=== PATIENT | female | born 1940 | race Caucasian/White ===

== ENCOUNTER 2018-12-25 10:05 | Observation (INO) | payer MEDICARE, BC ==
[2018-12-25] MEDS ORDERED: Sodium Chloride 0.9% 1,000 ML IV ONE ×2 (10:45→17:31)
--- NOTE | 2018-12-25 11:07 | EDM.PDOC ---
ED HPI GENERAL MEDICAL PROBLEM - General Chief Complaint: General Stated Complaint: CONFUSED Time Seen by Provider: 12/25/18 10:09 Source of Information: Reports: Patient History Limitations: Reports: No Limitations - History of Present Illness INITIAL COMMENTS - FREE TEXT/NARRATIVE: HISTORY AND PHYSICAL: History of present illness: Patient is a 78-year-old female who presents to the ED today for concern that her boss at work thought she was confused. Patient states she does not feel confused. Patient states she did have surgery approximately one week ago in order to have a port put in to receive chemotherapy through. Patient states she also had a colon resection little over a week ago and will start chemotherapy next week. Patient states she does not have any complaints today but states maybe feels a "little bit dehydrated and maybe this is what her boss was noticing." She denies any pain over the area of the port or any change in skin texture or color over the port. She denies any abdominal pain or drainage from any of her incision sites. Patient denies any other symptoms or concerns at this time. Patient denies fever, chills, chest pain, shortness of breath, or cough. Denies headache, neck stiff ness, change in vision, syncope, or near syncope. Denies nausea, vomiting, abdominal pain, diarrhea, constipation, or dysuria. Has not noted any blood in urine or stool. Patient has been eating and drinking appropriately. Review of systems: As per history of present illness and below otherwise all systems reviewed and negative. Past medical history: As per history of present illness and as reviewed below otherwise noncontributory. Surgical history: As per history of present illness and as reviewed below otherwise noncontributory. Social history: See social history for further information Family history: As per history of present illness and as reviewed below otherwise noncontributory. Physical exam: General: Patient is alert, oriented, and in no acute distress. Patient sitting comfortably on exam table. HEENT: Atraumatic, normocephalic, pupils equal and reactive bilaterally, negative for conjunctival pallor or scleral icterus, mucous membranes moist, TMs normal bilaterally, throat clear, neck supple, nontender, trachea midline. No drooling or trismus noted. No meningeal signs. No hot potato voice noted. Lungs: Clear to auscultation, breath sounds equal bilaterally, chest nontender. Heart: S1S2, regular rate and rhythm without overt murmur Abdomen: Soft, nondistended, nontender. Negative for masses or hepatosplenomegaly. Negative for costovertebral tenderness. Pelvis: Stable nontender. Genitourinary: Deferred. Rectal: Deferred. Skin: Intact, warm, dry. No lesions or rashes noted. Extremities: Atraumatic, negative for cords or calf pain. Neurovascular unremarkable. Neuro: Awake, alert, oriented. Cranial nerves II through XII unremarkable. Cerebellum unremarkable. Motor and sensory unremarkable throughout. Exam nonfocal. Notes: Dr. Tinsley directly involved in patient care. Patient breathing comfortably on room air with 96-97% on room air. Dr. Saenz, general surgery, curb side on patient and states would not place chest tube at this time and rather admit for observation to see if the does resolve / improve on its own. Dr. Gaston consult on patient and will admit to observation. Voices understanding and is agreeable to plan of care. Denies any further questions or concerns at this time. Diagnostics: CBC, CMP, bedside glucose, UA, CXR, EKG, Head CT, lipase, blood cultures x 2 Therapeutics: NS Impression: Right pneumothorax Right pleural effusion, small Left pleural effusion, small Left lung consolidation, unspecified Anemia Elevated renal function tests Plan: 1. Admit to observation to Dr. Gaston Definitive disposition and diagnosis as appropriate pending reevaluation and review of above. - Related Data Allergies Allergy/AdvReac Type Severity Reaction Status Date / Time No Known Allergies Allergy Verified 12/25/18 10:19 Home Meds: Home Meds Pantoprazole [ProTONIX] 1 tab PO DAILY 12/25/18 [History] Past Medical History HEENT History: Reports: Impaired Vision, Other (See Below) Other HEENT History: weaRS GLASSES Cardiovascular History: Reports: Hypertension - Past Surgical History GI Surgical History: Reports: Colonoscopy, Other (See Below) Other GI Surgeries/Procedures: aBDOMINAL SX Social & Family History - Family History Family Medical History: Noncontributory - Tobacco Use Smoking Status *Q: Never Smoker - Recreational Drug Use Recreational Drug Use: No ED ROS GENERAL - Review of Systems Review Of Systems: ROS reveals no pertinent complaints other than HPI. ED EXAM, GENERAL - Physical Exam Exam: See Below (see dictation) Course - Vital Signs Last Recorded V/S: Last Vital Signs Temp 35.7 C 12/25/18 12:52 Pulse 66 12/25/18 12:52 Resp 18 12/25/18 12:52 BP 133/61 12/25/18 12:52 Pulse Ox 96 12/25/18 12:52 - Orders/Labs/Meds Orders: Active Orders 24 hr Category Date Time Status Admission Status [Patient Status] [ADT] Stat ADT 12/25/18 13:12 Ordered EKG Documentation Completion [RC] STAT Care 12/25/18 10:24 Active CULTURE BLOOD [BC] Stat Lab 12/25/18 11:19 Received CULTURE BLOOD [BC] Stat Lab 12/25/18 11:40 Results Sodium Chloride 0.9% [Normal Saline] 1,000 ml Med 12/25/18 10:45 Active IV BOLUS Blood Culture x2 Reflex Set [OM.PC] Stat Oth 12/25/18 10:46 Ordered Medication Orders Sodium Chloride (Normal Saline) 1,000 mls @ 100 mls/hr IV BOLUS ONE Stop: 12/25/18 20:44 Last Admin: 12/25/18 11:25 Dose: 100 mls/hr Labs: Laboratory Tests 12/25/18 12/25/18 12/25/18 Range/Units 10:18 11:10 11:10 WBC 5.89 (4.0-11.0) K/uL RBC 3.50 L (4.30-5.90) M/uL Hgb 10.5 L (12.0-16.0) g/dL Hct 32.5 L (36.0-46.0) % MCV 92.9 (80.0-98.0) fL MCH 30.0 (27.0-32.0) pg MCHC 32.3 (31.0-37.0) g/dL RDW Std Deviation 48.3 (28.0-62.0) fl RDW Coeff of Mirian 14 (11.0-15.0) % Plt Count 306 (150-400) K/uL MPV 9.60 (7.40-12.00) fL Neut % (Auto) 78.3 (48.0-80.0) % Lymph % (Auto) 11.7 L (16.0-40.0) % [place] % (Auto) 7.1 (0.0-15.0) % Eos % (Auto) 2.2 (0.0-7.0) % Baso % (Auto) 0.7 (0.0-1.5) % Neut # (Auto) 4.6 (1.4-5.7) K/uL Lymph # (Auto) 0.7 (0.6-2.4) K/uL [place] # (Auto) 0.4 (0.0-0.8) K/uL Eos # (Auto) 0.1 (0.0-0.7) K/uL Baso # (Auto) 0.0 (0.0-0.1) K/uL Nucleated RBC % 0.0 /100WBC Nucleated RBCs # 0 K/uL Lactate (0.20-2.00) mmol/L Sodium 139 (136-145) mmol/L Potassium 4.8 (3.5-5.1) mmol/L Chloride 103 (98-107) mmol/L Carbon Dioxide 25.3 (21.0-32.0) mmol/L BUN 28 H (7.0-18.0) mg/dL Creatinine 1.9 H (0.6-1.0) mg/dL Est Cr Clr Drug Dosing TNP Estimated GFR (MDRD) 25.6 ml/min Glucose 118 H (74-106) mg/dL POC Glucose 120 H (60-110) mg/dL Calcium 10.2 H (8.5-10.1) mg/dL Total Bilirubin 0.5 (0.2-1.0) mg/dL AST 17 (15-37) IU/L ALT 12 L (14-63) IU/L Alkaline Phosphatase 114 (46-116) U/L Total Protein 7.8 (6.4-8.2) g/dL Albumin 3.2 L (3.4-5.0) g/dL Globulin 4.6 H (2.6-4.0) g/dL Albumin/Globulin Ratio 0.7 L (0.9-1.6) Lipase 57 L (73-393) U/L Urine Color Urine Appearance Urine pH (5.0-8.0) Ur Specific [place] (1.001-1.035) Urine Protein (NEGATIVE) mg/dL Urine Glucose (UA) (NEGATIVE) mg/dL Urine Ketones (NEGATIVE) mg/dL Urine Occult Blood (NEGATIVE) Urine Nitrite (NEGATIVE) Urine Bilirubin (NEGATIVE) Urine Urobilinogen (<2.0) EU/dL Ur Leukocyte Esterase (NEGATIVE) 12/25/18 12/25/18 Range/Units 11:10 11:20 WBC (4.0-11.0) K/uL RBC (4.30-5.90) M/uL Hgb (12.0-16.0) g/dL Hct (36.0-46.0) % MCV (80.0-98.0) fL MCH (27.0-32.0) pg MCHC (31.0-37.0) g/dL RDW Std Deviation (28.0-62.0) fl RDW Coeff of Mirian (11.0-15.0) % Plt Count (150-400) K/uL MPV (7.40-12.00) fL Neut % (Auto) (48.0-80.0) % Lymph % (Auto) (16.0-40.0) % [place] % (Auto) (0.0-15.0) % Eos % (Auto) (0.0-7.0) % Baso % (Auto) (0.0-1.5) % Neut # (Auto) (1.4-5.7) K/uL Lymph # (Auto) (0.6-2.4) K/uL [place] # (Auto) (0.0-0.8) K/uL Eos # (Auto) (0.0-0.7) K/uL Baso # (Auto) (0.0-0.1) K/uL Nucleated RBC % /100WBC Nucleated RBCs # K/uL Lactate 1.2 (0.20-2.00) mmol/L Sodium (136-145) mmol/L Potassium (3.5-5.1) mmol/L Chloride (98-107) mmol/L Carbon Dioxide (21.0-32.0) mmol/L BUN (7.0-18.0) mg/dL Creatinine (0.6-1.0) mg/dL Est Cr Clr Drug Dosing Estimated GFR (MDRD) ml/min Glucose (74-106) mg/dL POC Glucose (60-110) mg/dL Calcium (8.5-10.1) mg/dL Total Bilirubin (0.2-1.0) mg/dL AST (15-37) IU/L ALT (14-63) IU/L Alkaline Phosphatase (46-116) U/L Total Protein (6.4-8.2) g/dL Albumin (3.4-5.0) g/dL Globulin (2.6-4.0) g/dL Albumin/Globulin Ratio (0.9-1.6) Lipase (73-393) U/L Urine Color YELLOW Urine Appearance CLEAR Urine pH 7.0 (5.0-8.0) Ur Specific [place] 1.010 (1.001-1.035) Urine Protein NEGATIVE (NEGATIVE) mg/dL Urine Glucose (UA) NEGATIVE (NEGATIVE) mg/dL Urine Ketones NEGATIVE (NEGATIVE) mg/dL Urine Occult Blood NEGATIVE (NEGATIVE) Urine Nitrite NEGATIVE (NEGATIVE) Urine Bilirubin NEGATIVE (NEGATIVE) Urine Urobilinogen 0.2 (<2.0) EU/dL Ur Leukocyte Esterase NEGATIVE (NEGATIVE) Meds: Medications Generic Name Dose Route Start Last Admin Trade Name Freq PRN Reason Stop Dose Admin Sodium Chloride 1,000 mls @ 100 mls/hr 12/25/18 10:45 12/25/18 11:25 Normal Saline IV 12/25/18 20:44 100 mls/hr BOLUS ONE Administration Departure - Departure Time of Disposition: 13:27 Disposition: Refer to Observation Clinical Impression: Pleural effusion, Lung consolidation, Abnormal renal function test Pneumothorax Qualifiers: Pneumothorax type: postprocedural Qualified Code(s): J95.811 - Postprocedural pneumothorax Anemia Qualifiers: Anemia type: unspecified type Qualified Code(s): D64.9 - Anemia, unspecified - Discharge Information - My Orders Last 24 Hours: My Active Orders 12/25/18 10:24 EKG Documentation Completion [RC] STAT 12/25/18 10:45 Sodium Chloride 0.9% [Normal Saline] 1,000 ml IV BOLUS 12/25/18 10:46 Blood Culture x2 Reflex Set [OM.PC] Stat 12/25/18 11:19 CULTURE BLOOD [BC] Stat 12/25/18 11:40 CULTURE BLOOD [BC] Stat 12/25/18 13:12 Admission Status [Patient Status] [ADT] Stat - Assessment/Plan Last 24 Hours: My Active Orders 12/25/18 10:24 EKG Documentation Completion [RC] STAT 12/25/18 10:45 Sodium Chloride 0.9% [Normal Saline] 1,000 ml IV BOLUS 12/25/18 10:46 Blood Culture x2 Reflex Set [OM.PC] Stat 12/25/18 11:19 CULTURE BLOOD [BC] Stat 12/25/18 11:40 CULTURE BLOOD [BC] Stat 12/25/18 13:12 Admission Status [Patient Status] [ADT] Stat
[2018-12-25 11:52] LABS: CHLORIDE,CL 103 mmol/L (98-107); SODIUM,NA 139 mmol/L (136-145)
--- NOTE | 2018-12-25 12:35 | CT ---
INDICATION: Confusion. Comparison: None. TECHNIQUE: CT head without intravenous contrast; coronal and sagittal reformats. FINDINGS: No evidence of intracranial hemorrhage. No mass lesions. No evidence of shift of the midline structures. Small periventricular low densities most likely secondary to small vessel disease. The calvarium is unremarkable. IMPRESSION: Negative unenhanced head CT. Please note that all CT scans at this facility use dose modulation, iterative reconstruction, and/or weight-based dosing when appropriate to reduce radiation dose to as low as reasonably achievable. Dictated by Tai Lozano MD @ Dec 25 2018 12:29PM Signed by Dr. Tai Lozano @ Dec 25 2018 12:33PM
--- NOTE | 2018-12-25 12:48 | CR ---
INDICATION: Confusion COMPARISON: None available. FINDINGS: PA and lateral views of the chest were obtained. There is a mild left pleural effusion which may also have a sub pneumonic component. There is also mild consolidation of the left lateral lung base which could be atelectasis or pneumonia. There is a tiny right pleural effusion. The rest of the chest is clear. There is a right internal jugular infusion port with its tip in satisfactory position in the superior vena cava at the cavoatrial junction. There is no sign of pneumothorax on the right. The heart is normal in size. The mediastinum is normal in appearance. The osseous structures are normal in appearance for the patient`s age. IMPRESSION: Mild left pleural effusion with possible sub pneumonic component. Mild consolidation of the left lung base, consistent with atelectasis or pneumonia. Tiny right pleural effusion. Satisfactory positioning of a right subclavian infusion port. Dictated by Yung Bond MD @ Dec 25 2018 12:43PM Signed by Dr. Yung Bond @ Dec 25 2018 12:45PM
[2018-12-25] MEDS ORDERED: Ondansetron 4 MG Tab.DIS PO PRN (15:59)
[2018-12-25] MEDS ORDERED: Ondansetron 4 MG/2 ML SDV IVPUSH PRN (15:59)
[2018-12-25] MEDS ORDERED: Acetaminophen 325 MG Tab PO PRN (15:59)
--- NOTE | 2018-12-25 16:39 | PCM.HP.2 ---
<Oleksandr Romero M - Last Filed: 12/25/18 17:33> H&P History of Present Illness - General Date of Service: 12/25/18 Admit Problem/Dx: Admission Diagnosis/Problem Admission Diagnosis/Problem Pneumothorax - History of Present Illness Initial Comments - Free Text/Narative: 78-year-old female presented to [facility] ER after her employers told her that she appeared more confused and fatigued lately. Patient reports that she has felt fine but came to the ER to get evaluated. She has a PMH of colon cancer recently had part of her colon resected in November 2018. Furthermore, patient has a right chest port for chemotherapy that was placed on 12/22/18. She is to being chemotherapy next week. At bedside, patient denies any fevers, chills, nausea, vomiting, shortness of breath, chest pain, diarrhea, numbness or tingling. In [facility] ER, urinalysis was negative, CT head was negative. A CXR revealed a 20% right hydropneumothorax. Patient admitted for further evaluation and treatment. - Related Data Allergies/Adverse Reactions: Allergies Allergy/AdvReac Type Severity Reaction Status Date / Time Sulfa (Sulfonamide Allergy Mild Hives Verified 12/25/18 14:55 Antibiotics) sulfamethoxazole Allergy Mild Hives Verified 12/25/18 14:55 [From Bactrim] trimethoprim [From Bactrim] Allergy Mild Hives Verified 12/25/18 14:55 Home Medications: Home Meds Citalopram [Citalopram HBr] 40 mg PO DAILY 12/25/18 [History] Docusate Sodium [Dok] 100 mg PO BID PRN 12/25/18 [History] Metoprolol Tartrate 25 mg PO BID 12/25/18 [History] Ondansetron [Zofran ODT] 4 mg PO ASDIRECTED PRN 12/25/18 [History] Pantoprazole [ProTONIX] 40 mg PO DAILY 12/25/18 [History] Sodium Bicarbonate 650 mg PO BID 12/25/18 [History] Vit B Cmplx 3/Fa/Vit C/Biotin [Sulfuric Acid Plant Operator-David Rx Tablet] 1 tab PO DAILY 12/25/18 [ History] Past Medical History - Past Health History Medical/Surgical History: Denies Medical/Surgical History HEENT History: Reports: Cataract, Impaired Vision, Other (See Below) Other HEENT History: Wears glasses. Cardiovascular History: Reports: Hypertension Other OB/BYN History: Hysterectomy. Oncologic (Cancer) History: Reports: Colon - Past Surgical History GI Surgical History: Reports: Colonoscopy, Other (See Below) Other GI Surgeries/Procedures: Colon Resection. Social & Family History - Family History Family Medical History: Noncontributory - Tobacco Use Smoking Status *Q: Never Smoker Second Hand Smoke Exposure: No - Caffeine Use Caffeine Use: Reports: None - Recreational Drug Use Recreational Drug Use: No H&P Review of Systems - Review of Systems: Review Of Systems: ROS reveals no pertinent complaints other than HPI. Exam - Exam Exam: See Below - Vital Signs Vital Signs: Last Vital Signs Temp 97.8 F 12/25/18 14:52 Pulse 74 12/25/18 14:52 Resp 17 12/25/18 14:52 BP 136/64 12/25/18 14:52 Pulse Ox 100 12/25/18 15:59 Weight: 59.421 kg - Exam General: Alert, Oriented, Cooperative (no acute distress) HEENT: Conjunctiva Clear, EOMI, Hearing Intact, Pupils Equal, Pupils Reactive Neck: Supple, Trachea Midline Lungs: Normal Respiratory Effort, Other (decreased breath sounds over right upper lobe) Cardiovascular: Regular Rate, Regular Rhythm GI/Abdominal Exam: Normal Bowel Sounds, Soft, Non-Tender, No Distention Extremities: Normal Inspection, Other (trace pitting edema bilaterally.) Peripheral Pulses: 2+: Posterior Tibial (L), Posterior Tibial (R) Skin: Warm, Dry, Intact, Other (port site on right chest) Neurological: Cranial Nerves Intact, Strength Equal Bilateral, Normal Speech, Normal Tone, Sensation Intact Neuro Extensive - Mental Status: Alert, Oriented x3, Normal Mood/Affect Psychiatric: Alert, Normal Affect, Normal Mood - Patient Data Lab Results Last 24 hrs: Laboratory Results - last 24 hr 12/25/18 12/25/18 12/25/18 Range/Units 10:18 11:10 11:10 WBC 5.89 (4.0-11.0) K/uL RBC 3.50 L (4.30-5.90) M/uL Hgb 10.5 L (12.0-16.0) g/dL Hct 32.5 L (36.0-46.0) % MCV 92.9 (80.0-98.0) fL MCH 30.0 (27.0-32.0) pg MCHC 32.3 (31.0-37.0) g/dL RDW Std Deviation 48.3 (28.0-62.0) fl RDW Coeff of Mirian 14 (11.0-15.0) % Plt Count 306 (150-400) K/uL MPV 9.60 (7.40-12.00) fL Neut % (Auto) 78.3 (48.0-80.0) % Lymph % (Auto) 11.7 L (16.0-40.0) % [place] % (Auto) 7.1 (0.0-15.0) % Eos % (Auto) 2.2 (0.0-7.0) % Baso % (Auto) 0.7 (0.0-1.5) % Neut # (Auto) 4.6 (1.4-5.7) K/uL Lymph # (Auto) 0.7 (0.6-2.4) K/uL [place] # (Auto) 0.4 (0.0-0.8) K/uL Eos # (Auto) 0.1 (0.0-0.7) K/uL Baso # (Auto) 0.0 (0.0-0.1) K/uL Nucleated RBC % 0.0 /100WBC Nucleated RBCs # 0 K/uL Lactate (0.20-2.00) mmol/L Sodium 139 (136-145) mmol/L Potassium 4.8 (3.5-5.1) mmol/L Chloride 103 (98-107) mmol/L Carbon Dioxide 25.3 (21.0-32.0) mmol/L BUN 28 H (7.0-18.0) mg/dL Creatinine 1.9 H (0.6-1.0) mg/dL Est Cr Clr Drug Dosing TNP Estimated GFR (MDRD) 25.6 ml/min Glucose 118 H (74-106) mg/dL POC Glucose 120 H (60-110) mg/dL Calcium 10.2 H (8.5-10.1) mg/dL Total Bilirubin 0.5 (0.2-1.0) mg/dL AST 17 (15-37) IU/L ALT 12 L (14-63) IU/L Alkaline Phosphatase 114 (46-116) U/L Total Protein 7.8 (6.4-8.2) g/dL Albumin 3.2 L (3.4-5.0) g/dL Globulin 4.6 H (2.6-4.0) g/dL Albumin/Globulin Ratio 0.7 L (0.9-1.6) Lipase 57 L (73-393) U/L Urine Color Urine Appearance Urine pH (5.0-8.0) Ur Specific [place] (1.001-1.035) Urine Protein (NEGATIVE) mg/dL Urine Glucose (UA) (NEGATIVE) mg/dL Urine Ketones (NEGATIVE) mg/dL Urine Occult Blood (NEGATIVE) Urine Nitrite (NEGATIVE) Urine Bilirubin (NEGATIVE) Urine Urobilinogen (<2.0) EU/dL Ur Leukocyte Esterase (NEGATIVE) 12/25/18 12/25/18 Range/Units 11:10 11:20 WBC (4.0-11.0) K/uL RBC (4.30-5.90) M/uL Hgb (12.0-16.0) g/dL Hct (36.0-46.0) % MCV (80.0-98.0) fL MCH (27.0-32.0) pg MCHC (31.0-37.0) g/dL RDW Std Deviation (28.0-62.0) fl RDW Coeff of Mirian (11.0-15.0) % Plt Count (150-400) K/uL MPV (7.40-12.00) fL Neut % (Auto) (48.0-80.0) % Lymph % (Auto) (16.0-40.0) % [place] % (Auto) (0.0-15.0) % Eos % (Auto) (0.0-7.0) % Baso % (Auto) (0.0-1.5) % Neut # (Auto) (1.4-5.7) K/uL Lymph # (Auto) (0.6-2.4) K/uL [place] # (Auto) (0.0-0.8) K/uL Eos # (Auto) (0.0-0.7) K/uL Baso # (Auto) (0.0-0.1) K/uL Nucleated RBC % /100WBC Nucleated RBCs # K/uL Lactate 1.2 (0.20-2.00) mmol/L Sodium (136-145) mmol/L Potassium (3.5-5.1) mmol/L Chloride (98-107) mmol/L Carbon Dioxide (21.0-32.0) mmol/L BUN (7.0-18.0) mg/dL Creatinine (0.6-1.0) mg/dL Est Cr Clr Drug Dosing Estimated GFR (MDRD) ml/min Glucose (74-106) mg/dL POC Glucose (60-110) mg/dL Calcium (8.5-10.1) mg/dL Total Bilirubin (0.2-1.0) mg/dL AST (15-37) IU/L ALT (14-63) IU/L Alkaline Phosphatase (46-116) U/L Total Protein (6.4-8.2) g/dL Albumin (3.4-5.0) g/dL Globulin (2.6-4.0) g/dL Albumin/Globulin Ratio (0.9-1.6) Lipase (73-393) U/L Urine Color YELLOW Urine Appearance CLEAR Urine pH 7.0 (5.0-8.0) Ur Specific [place] 1.010 (1.001-1.035) Urine Protein NEGATIVE (NEGATIVE) mg/dL Urine Glucose (UA) NEGATIVE (NEGATIVE) mg/dL Urine Ketones NEGATIVE (NEGATIVE) mg/dL Urine Occult Blood NEGATIVE (NEGATIVE) Urine Nitrite NEGATIVE (NEGATIVE) Urine Bilirubin NEGATIVE (NEGATIVE) Urine Urobilinogen 0.2 (<2.0) EU/dL Ur Leukocyte Esterase NEGATIVE (NEGATIVE) Result Diagrams: 12/25/18 11:10 12/25/18 11:10 [place] Results Last 24 hrs: Microbiology 12/25/18 11:40 Anaerobic Blood Culture - Final Blood - Venous - Lab Draw Problem List Initiated/Reviewed/Updated: Yes Orders Last 24hrs: Active Orders 24 hr Category Date Time Status Admission Status [Patient Status] [ADT] Stat ADT 12/25/18 13:12 Active EKG Documentation Completion [RC] STAT Care 12/25/18 10:24 Active Oxygen Therapy [RC] PRN Care 12/25/18 15:59 Active Up With Assistance [RC] ASDIRECTED Care 12/25/18 15:59 Active VTE/DVT Education [RC] PER UNIT ROUTINE Care 12/25/18 15:59 Active Vital Signs [RC] Q4H Care 12/25/18 15:59 Active Regular Diet [DIET] Diet 12/25/18 Lunch Active BASIC METABOLIC PANEL,BMP [CHEM] AM Lab 12/26/18 05:11 Ordered CBC WITH AUTO DIFF [HEME] AM Lab 12/26/18 05:11 Ordered CULTURE BLOOD [BC] Stat Lab 12/25/18 11:19 Received CULTURE BLOOD [BC] Stat Lab 12/25/18 11:40 Results Acetaminophen [Tylenol] Med 12/25/18 15:59 Active 650 mg PO Q4H PRN Citalopram [Celexa] Med 12/26/18 09:00 Ordered 40 mg PO DAILY Heparin Sodium Med 12/25/18 16:00 Active 5,000 units SUBCUT Q8H Metoprolol Tartrate [Lopressor] Med 12/25/18 21:00 Ordered 25 mg PO BID Ondansetron [Zofran ODT] Med 12/25/18 15:59 Active 4 mg PO Q4H PRN Ondansetron [Zofran] Med 12/25/18 15:59 Active 4 mg IVPUSH Q4H PRN Pantoprazole [ProTONIX] Med 12/26/18 09:00 Ordered 40 mg PO DAILY Sodium Bicarbonate Med 12/25/18 21:00 Ordered 650 mg PO BID Blood Culture x2 Reflex Set [OM.PC] Stat Oth 12/25/18 10:46 Ordered Resuscitation Status Routine Resus Stat 12/25/18 15:59 Ordered Medication Orders Acetaminophen (Tylenol) 650 mg PO Q4H PRN PRN Reason: Pain (Mild 1-3)/fever Citalopram Hydrobromide (Celexa) 40 mg PO DAILY MARCOS Heparin Sodium (Porcine) (Heparin Sodium) 5,000 units SUBCUT Q8H MARCOS Metoprolol Tartrate (Lopressor) 25 mg PO BID MARCOS Ondansetron HCl (Zofran Odt) 4 mg PO Q4H PRN PRN Reason: nausea, able to take PO Ondansetron HCl (Zofran) 4 mg IVPUSH Q4H PRN PRN Reason: Nausea Pantoprazole Sodium (Protonix) 40 mg PO DAILY MARCOS Sodium Bicarbonate (Sodium Bicarbonate) 650 mg PO BID MARCOS Assessment/Plan Comment:: Assessment: 1. Right hydropneumothorax. 2. Acute kidney injury. 3. Colorectal cancer awaiting chemotherapy. 3. Past medical history of hypertension. Plan: 1. For right pneumothorax, consulted Dr. Pittman and will repeat CXR this evening and will repeat another CXR tomorrow morning. Appreciate any further recommendations. As per Dr. Saenz, who was curb sided by ER, recommended keeping patient on high flow oxygen via non-rebreather. 2. For acute kidney injury, will start patient on IV fluids. 3. For past medical history, will continue with home medications. <Anibal Gaston - Last Filed: 12/25/18 17:52> H&P History of Present Illness - General Admit Problem/Dx: Admission Diagnosis/Problem Admission Diagnosis/Problem Pneumothorax I have examined the patient independently of medical laboratory technicians, Dr. Nick MD. I have discussed the case with him. I have reviewed and agree with the examination and plan as outlined by him. Please see orders. Exam - Vital Signs Vital Signs: Last Vital Signs Temp 36.6 C 12/25/18 14:52 Pulse 74 12/25/18 14:52 Resp 17 12/25/18 14:52 BP 136/64 12/25/18 14:52 Pulse Ox 100 12/25/18 15:59 - Patient Data Lab Results Last 24 hrs: Laboratory Results - last 24 hr 12/25/18 12/25/18 12/25/18 Range/Units 10:18 11:10 11:10 WBC 5.89 (4.0-11.0) K/uL RBC 3.50 L (4.30-5.90) M/uL Hgb 10.5 L (12.0-16.0) g/dL Hct 32.5 L (36.0-46.0) % MCV 92.9 (80.0-98.0) fL MCH 30.0 (27.0-32.0) pg MCHC 32.3 (31.0-37.0) g/dL RDW Std Deviation 48.3 (28.0-62.0) fl RDW Coeff of Mirian 14 (11.0-15.0) % Plt Count 306 (150-400) K/uL MPV 9.60 (7.40-12.00) fL Neut % (Auto) 78.3 (48.0-80.0) % Lymph % (Auto) 11.7 L (16.0-40.0) % [place] % (Auto) 7.1 (0.0-15.0) % Eos % (Auto) 2.2 (0.0-7.0) % Baso % (Auto) 0.7 (0.0-1.5) % Neut # (Auto) 4.6 (1.4-5.7) K/uL Lymph # (Auto) 0.7 (0.6-2.4) K/uL [place] # (Auto) 0.4 (0.0-0.8) K/uL Eos # (Auto) 0.1 (0.0-0.7) K/uL Baso # (Auto) 0.0 (0.0-0.1) K/uL Nucleated RBC % 0.0 /100WBC Nucleated RBCs # 0 K/uL Lactate (0.20-2.00) mmol/L Sodium 139 (136-145) mmol/L Potassium 4.8 (3.5-5.1) mmol/L Chloride 103 (98-107) mmol/L Carbon Dioxide 25.3 (21.0-32.0) mmol/L BUN 28 H (7.0-18.0) mg/dL Creatinine 1.9 H (0.6-1.0) mg/dL Est Cr Clr Drug Dosing TNP Estimated GFR (MDRD) 25.6 ml/min Glucose 118 H (74-106) mg/dL POC Glucose 120 H (60-110) mg/dL Calcium 10.2 H (8.5-10.1) mg/dL Total Bilirubin 0.5 (0.2-1.0) mg/dL AST 17 (15-37) IU/L ALT 12 L (14-63) IU/L Alkaline Phosphatase 114 (46-116) U/L Total Protein 7.8 (6.4-8.2) g/dL Albumin 3.2 L (3.4-5.0) g/dL Globulin 4.6 H (2.6-4.0) g/dL Albumin/Globulin Ratio 0.7 L (0.9-1.6) Lipase 57 L (73-393) U/L Urine Color Urine Appearance Urine pH (5.0-8.0) Ur Specific [place] (1.001-1.035) Urine Protein (NEGATIVE) mg/dL Urine Glucose (UA) (NEGATIVE) mg/dL Urine Ketones (NEGATIVE) mg/dL Urine Occult Blood (NEGATIVE) Urine Nitrite (NEGATIVE) Urine Bilirubin (NEGATIVE) Urine Urobilinogen (<2.0) EU/dL Ur Leukocyte Esterase (NEGATIVE) 12/25/18 12/25/18 Range/Units 11:10 11:20 WBC (4.0-11.0) K/uL RBC (4.30-5.90) M/uL Hgb (12.0-16.0) g/dL Hct (36.0-46.0) % MCV (80.0-98.0) fL MCH (27.0-32.0) pg MCHC (31.0-37.0) g/dL RDW Std Deviation (28.0-62.0) fl RDW Coeff of Mirian (11.0-15.0) % Plt Count (150-400) K/uL MPV (7.40-12.00) fL Neut % (Auto) (48.0-80.0) % Lymph % (Auto) (16.0-40.0) % [place] % (Auto) (0.0-15.0) % Eos % (Auto) (0.0-7.0) % Baso % (Auto) (0.0-1.5) % Neut # (Auto) (1.4-5.7) K/uL Lymph # (Auto) (0.6-2.4) K/uL [place] # (Auto) (0.0-0.8) K/uL Eos # (Auto) (0.0-0.7) K/uL Baso # (Auto) (0.0-0.1) K/uL Nucleated RBC % /100WBC Nucleated RBCs # K/uL Lactate 1.2 (0.20-2.00) mmol/L Sodium (136-145) mmol/L Potassium (3.5-5.1) mmol/L Chloride (98-107) mmol/L Carbon Dioxide (21.0-32.0) mmol/L BUN (7.0-18.0) mg/dL Creatinine (0.6-1.0) mg/dL Est Cr Clr Drug Dosing Estimated GFR (MDRD) ml/min Glucose (74-106) mg/dL POC Glucose (60-110) mg/dL Calcium (8.5-10.1) mg/dL Total Bilirubin (0.2-1.0) mg/dL AST (15-37) IU/L ALT (14-63) IU/L Alkaline Phosphatase (46-116) U/L Total Protein (6.4-8.2) g/dL Albumin (3.4-5.0) g/dL Globulin (2.6-4.0) g/dL Albumin/Globulin Ratio (0.9-1.6) Lipase (73-393) U/L Urine Color YELLOW Urine Appearance CLEAR Urine pH 7.0 (5.0-8.0) Ur Specific [place] 1.010 (1.001-1.035) Urine Protein NEGATIVE (NEGATIVE) mg/dL Urine Glucose (UA) NEGATIVE (NEGATIVE) mg/dL Urine Ketones NEGATIVE (NEGATIVE) mg/dL Urine Occult Blood NEGATIVE (NEGATIVE) Urine Nitrite NEGATIVE (NEGATIVE) Urine Bilirubin NEGATIVE (NEGATIVE) Urine Urobilinogen 0.2 (<2.0) EU/dL Ur Leukocyte Esterase NEGATIVE (NEGATIVE) Result Diagrams: 12/25/18 11:10 12/25/18 11:10 [place] Results Last 24 hrs: Microbiology 12/25/18 11:40 Anaerobic Blood Culture - Final Blood - Venous - Lab Draw Orders Last 24hrs: Active Orders 24 hr Category Date Time Status Admission Status [Patient Status] [ADT] Stat ADT 12/25/18 13:12 Active EKG Documentation Completion [RC] STAT Care 12/25/18 10:24 Active Notify Provider Consults [RC] ASDIRECTED Care 12/25/18 16:58 Active Oxygen Therapy [RC] PRN Care 12/25/18 15:59 Active Up With Assistance [RC] ASDIRECTED Care 12/25/18 15:59 Active VTE/DVT Education [RC] PER UNIT ROUTINE Care 12/25/18 15:59 Active Vital Signs [RC] Q4H Care 12/25/18 15:59 Active Consult to Physician [CONS] Routine Cons 12/25/18 16:58 Active Regular Diet [DIET] Diet 12/25/18 Lunch Active Chest 1V Frontal [CR] Timed Exams 12/26/18 06:00 Ordered Chest 2V [CR] Timed Exams 12/25/18 23:00 Ordered BASIC METABOLIC PANEL,BMP [CHEM] AM Lab 12/26/18 05:11 Ordered CBC WITH AUTO DIFF [HEME] AM Lab 12/26/18 05:11 Ordered CULTURE BLOOD [BC] Stat Lab 12/25/18 11:19 Received CULTURE BLOOD [BC] Stat Lab 12/25/18 11:40 Results Acetaminophen [Tylenol] Med 12/25/18 15:59 Active 650 mg PO Q4H PRN Citalopram [Celexa] Med 12/26/18 09:00 Active 40 mg PO DAILY Docusate Sodium [Colace] Med 12/25/18 16:44 Active 100 mg PO BID PRN Heparin Sodium Med 12/25/18 16:00 Active 5,000 units SUBCUT Q8H Metoprolol Tartrate [Lopressor] Med 12/25/18 21:00 Active 25 mg PO BID Ondansetron [Zofran ODT] Med 12/25/18 15:59 Active 4 mg PO Q4H PRN Ondansetron [Zofran] Med 12/25/18 15:59 Active 4 mg IVPUSH Q4H PRN Pantoprazole [ProTONIX] Med 12/26/18 09:00 Active 40 mg PO DAILY Sodium Bicarbonate Med 12/25/18 21:00 Active 650 mg PO BID Sodium Chloride 0.9% [Normal Saline] 1,000 ml Med 12/25/18 17:31 Active IV STAT Blood Culture x2 Reflex Set [OM.PC] Stat Oth 12/25/18 10:46 Ordered Resuscitation Status Routine Resus Stat 12/25/18 15:59 Ordered Medication Orders Acetaminophen (Tylenol) 650 mg PO Q4H PRN PRN Reason: Pain (Mild 1-3)/fever Citalopram Hydrobromide (Celexa) 40 mg PO DAILY MARCOS Docusate Sodium (Colace) 100 mg PO BID PRN PRN Reason: Constipation Heparin Sodium (Porcine) (Heparin Sodium) 5,000 units SUBCUT Q8H MARCOS Last Admin: 12/25/18 17:22 Dose: 5,000 units Sodium Chloride (Normal Saline) 1,000 mls @ 75 mls/hr IV STAT ONE Stop: 12/26/18 06:50 Metoprolol Tartrate (Lopressor) 25 mg PO BID [facility] Ondansetron HCl (Zofran Odt) 4 mg PO Q4H PRN PRN Reason: nausea, able to take PO Ondansetron HCl (Zofran) 4 mg IVPUSH Q4H PRN PRN Reason: Nausea Pantoprazole Sodium (Protonix) 40 mg PO DAILY [facility] Sodium Bicarbonate (Sodium Bicarbonate) 650 mg PO BID MARCOS
[2018-12-25] MEDS ORDERED: Docusate Sodium 100 MG Cap PO PRN (16:44)
[2018-12-25] MEDS: Heparin Sodium 5,000 Units/ML Vial SUBCUT SCH ×2 (17:22→23:07)
--- NOTE | 2018-12-25 17:57 | PCM.SN ---
- Free Text/Narrative Note: see dict [id number]; 1) obtain op note and discharge summary 2) cxr q6 X 2 3) may need ct surgery consu; lt if hydropneumothorex not resolving
[2018-12-25] MEDS: Metoprolol Tartrate 25 MG Tab PO SCH (20:02)
[2018-12-25] MEDS: Sodium Bicarbonate 650 MG Tab PO SCH (20:02)
--- NOTE | 2018-12-25 23:52 | CR ---
Clinical INDICATION: Right-sided pneumonia. COMPARISON: 12/25/2018. FINDINGS: There are small bilateral pleural effusions larger on the left side. The left effusion appears decreased since the e prior exam. There is a Port-A-Cath on the right side chest directed into the upper superior vena cava. The pulmonary vasculature is normal. The bony thorax appears intact. IMPRESSION: Small bilateral pleural effusions larger on the left side. The left effusion has decreased since radiograph performed earlier the same date. Dictated by Chevy Babcock MD @ Dec 25 2018 11:45PM Signed by Dr. Chevy Babcock @ Dec 25 2018 11:50PM
--- NOTE | 2018-12-26 06:32 | CR ---
INDICATION: Followup right-sided pneumothorax. COMPARISON: Two-view chest December 25, 2018 at 10:53 p.m. and at 11:50 a.m. TECHNIQUE: Portable AP chest. FINDINGS: Normal size cardiac silhouette. Port-A-Cath extending from the right subclavian vein with the tip in the superior vena cava. Still appreciated is about 20 percent pneumothorax without any interval change. Left-sided pleural effusion. Impression : 1. No interval change in the extent of pneumothorax when compared to the previous studies. 2. About 20 percent pneumothorax right chest with a Port-A-Cath in place. 3. Stable left-sided pleural effusion. 4. Port-A-Cath extending from the right subclavian vein with the tip in the superior vena cava. Dictated by Tai Lozano MD @ Dec 26 2018 6:27AM Signed by Dr. Tai Lozano @ Dec 26 2018 6:32AM
[2018-12-26] MEDS ORDERED: Sodium Chloride 0.9% 1,000 ML IV ONE (07:19)
[2018-12-26] MEDS: Sodium Bicarbonate 650 MG Tab PO SCH (08:43)
[2018-12-26] MEDS: Heparin Sodium 5,000 Units/ML Vial SUBCUT SCH (08:44)
[2018-12-26] MEDS: Metoprolol Tartrate 25 MG Tab PO SCH (08:44)
[2018-12-26] MEDS ORDERED: Citalopram 20 MG Tab PO SCH (09:00)
[2018-12-26] MEDS ORDERED: Pantoprazole 40 MG Tab.CR PO SCH (09:00)
--- NOTE | 2018-12-26 09:29 | CONS ---
DATE OF CONSULTATION: 12/25/2018 DATE OF : 1940 PRIMARY CARE PHYSICIAN: Neftali Wilson MD Consult from Dr. Oleksandr Romero, hospitalist. CONSULTING QUESTION: Right side pneumothorax, status post central line placement. HISTORY OF PRESENT ILLNESS: The patient is 78-year-old lady and seems to be alert, awake, but sometimes a little bit confused about the day, who for some reason was seen in emergency room, got a chest x-ray, and noted to have right-sided pneumothorax. The patient has a central line placed in [place]. The best I can make out is December 13, today is December 25. This was about 12 days ago. She has a central line placed to the right side and now has a right-sided pneumothorax. The patient has been home after the central line placement about 10 days ago, and according to patient, she is happy and denied any hemodynamic instability, denied any shortness of breath, denied any dyspnea upon exertion. PAST MEDICAL HISTORY: Significant for hypertension, and denied diabetes, MS, CVA, and also colorectal cancer. PAST SURGICAL HISTORY: Open colon resection and normal vaginal delivery x2 and central line placement to the right. ALLERGIES AND MEDICATIONS: Please refer to nursing for details. PHYSICAL EXAMINATION: GENERAL: She is a very pleasant lady, and in fact very talkative and complains she is hungry, wants to eat, in no acute distress. HEENT: Normocephalic and atraumatic. Sclerae are anicteric. The patient's trachea is midline, and there is no cutaneous crepitus. LUNGS: Clear to auscultation. HEART: Regular rate and rhythm. ABDOMEN: Soft and nondistended. No pulsating tender midline abdominal structure. Nontender. Well-healed midline surgical scar. No hernia. LABORATORY DATA: Upon consultation, white count is 6,000, H and H are 11 and 33, and platelets are 306,000. Lactate is 1.2. BUN is 28, creatinine is 1.9, watching urine output. Total bilirubin is 0.5. AST and ALT of 17 and 12, and alkaline phosphatase is 114. Urine has no signs or symptoms of UTI. Chest x-ray with 20% right-sided pneumothorax. IMPRESSION: Pneumothorax after 10 days. 1. We will call up the original place and get the discharge summary to see whether they noticed the pneumothorax. If not, this could be a delayed pneumothorax, which is not very uncommon, sometimes it happens. 2. The pneumothorax has been there for at least 10 days and probably is a stable pneumothorax, and on examination, there is no hemodynamic instability. We will obtain the operative note and the discharge summary, and also we will try to get 2 more x-rays in next every 6 hours, one tonight and one tomorrow morning, and if they both show not much change, we will decide not to put a chest tube to the patient. If it is otherwise, then we will reassess the situation. Plan has been discussed with medical team. We will follow the patient with you. As always, thank you for the kind referral today. SANDI / MANUEL /[id number]
--- NOTE | 2018-12-26 10:18 | PCM.SURGPN ---
- General Info Date of Service: 12/26/18 Functional Status: Reports: Pain Controlled (no respiratory complaint) - Patient Data Vitals - Most Recent: Last Vital Signs Temp 97.1 F 12/26/18 08:00 Pulse 52 L 12/26/18 08:00 Resp 18 12/26/18 08:00 BP 138/65 12/26/18 08:00 Pulse Ox 97 12/26/18 08:00 Weight - Most Recent: 131 lb I&O - Last 24 Hours: Intake & Output 12/25/18 12/26/18 12/26/18 22:59 06:59 14:59 Intake Total 1422 Output Total 1025 Balance 397 Lab Results Last 24 Hrs: Laboratory Results - last 24 hr 12/25/18 12/25/18 12/25/18 Range/Units 10:18 11:10 11:10 WBC 5.89 (4.0-11.0) K/uL RBC 3.50 L (4.30-5.90) M/uL Hgb 10.5 L (12.0-16.0) g/dL Hct 32.5 L (36.0-46.0) % MCV 92.9 (80.0-98.0) fL MCH 30.0 (27.0-32.0) pg MCHC 32.3 (31.0-37.0) g/dL RDW Std Deviation 48.3 (28.0-62.0) fl RDW Coeff of Mirian 14 (11.0-15.0) % Plt Count 306 (150-400) K/uL MPV 9.60 (7.40-12.00) fL Neut % (Auto) 78.3 (48.0-80.0) % Lymph % (Auto) 11.7 L (16.0-40.0) % [place] % (Auto) 7.1 (0.0-15.0) % Eos % (Auto) 2.2 (0.0-7.0) % Baso % (Auto) 0.7 (0.0-1.5) % Neut # (Auto) 4.6 (1.4-5.7) K/uL Lymph # (Auto) 0.7 (0.6-2.4) K/uL [place] # (Auto) 0.4 (0.0-0.8) K/uL Eos # (Auto) 0.1 (0.0-0.7) K/uL Baso # (Auto) 0.0 (0.0-0.1) K/uL Nucleated RBC % 0.0 /100WBC Nucleated RBCs # 0 K/uL Lactate (0.20-2.00) mmol/L Sodium 139 (136-145) mmol/L Potassium 4.8 (3.5-5.1) mmol/L Chloride 103 (98-107) mmol/L Carbon Dioxide 25.3 (21.0-32.0) mmol/L BUN 28 H (7.0-18.0) mg/dL Creatinine 1.9 H (0.6-1.0) mg/dL Est Cr Clr Drug Dosing TNP Estimated GFR (MDRD) 25.6 ml/min Glucose 118 H (74-106) mg/dL POC Glucose 120 H (60-110) mg/dL Calcium 10.2 H (8.5-10.1) mg/dL Total Bilirubin 0.5 (0.2-1.0) mg/dL AST 17 (15-37) IU/L ALT 12 L (14-63) IU/L Alkaline Phosphatase 114 (46-116) U/L Total Protein 7.8 (6.4-8.2) g/dL Albumin 3.2 L (3.4-5.0) g/dL Globulin 4.6 H (2.6-4.0) g/dL Albumin/Globulin Ratio 0.7 L (0.9-1.6) Lipase 57 L (73-393) U/L Urine Color Urine Appearance Urine pH (5.0-8.0) Ur Specific [place] (1.001-1.035) Urine Protein (NEGATIVE) mg/dL Urine Glucose (UA) (NEGATIVE) mg/dL Urine Ketones (NEGATIVE) mg/dL Urine Occult Blood (NEGATIVE) Urine Nitrite (NEGATIVE) Urine Bilirubin (NEGATIVE) Urine Urobilinogen (<2.0) EU/dL Ur Leukocyte Esterase (NEGATIVE) 12/25/18 12/25/18 12/26/18 Range/Units 11:10 11:20 05:25 WBC 5.52 (4.0-11.0) K/uL RBC 3.17 L (4.30-5.90) M/uL Hgb 9.3 L (12.0-16.0) g/dL Hct 30.0 L (36.0-46.0) % MCV 94.6 (80.0-98.0) fL MCH 29.3 (27.0-32.0) pg MCHC 31.0 (31.0-37.0) g/dL RDW Std Deviation 49.1 (28.0-62.0) fl RDW Coeff of Mirian 14 (11.0-15.0) % Plt Count 413 H (150-400) K/uL MPV 9.50 (7.40-12.00) fL Neut % (Auto) 61.4 (48.0-80.0) % Lymph % (Auto) 20.8 (16.0-40.0) % [place] % (Auto) 8.7 (0.0-15.0) % Eos % (Auto) 8.0 H (0.0-7.0) % Baso % (Auto) 1.1 (0.0-1.5) % Neut # (Auto) 3.4 (1.4-5.7) K/uL Lymph # (Auto) 1.2 (0.6-2.4) K/uL [place] # (Auto) 0.5 (0.0-0.8) K/uL Eos # (Auto) 0.4 (0.0-0.7) K/uL Baso # (Auto) 0.1 (0.0-0.1) K/uL Nucleated RBC % 0.0 /100WBC Nucleated RBCs # 0 K/uL Lactate 1.2 (0.20-2.00) mmol/L Sodium (136-145) mmol/L Potassium (3.5-5.1) mmol/L Chloride (98-107) mmol/L Carbon Dioxide (21.0-32.0) mmol/L BUN (7.0-18.0) mg/dL Creatinine (0.6-1.0) mg/dL Est Cr Clr Drug Dosing Estimated GFR (MDRD) ml/min Glucose (74-106) mg/dL POC Glucose (60-110) mg/dL Calcium (8.5-10.1) mg/dL Total Bilirubin (0.2-1.0) mg/dL AST (15-37) IU/L ALT (14-63) IU/L Alkaline Phosphatase (46-116) U/L Total Protein (6.4-8.2) g/dL Albumin (3.4-5.0) g/dL Globulin (2.6-4.0) g/dL Albumin/Globulin Ratio (0.9-1.6) Lipase (73-393) U/L Urine Color YELLOW Urine Appearance CLEAR Urine pH 7.0 (5.0-8.0) Ur Specific [place] 1.010 (1.001-1.035) Urine Protein NEGATIVE (NEGATIVE) mg/dL Urine Glucose (UA) NEGATIVE (NEGATIVE) mg/dL Urine Ketones NEGATIVE (NEGATIVE) mg/dL Urine Occult Blood NEGATIVE (NEGATIVE) Urine Nitrite NEGATIVE (NEGATIVE) Urine Bilirubin NEGATIVE (NEGATIVE) Urine Urobilinogen 0.2 (<2.0) EU/dL Ur Leukocyte Esterase NEGATIVE (NEGATIVE) 12/26/18 Range/Units 05:25 WBC (4.0-11.0) K/uL RBC (4.30-5.90) M/uL Hgb (12.0-16.0) g/dL Hct (36.0-46.0) % MCV (80.0-98.0) fL MCH (27.0-32.0) pg MCHC (31.0-37.0) g/dL RDW Std Deviation (28.0-62.0) fl RDW Coeff of Mirian (11.0-15.0) % Plt Count (150-400) K/uL MPV (7.40-12.00) fL Neut % (Auto) (48.0-80.0) % Lymph % (Auto) (16.0-40.0) % [place] % (Auto) (0.0-15.0) % Eos % (Auto) (0.0-7.0) % Baso % (Auto) (0.0-1.5) % Neut # (Auto) (1.4-5.7) K/uL Lymph # (Auto) (0.6-2.4) K/uL [place] # (Auto) (0.0-0.8) K/uL Eos # (Auto) (0.0-0.7) K/uL Baso # (Auto) (0.0-0.1) K/uL Nucleated RBC % /100WBC Nucleated RBCs # K/uL Lactate (0.20-2.00) mmol/L Sodium 140 (136-145) mmol/L Potassium 4.5 (3.5-5.1) mmol/L Chloride 106 (98-107) mmol/L Carbon Dioxide 26.9 (21.0-32.0) mmol/L BUN 24 H (7.0-18.0) mg/dL Creatinine 1.7 H (0.6-1.0) mg/dL Est Cr Clr Drug Dosing 23.93 Estimated GFR (MDRD) 29.1 ml/min Glucose 93 (74-106) mg/dL POC Glucose (60-110) mg/dL Calcium 9.3 (8.5-10.1) mg/dL Total Bilirubin (0.2-1.0) mg/dL AST (15-37) IU/L ALT (14-63) IU/L Alkaline Phosphatase (46-116) U/L Total Protein (6.4-8.2) g/dL Albumin (3.4-5.0) g/dL Globulin (2.6-4.0) g/dL Albumin/Globulin Ratio (0.9-1.6) Lipase (73-393) U/L Urine Color Urine Appearance Urine pH (5.0-8.0) Ur Specific [place] (1.001-1.035) Urine Protein (NEGATIVE) mg/dL Urine Glucose (UA) (NEGATIVE) mg/dL Urine Ketones (NEGATIVE) mg/dL Urine Occult Blood (NEGATIVE) Urine Nitrite (NEGATIVE) Urine Bilirubin (NEGATIVE) Urine Urobilinogen (<2.0) EU/dL Ur Leukocyte Esterase (NEGATIVE) [place] Results Last 24 Hrs: Microbiology 12/25/18 11:40 Anaerobic Blood Culture - Final Blood - Venous - Lab Draw Med Orders - Current: Current Medications Acetaminophen (Tylenol) 650 mg PO Q4H PRN PRN Reason: Pain (Mild 1-3)/fever Citalopram Hydrobromide (Celexa) 40 mg PO DAILY [facility] Last Admin: 12/26/18 08:43 Dose: 40 mg Docusate Sodium (Colace) 100 mg PO BID PRN PRN Reason: Constipation Heparin Sodium (Porcine) (Heparin Sodium) 5,000 units SUBCUT Q8H [facility] Last Admin: 12/26/18 08:44 Dose: 5,000 units Sodium Chloride (Normal Saline) 1,000 mls @ 75 mls/hr IV STAT ONE Stop: 12/26/18 20:38 Last Admin: 12/26/18 07:41 Dose: 75 mls/hr Metoprolol Tartrate (Lopressor) 25 mg PO BID [facility] Last Admin: 12/26/18 08:44 Dose: Not Given Ondansetron HCl (Zofran Odt) 4 mg PO Q4H PRN PRN Reason: nausea, able to take PO Ondansetron HCl (Zofran) 4 mg IVPUSH Q4H PRN PRN Reason: Nausea Pantoprazole Sodium (Protonix) 40 mg PO DAILY [facility] Last Admin: 12/26/18 08:43 Dose: 40 mg Sodium Bicarbonate (Sodium Bicarbonate) 650 mg PO BID [facility] Last Admin: 12/26/18 08:43 Dose: 650 mg Discontinued Medications Sodium Chloride (Normal Saline) 1,000 mls @ 100 mls/hr IV BOLUS ONE Stop: 12/25/18 20:44 Last Admin: 12/25/18 11:25 Dose: 100 mls/hr Sodium Chloride (Normal Saline) 1,000 mls @ 75 mls/hr IV STAT ONE Stop: 12/26/18 06:50 Last Admin: 12/25/18 17:57 Dose: 75 mls/hr - Exam Lungs: Clear to Auscultation (no subcut crepitus) - Problem List Review Problem List Initiated/Reviewed/Updated: Yes - My Orders Last 24 Hours: Active Orders 24 hr Category Date Time Status Admission Status [Patient Status] [ADT] Stat ADT 12/25/18 13:12 Active Notify Provider Consults [RC] ASDIRECTED Care 12/25/18 16:58 Active Oxygen Therapy [RC] PRN Care 12/25/18 15:59 Active Up With Assistance [RC] ASDIRECTED Care 12/25/18 15:59 Active VTE/DVT Education [RC] PER UNIT ROUTINE Care 12/25/18 15:59 Active Vital Signs [RC] Q4H Care 12/25/18 15:59 Active Consult to Physician [CONS] Routine Cons 12/25/18 16:58 Active Regular Diet [DIET] Diet 12/25/18 Lunch Active Chest 1V Frontal [CR] Timed Exams 12/26/18 12:00 Ordered CULTURE BLOOD [BC] Stat Lab 12/25/18 11:19 Received CULTURE BLOOD [BC] Stat Lab 12/25/18 11:40 Results Acetaminophen [Tylenol] Med 12/25/18 15:59 Active 650 mg PO Q4H PRN Citalopram [Celexa] Med 12/26/18 09:00 Active 40 mg PO DAILY Docusate Sodium [Colace] Med 12/25/18 16:44 Active 100 mg PO BID PRN Heparin Sodium Med 12/25/18 16:00 Active 5,000 units SUBCUT Q8H Metoprolol Tartrate [Lopressor] Med 12/25/18 21:00 Active 25 mg PO BID Ondansetron [Zofran ODT] Med 12/25/18 15:59 Active 4 mg PO Q4H PRN Ondansetron [Zofran] Med 12/25/18 15:59 Active 4 mg IVPUSH Q4H PRN Pantoprazole [ProTONIX] Med 12/26/18 09:00 Active 40 mg PO DAILY Sodium Bicarbonate Med 12/25/18 21:00 Active 650 mg PO BID Sodium Chloride 0.9% [Normal Saline] 1,000 ml Med 12/26/18 07:19 Active IV STAT Blood Culture x2 Reflex Set [OM.PC] Stat Oth 12/25/18 10:46 Ordered Resuscitation Status Routine Resus Stat 12/25/18 15:59 Ordered Medication Orders Acetaminophen (Tylenol) 650 mg PO Q4H PRN PRN Reason: Pain (Mild 1-3)/fever Citalopram Hydrobromide (Celexa) 40 mg PO DAILY [facility] Last Admin: 12/26/18 08:43 Dose: 40 mg Docusate Sodium (Colace) 100 mg PO BID PRN PRN Reason: Constipation Heparin Sodium (Porcine) (Heparin Sodium) 5,000 units SUBCUT Q8H [facility] Last Admin: 12/26/18 08:44 Dose: 5,000 units Admin: 12/25/18 23:07 Dose: 5,000 units Admin: 12/25/18 17:22 Dose: 5,000 units Sodium Chloride (Normal Saline) 1,000 mls @ 75 mls/hr IV STAT ONE Stop: 12/26/18 20:38 Last Admin: 12/26/18 07:41 Dose: 75 mls/hr Metoprolol Tartrate (Lopressor) 25 mg PO BID [facility] Last Admin: 12/26/18 08:44 Dose: Admin: 12/25/18 20:02 Dose: 25 mg Ondansetron HCl (Zofran Odt) 4 mg PO Q4H PRN PRN Reason: nausea, able to take PO Ondansetron HCl (Zofran) 4 mg IVPUSH Q4H PRN PRN Reason: Nausea Pantoprazole Sodium (Protonix) 40 mg PO DAILY [facility] Last Admin: 12/26/18 08:43 Dose: 40 mg Sodium Bicarbonate (Sodium Bicarbonate) 650 mg PO BID [facility] Last Admin: 12/26/18 08:43 Dose: 650 mg Admin: 12/25/18 20:02 Dose: 650 mg - Assessment Assessment (Free Text/Narrative):: doing well, small apical ptx stable X 24 hrs, would double check w discharge summary from outside facility; no chesttube planned at this stage; ok to dc home ; and fu appointment w original surgeon in [place] in 1 - 2 wks; thanks for the consult and care of this [facility] patient - Plan Plan (Free Text/Narrative):: doing well, small apical ptx stable X 24 hrs, would double check w discharge summary from outside facility; no chesttube planned at this stage; ok to dc home ; and fu appointment w original surgeon in [place] in 1 - 2 wks; thanks for the consult and care of this nice patient
--- NOTE | 2018-12-26 10:41 | PCM.DCSUM1 ---
<Oleksandr Romero - Last Filed: 12/26/18 14:50> Discharge Summary - Hospital Course Free Text/Narrative:: 78-year-old female presented to [facility] for evaluation after being told by her employers that she has been confused and fatigued lately. Patient herself denied any complaints and states that she is in her normal state of health. Patient has a PMH of colon cancer s/p hemicolectomy. She also recently had a port placed in her right chest on 12/22/18 for chemotherapy which she reports will start treatment on 12/29/18. On admission, CT head and UA were negative. Blood cultures obtained were negative at 24 hours. A CXR did reveal a 20% right hydropneumothorax. Patient was asymptomatic and denied having any shortness of breath. On physical exam, there were decreased breath sounds appreciated in the right upper lung, no tracheal deviation and no crepitus. General surgeon Dr. Pittman was consulted and recommended no chest tube at this time, keeping patient on high-flow oxygen and to get serial chest x-rays to see if the hydropneumothorax is stable. CXR's were ordered q6h x3 and hydropneumothorax was reported to be stable. Port placement operative note from [facility] in [place] was obtained and indicates that there was no pneumothorax present after port placement on 12/22/18. Patient's vital signs remained stable and afebrile throughout hospitalization. Patient is AOx4. She was discharged in stable condition with instructions to follow-up with general surgeon Dr. Bangura in 1-2 weeks and her PCP. - Discharge Data Discharge Date: 12/26/18 Discharge Disposition: Home, Self-Care 01 Condition: Stable - Patient Summary/Data Consults: Consultations 12/25/18 16:58 Consult to Physician [CONS] Routine - Patient Instructions Diet: Regular Diet as Tolerated Activity: As Tolerated Notify Provider of: Fever, Increased Pain, Swelling and Redness, Drainage, Nausea and/or Vomiting - Discharge Plan *PRESCRIPTION DRUG MONITORING PROGRAM REVIEWED*: Not Applicable *COPY OF PRESCRIPTION DRUG MONITORING REPORT IN PATIENT CHRIS: Not Applicable Home Medications: Home Meds Citalopram [Citalopram HBr] 40 mg PO DAILY 12/25/18 [History] Docusate Sodium [Dok] 100 mg PO BID PRN 12/25/18 [History] Metoprolol Tartrate 25 mg PO BID 12/25/18 [History] Ondansetron [Zofran ODT] 4 mg PO ASDIRECTED PRN 12/25/18 [History] Pantoprazole [ProTONIX] 40 mg PO DAILY 12/25/18 [History] Sodium Bicarbonate 650 mg PO BID 12/25/18 [History] Vit B Cmplx 3/Fa/Vit C/Biotin [[employer] Agent-David Rx Tablet] 1 tab PO DAILY 12/25/18 [ History] Patient Handouts: Pneumothorax Referrals: Neftali Wilson MD [Primary Care Provider] - 01/15/19 11:30 am - Discharge Summary/Plan Comment DC Time >30 min.: No - Patient Data Vitals - Most Recent: Last Vital Signs Temp 97.1 F 12/26/18 08:00 Pulse 52 L 12/26/18 08:00 Resp 18 12/26/18 08:00 BP 138/65 12/26/18 08:00 Pulse Ox 97 12/26/18 08:00 Weight - Most Recent: 59.421 kg I&O - Last 24 hours: Intake & Output 12/25/18 12/26/18 12/26/18 22:59 06:59 14:59 Intake Total 1422 Output Total 1025 Balance 397 Lab Results - Last 24 hrs: Laboratory Results - last 24 hr 12/25/18 12/25/18 12/25/18 Range/Units 10:18 11:10 11:10 WBC 5.89 (4.0-11.0) K/uL RBC 3.50 L (4.30-5.90) M/uL Hgb 10.5 L (12.0-16.0) g/dL Hct 32.5 L (36.0-46.0) % MCV 92.9 (80.0-98.0) fL MCH 30.0 (27.0-32.0) pg MCHC 32.3 (31.0-37.0) g/dL RDW Std Deviation 48.3 (28.0-62.0) fl RDW Coeff of Mirian 14 (11.0-15.0) % Plt Count 306 (150-400) K/uL MPV 9.60 (7.40-12.00) fL Neut % (Auto) 78.3 (48.0-80.0) % Lymph % (Auto) 11.7 L (16.0-40.0) % [place] % (Auto) 7.1 (0.0-15.0) % Eos % (Auto) 2.2 (0.0-7.0) % Baso % (Auto) 0.7 (0.0-1.5) % Neut # (Auto) 4.6 (1.4-5.7) K/uL Lymph # (Auto) 0.7 (0.6-2.4) K/uL [place] # (Auto) 0.4 (0.0-0.8) K/uL Eos # (Auto) 0.1 (0.0-0.7) K/uL Baso # (Auto) 0.0 (0.0-0.1) K/uL Nucleated RBC % 0.0 /100WBC Nucleated RBCs # 0 K/uL Lactate (0.20-2.00) mmol/L Sodium 139 (136-145) mmol/L Potassium 4.8 (3.5-5.1) mmol/L Chloride 103 (98-107) mmol/L Carbon Dioxide 25.3 (21.0-32.0) mmol/L BUN 28 H (7.0-18.0) mg/dL Creatinine 1.9 H (0.6-1.0) mg/dL Est Cr Clr Drug Dosing TNP Estimated GFR (MDRD) 25.6 ml/min Glucose 118 H (74-106) mg/dL POC Glucose 120 H (60-110) mg/dL Calcium 10.2 H (8.5-10.1) mg/dL Total Bilirubin 0.5 (0.2-1.0) mg/dL AST 17 (15-37) IU/L ALT 12 L (14-63) IU/L Alkaline Phosphatase 114 (46-116) U/L Total Protein 7.8 (6.4-8.2) g/dL Albumin 3.2 L (3.4-5.0) g/dL Globulin 4.6 H (2.6-4.0) g/dL Albumin/Globulin Ratio 0.7 L (0.9-1.6) Lipase 57 L (73-393) U/L Urine Color Urine Appearance Urine pH (5.0-8.0) Ur Specific [place] (1.001-1.035) Urine Protein (NEGATIVE) mg/dL Urine Glucose (UA) (NEGATIVE) mg/dL Urine Ketones (NEGATIVE) mg/dL Urine Occult Blood (NEGATIVE) Urine Nitrite (NEGATIVE) Urine Bilirubin (NEGATIVE) Urine Urobilinogen (<2.0) EU/dL Ur Leukocyte Esterase (NEGATIVE) 12/25/18 12/25/18 12/26/18 Range/Units 11:10 11:20 05:25 WBC 5.52 (4.0-11.0) K/uL RBC 3.17 L (4.30-5.90) M/uL Hgb 9.3 L (12.0-16.0) g/dL Hct 30.0 L (36.0-46.0) % MCV 94.6 (80.0-98.0) fL MCH 29.3 (27.0-32.0) pg MCHC 31.0 (31.0-37.0) g/dL RDW Std Deviation 49.1 (28.0-62.0) fl RDW Coeff of Mirian 14 (11.0-15.0) % Plt Count 413 H (150-400) K/uL MPV 9.50 (7.40-12.00) fL Neut % (Auto) 61.4 (48.0-80.0) % Lymph % (Auto) 20.8 (16.0-40.0) % [place] % (Auto) 8.7 (0.0-15.0) % Eos % (Auto) 8.0 H (0.0-7.0) % Baso % (Auto) 1.1 (0.0-1.5) % Neut # (Auto) 3.4 (1.4-5.7) K/uL Lymph # (Auto) 1.2 (0.6-2.4) K/uL Dare # (Auto) 0.5 (0.0-0.8) K/uL Eos # (Auto) 0.4 (0.0-0.7) K/uL Baso # (Auto) 0.1 (0.0-0.1) K/uL Nucleated RBC % 0.0 /100WBC Nucleated RBCs # 0 K/uL Lactate 1.2 (0.20-2.00) mmol/L Sodium (136-145) mmol/L Potassium (3.5-5.1) mmol/L Chloride (98-107) mmol/L Carbon Dioxide (21.0-32.0) mmol/L BUN (7.0-18.0) mg/dL Creatinine (0.6-1.0) mg/dL Est Cr Clr Drug Dosing Estimated GFR (MDRD) ml/min Glucose (74-106) mg/dL POC Glucose (60-110) mg/dL Calcium (8.5-10.1) mg/dL Total Bilirubin (0.2-1.0) mg/dL AST (15-37) IU/L ALT (14-63) IU/L Alkaline Phosphatase (46-116) U/L Total Protein (6.4-8.2) g/dL Albumin (3.4-5.0) g/dL Globulin (2.6-4.0) g/dL Albumin/Globulin Ratio (0.9-1.6) Lipase (73-393) U/L Urine Color YELLOW Urine Appearance CLEAR Urine pH 7.0 (5.0-8.0) Ur Specific [place] 1.010 (1.001-1.035) Urine Protein NEGATIVE (NEGATIVE) mg/dL Urine Glucose (UA) NEGATIVE (NEGATIVE) mg/dL Urine Ketones NEGATIVE (NEGATIVE) mg/dL Urine Occult Blood NEGATIVE (NEGATIVE) Urine Nitrite NEGATIVE (NEGATIVE) Urine Bilirubin NEGATIVE (NEGATIVE) Urine Urobilinogen 0.2 (<2.0) EU/dL Ur Leukocyte Esterase NEGATIVE (NEGATIVE) 12/26/18 Range/Units 05:25 WBC (4.0-11.0) K/uL RBC (4.30-5.90) M/uL Hgb (12.0-16.0) g/dL Hct (36.0-46.0) % MCV (80.0-98.0) fL MCH (27.0-32.0) pg MCHC (31.0-37.0) g/dL RDW Std Deviation (28.0-62.0) fl RDW Coeff of Mirian (11.0-15.0) % Plt Count (150-400) K/uL MPV (7.40-12.00) fL Neut % (Auto) (48.0-80.0) % Lymph % (Auto) (16.0-40.0) % Dare % (Auto) (0.0-15.0) % Eos % (Auto) (0.0-7.0) % Baso % (Auto) (0.0-1.5) % Neut # (Auto) (1.4-5.7) K/uL Lymph # (Auto) (0.6-2.4) K/uL Dare # (Auto) (0.0-0.8) K/uL Eos # (Auto) (0.0-0.7) K/uL Baso # (Auto) (0.0-0.1) K/uL Nucleated RBC % /100WBC Nucleated RBCs # K/uL Lactate (0.20-2.00) mmol/L Sodium 140 (136-145) mmol/L Potassium 4.5 (3.5-5.1) mmol/L Chloride 106 (98-107) mmol/L Carbon Dioxide 26.9 (21.0-32.0) mmol/L BUN 24 H (7.0-18.0) mg/dL Creatinine 1.7 H (0.6-1.0) mg/dL Est Cr Clr Drug Dosing 23.93 Estimated GFR (MDRD) 29.1 ml/min Glucose 93 (74-106) mg/dL POC Glucose (60-110) mg/dL Calcium 9.3 (8.5-10.1) mg/dL Total Bilirubin (0.2-1.0) mg/dL AST (15-37) IU/L ALT (14-63) IU/L Alkaline Phosphatase (46-116) U/L Total Protein (6.4-8.2) g/dL Albumin (3.4-5.0) g/dL Globulin (2.6-4.0) g/dL Albumin/Globulin Ratio (0.9-1.6) Lipase (73-393) U/L Urine Color Urine Appearance Urine pH (5.0-8.0) Ur Specific [place] (1.001-1.035) Urine Protein (NEGATIVE) mg/dL Urine Glucose (UA) (NEGATIVE) mg/dL Urine Ketones (NEGATIVE) mg/dL Urine Occult Blood (NEGATIVE) Urine Nitrite (NEGATIVE) Urine Bilirubin (NEGATIVE) Urine Urobilinogen (<2.0) EU/dL Ur Leukocyte Esterase (NEGATIVE) REJI Results - Last 24 hrs: Microbiology 12/25/18 11:40 Anaerobic Blood Culture - Final Blood - Venous - Lab Draw Med Orders - Current: Current Medications Acetaminophen (Tylenol) 650 mg PO Q4H PRN PRN Reason: Pain (Mild 1-3)/fever Citalopram Hydrobromide (Celexa) 40 mg PO DAILY [facility] Last Admin: 12/26/18 08:43 Dose: 40 mg Docusate Sodium (Colace) 100 mg PO BID PRN PRN Reason: Constipation Heparin Sodium (Porcine) (Heparin Sodium) 5,000 units SUBCUT Q8H [facility] Last Admin: 12/26/18 08:44 Dose: 5,000 units Sodium Chloride (Normal Saline) 1,000 mls @ 75 mls/hr IV STAT ONE Stop: 12/26/18 20:38 Last Admin: 12/26/18 07:41 Dose: 75 mls/hr Metoprolol Tartrate (Lopressor) 25 mg PO BID [facility] Last Admin: 12/26/18 08:44 Dose: Not Given Ondansetron HCl (Zofran Odt) 4 mg PO Q4H PRN PRN Reason: nausea, able to take PO Ondansetron HCl (Zofran) 4 mg IVPUSH Q4H PRN PRN Reason: Nausea Pantoprazole Sodium (Protonix) 40 mg PO DAILY [facility] Last Admin: 12/26/18 08:43 Dose: 40 mg Sodium Bicarbonate (Sodium Bicarbonate) 650 mg PO BID [facility] Last Admin: 12/26/18 08:43 Dose: 650 mg Discontinued Medications Sodium Chloride (Normal Saline) 1,000 mls @ 100 mls/hr IV BOLUS ONE Stop: 12/25/18 20:44 Last Admin: 12/25/18 11:25 Dose: 100 mls/hr Sodium Chloride (Normal Saline) 1,000 mls @ 75 mls/hr IV STAT ONE Stop: 12/26/18 06:50 Last Admin: 12/25/18 17:57 Dose: 75 mls/hr <Anibal Gaston - Last Filed: 12/26/18 17:40> Discharge Summary - Hospital Course Free Text/Narrative:: I have examined the patient independently of medical support assistant, Dr. Nick MD. I have discussed the case with him. I have reviewed and agree with the examination and plan as outlined by him. Please see orders. - Patient Summary/Data Consults: Consultations 12/25/18 16:58 Consult to Physician [CONS] Routine - Patient Data Vitals - Most Recent: Last Vital Signs Temp 36.2 C 12/26/18 11:54 Pulse 54 L 12/26/18 11:54 Resp 20 12/26/18 11:54 BP 143/54 H 12/26/18 11:54 Pulse Ox 94 L 12/26/18 14:20 I&O - Last 24 hours: Intake & Output 12/26/18 12/26/18 12/26/18 06:59 14:59 22:59 Intake Total 1422 1107 Output Total 1025 500 Balance 397 607 Lab Results - Last 24 hrs: Laboratory Results - last 24 hr 12/26/18 12/26/18 Range/Units 05:25 05:25 WBC 5.52 (4.0-11.0) K/uL RBC 3.17 L (4.30-5.90) M/uL Hgb 9.3 L (12.0-16.0) g/dL Hct 30.0 L (36.0-46.0) % MCV 94.6 (80.0-98.0) fL MCH 29.3 (27.0-32.0) pg MCHC 31.0 (31.0-37.0) g/dL RDW Std Deviation 49.1 (28.0-62.0) fl RDW Coeff of Mirian 14 (11.0-15.0) % Plt Count 413 H (150-400) K/uL MPV 9.50 (7.40-12.00) fL Neut % (Auto) 61.4 (48.0-80.0) % Lymph % (Auto) 20.8 (16.0-40.0) % Dare % (Auto) 8.7 (0.0-15.0) % Eos % (Auto) 8.0 H (0.0-7.0) % Baso % (Auto) 1.1 (0.0-1.5) % Neut # (Auto) 3.4 (1.4-5.7) K/uL Lymph # (Auto) 1.2 (0.6-2.4) K/uL Dare # (Auto) 0.5 (0.0-0.8) K/uL Eos # (Auto) 0.4 (0.0-0.7) K/uL Baso # (Auto) 0.1 (0.0-0.1) K/uL Nucleated RBC % 0.0 /100WBC Nucleated RBCs # 0 K/uL Sodium 140 (136-145) mmol/L Potassium 4.5 (3.5-5.1) mmol/L Chloride 106 (98-107) mmol/L Carbon Dioxide 26.9 (21.0-32.0) mmol/L BUN 24 H (7.0-18.0) mg/dL Creatinine 1.7 H (0.6-1.0) mg/dL Est Cr Clr Drug Dosing 23.93 mL/min Estimated GFR (MDRD) 29.1 ml/min Glucose 93 (74-106) mg/dL Calcium 9.3 (8.5-10.1) mg/dL REJI Results - Last 24 hrs: Microbiology 12/25/18 11:40 Aerobic Blood Culture - Preliminary Blood - Venous - Lab Draw NO GROWTH AFTER 1 DAY Anaerobic Blood Culture - Final 12/25/18 11:19 Aerobic Blood Culture - Preliminary Blood - Venous NO GROWTH AFTER 1 DAY Anaerobic Blood Culture - Preliminary NO GROWTH AFTER 1 DAY Med Orders - Current: Current Medications Discontinued Medications Acetaminophen (Tylenol) 650 mg PO Q4H PRN PRN Reason: Pain (Mild 1-3)/fever Citalopram Hydrobromide (Celexa) 40 mg PO DAILY [facility] Last Admin: 12/26/18 08:43 Dose: 40 mg Docusate Sodium (Colace) 100 mg PO BID PRN PRN Reason: Constipation Heparin Sodium (Porcine) (Heparin Sodium) 5,000 units SUBCUT Q8H [facility] Last Admin: 12/26/18 08:44 Dose: 5,000 units Sodium Chloride (Normal Saline) 1,000 mls @ 100 mls/hr IV BOLUS ONE Stop: 12/25/18 20:44 Last Admin: 12/25/18 11:25 Dose: 100 mls/hr Sodium Chloride (Normal Saline) 1,000 mls @ 75 mls/hr IV STAT ONE Stop: 12/26/18 06:50 Last Admin: 12/25/18 17:57 Dose: 75 mls/hr Sodium Chloride (Normal Saline) 1,000 mls @ 75 mls/hr IV STAT ONE Stop: 12/26/18 20:38 Last Admin: 12/26/18 07:41 Dose: 75 mls/hr Metoprolol Tartrate (Lopressor) 25 mg PO BID [facility] Last Admin: 12/26/18 08:44 Dose: Not Given Ondansetron HCl (Zofran Odt) 4 mg PO Q4H PRN PRN Reason: nausea, able to take PO Ondansetron HCl (Zofran) 4 mg IVPUSH Q4H PRN PRN Reason: Nausea Pantoprazole Sodium (Protonix) 40 mg PO DAILY [facility] Last Admin: 12/26/18 08:43 Dose: 40 mg Sodium Bicarbonate (Sodium Bicarbonate) 650 mg PO BID [facility] Last Admin: 12/26/18 08:43 Dose: 650 mg
--- NOTE | 2018-12-26 13:21 | CR ---
HISTORY: Follow up right pneumothorax. COMPARISON: From earlier today at 0603 hours and yesterday at 1035 hours FINDINGS: A portable erect AP view of the chest was obtained at 12 13 hours. There has been no change in the 20 percent right pneumothorax, with the air now collected primarily in the apex. The previously seen lateral component on the study from yesterday is no longer present. Incidental note is made of a soft tissue line along the right lateral mid and lower chest. This does not appear to be a pneumothorax. There is no change in moderate consolidation of the medial left lower lobe along with a mild left pleural effusion with patchy consolidation of the rest of the left lung base. There may be an underlying left lower lobe pneumonia. The rest of the chest remains clear. Again seen is a right subclavian central line with its tip in satisfactory position in the superior vena cava at the cavoatrial junction. The heart remains top normal in size. The mediastinum is normal in appearance. The osseous structures are normal in appearance for the patient`s age. IMPRESSION: Stable 20 percent right apical pneumothorax. Stable mild left pleural effusion with moderate consolidation of the medial left lower lobe suggestive of a left lower lobe pneumonia. Dictated by Yung Bond MD @ Dec 26 2018 1:12PM Signed by Dr. Yung Bond @ Dec 26 2018 1:21PM
== END 2018-12-26 14:25 | disposition home or self-care (01) ==
LOC: MW.ED 10:05 → MW.OB 13:20 → MW.ICU 14:15 → MW.MS 12-26 07:35
PROVIDERS: ADMIT Internal Medicine; ATTEND Internal Medicine
DX: J94.8 Other specified pleural conditions (principal); N17.9 Acute kidney failure, unspecified; C18.9 Malignant neoplasm of colon, unspecified; I10 Essential (primary) hypertension; Z90.49 Acquired absence of other specified parts of digestive tract; Z79.899 Other long term (current) drug therapy; Z88.2 Allergy status to sulfonamides
CPT/HCPCS: 36415; 70450; 71045; 71046; 80048; 80053; 81003; 82962; 83605; 83690; 85025; 87040; 93005; 96360; 96361; 96372; 99285; A9270; G0378; J1644; J7040

== ENCOUNTER 2019-05-07 18:37 | Observation (INO) | payer MEDICARE, BC ==
[2019-05-07] MEDS ORDERED: Sodium Chloride 0.9% 10 ML Syringe FLUSH PRN ×2 (18:39→21:39)
[2019-05-07] MEDS ORDERED: Sodium Chloride 0.9% 2.5 ML Syringe FLUSH PRN ×2 (18:39→21:39)
[2019-05-07 19:32] LABS: CARBON DIOXIDE,CO2 19.1 mmol/L (21.0-32.0); POTASSIUM,K 3.7 mmol/L (3.5-5.1)
--- NOTE | 2019-05-07 19:42 | EDM.PDOC ---
ED HPI GENERAL MEDICAL PROBLEM - General Chief Complaint: General Stated Complaint: pt states she needs blood transfusion Time Seen by Provider: 05/07/19 19:30 Source of Information: Reports: Patient History Limitations: Reports: No Limitations - History of Present Illness INITIAL COMMENTS - FREE TEXT/NARRATIVE: 79-year-old female presents to the emergency room stating that she needs a blood transfusion. Patient was sent from her urologist after feeling tired and weak. Patient is a cancer survivor and is no longer on chemo. Patient denies chills and fever but says she is weak and short of breath. Onset: Gradual Duration: Week(s):, Getting Worse Location: Reports: Generalized Severity: Mild Improves with: Reports: None Worsens with: Reports: None Associated Symptoms: Reports: Shortness of Breath, Weakness - Related Data Allergies Allergy/AdvReac Type Severity Reaction Status Date / Time Sulfa (Sulfonamide Allergy Mild Hives Verified 05/07/19 18:44 Antibiotics) sulfamethoxazole Allergy Mild Hives Verified 05/07/19 18:44 [From Bactrim] trimethoprim [From Bactrim] Allergy Mild Hives Verified 05/07/19 18:44 Home Meds: Home Meds Citalopram [Citalopram HBr] 40 mg PO DAILY 12/25/18 [History] Docusate Sodium [Dok] 100 mg PO BID PRN 12/25/18 [History] Metoprolol Tartrate 25 mg PO BID 12/25/18 [History] Ondansetron [Zofran ODT] 4 mg PO ASDIRECTED PRN 12/25/18 [History] Pantoprazole [ProTONIX] 40 mg PO DAILY 12/25/18 [History] Sodium Bicarbonate 650 mg PO BID 12/25/18 [History] Vit B Cmplx 3/Fa/Vit C/Biotin [[employer] Rx Tablet] 1 tab PO DAILY 12/25/18 [ History] Past Medical History - Past Health History Medical/Surgical History: Denies Medical/Surgical History HEENT History: Reports: Cataract, Impaired Vision, Other (See Below) Other HEENT History: Wears glasses. Cardiovascular History: Reports: Hypertension Other RANGE AID History: Hysterectomy. Oncologic (Cancer) History: Reports: Colon - Infectious Disease History Infectious Disease History: Reports: Chicken Pox - Past Surgical History GI Surgical History: Reports: Colonoscopy, Other (See Below) Other GI Surgeries/Procedures: Colon Resection. Social & Family History - Family History Family Medical History: Noncontributory - Tobacco Use Smoking Status *Q: Never Smoker Second Hand Smoke Exposure: No - Caffeine Use Caffeine Use: Reports: None - Recreational Drug Use Recreational Drug Use: No ED ROS GENERAL - Review of Systems Review Of Systems: Comprehensive ROS is negative, except as noted in HPI. Constitutional: Reports: Weakness HEENT: Reports: No Symptoms Respiratory: Reports: Shortness of Breath Cardiovascular: Reports: No Symptoms Endocrine: Reports: No Symptoms GI/Abdominal: Reports: No Symptoms : Reports: No Symptoms Musculoskeletal: Reports: No Symptoms Skin: Reports: No Symptoms Neurological: Reports: No Symptoms Psychiatric: Reports: No Symptoms Hematologic/Lymphatic: Reports: No Symptoms Immunologic: Reports: No Symptoms ED EXAM, GENERAL - Physical Exam Exam: See Below Free Text/Narrative:: 79-year-old female physical exam Patient's HEENT is normal Chest: Noncontributory S1-S2 Lungs: Lungs are clear bilaterally no rales rhonchi or wheezes Abdomen :soft nontender Extremities are normal Exam Limited By: No Limitations General Appearance: Alert, WD/WN, No Apparent Distress Eye Exam: Bilateral Eye: PERRL Ears: Normal External Exam, Normal Canal, Hearing Grossly Normal, Normal TMs Nose: Normal Inspection, Normal Mucosa Throat/Mouth: Normal Inspection, Normal Lips Head: Atraumatic, Normocephalic Respiratory/Chest: No Respiratory Distress, Lungs Clear, Normal Breath Sounds, No Accessory Muscle Use Cardiovascular: Normal Peripheral Pulses Extremities: Normal Inspection, Normal Range of Motion, No Pedal Edema, Normal Capillary Refill Neurological: Alert, Oriented, CN II-XII Intact Psychiatric: Normal Affect, Normal Mood Skin Exam: Warm, Dry, Intact, Normal Color Course - Vital Signs Text/Narrative:: 79-year-old female who presents to the emergency room with weakness. Was found to have a hemoglobin of 7.5 and a UTI. Patient was symptomatic with her anemia and she has been admitted to the hospital for transfusion and treatment of her urinary tract infection. I discussed the case with Dr. Anderson he agrees with the treatment. Patient is in no distress and is stable for transfer to observation. Last Recorded V/S: Last Vital Signs Temp 100.7 F H 05/07/19 20:04 Pulse 73 05/07/19 20:04 Resp 18 05/07/19 20:04 BP 110/54 L 05/07/19 20:04 Pulse Ox 96 05/07/19 20:04 - Orders/Labs/Meds Orders: Active Orders 24 hr Category Date Time Status Admission Status [Patient Status] [ADT] Stat ADT 05/07/19 20:13 Active EKG Documentation Completion [RC] STAT Care 05/07/19 18:39 Active CBC WITH AUTO DIFF [HEME] Stat Lab 05/07/19 18:56 Received CULTURE BLOOD [BC] Stat Lab 05/07/19 20:09 Ordered CULTURE BLOOD [BC] Stat Lab 05/07/19 20:09 Ordered CULTURE BLOOD [BC] Stat Lab 05/07/19 20:10 Ordered CULTURE BLOOD [BC] Stat Lab 05/07/19 20:10 Ordered CULTURE URINE [RM] Stat Lab 05/07/19 19:00 Received RED BLOOD CELLS LP [BBK] Stat Lab 05/07/19 20:12 Ordered TYPE AND SCREEN [BBK] Stat Lab 05/07/19 18:56 Received Sodium Chloride 0.9% [Saline Flush] Med 05/07/19 18:39 Active 10 ml FLUSH ASDIRECTED PRN Sodium Chloride 0.9% [Saline Flush] Med 05/07/19 18:39 Active 2.5 ml FLUSH ASDIRECTED PRN Blood Culture x2 Reflex Set [OM.PC] Stat Oth 05/07/19 20:09 Ordered Blood Culture x2 Reflex Set [OM.PC] Stat Oth 05/07/19 20:09 Ordered Saline Lock Insert [OM.PC] Stat Oth 05/07/19 18:39 Ordered Transfuse Red Blood Cells [COMM] Stat Oth 05/07/19 20:12 Ordered Medication Orders Sodium Chloride (Saline Flush) 10 ml FLUSH ASDIRECTED PRN PRN Reason: Keep Vein Open Sodium Chloride (Saline Flush) 2.5 ml FLUSH ASDIRECTED PRN PRN Reason: Keep Vein Open Labs: Laboratory Tests 05/07/19 05/07/19 05/07/19 Range/Units 18:56 18:56 19:00 WBC 3.40 L (4.0-11.0) K/uL RBC 2.40 L (4.30-5.90) M/uL Hgb 7.5 L (12.0-16.0) g/dL Hct 24.0 L (36.0-46.0) % MCV 100.0 H (80.0-98.0) fL MCH 31.3 (27.0-32.0) pg MCHC 31.3 (31.0-37.0) g/dL RDW Std Deviation 74.5 H (28.0-62.0) fl RDW Coeff of Mirian 20 H (11.0-15.0) % Plt Count 174 (150-400) K/uL MPV 10.50 (7.40-12.00) fL Add Manual Diff YES Neutrophils % (Manual) 58 (48.0-80.0) % Lymphocytes % (Manual) 19 (16.0-40.0) % Monocytes % (Manual) 22 H (0.0-15.0) % Basophils % (Manual) 1 (0.0-1.5) % Nucleated RBC % 0.0 /100WBC Absolute Seg Neuts 2.0 (1.4-5.7) Lymphocytes # (Manual) 0.6 (0.6-2.4) Monocytes # (Manual) 0.7 (0.0-0.8) Basophils # (Manual) 0.0 (0.0-0.1) Nucleated RBCs # 0 K/uL Poikilocytosis 1+ SLIGHT Sodium 138 (136-145) mmol/L Potassium 3.7 (3.5-5.1) mmol/L Chloride 108 H (98-107) mmol/L Carbon Dioxide 19.1 L (21.0-32.0) mmol/L BUN 29 H (7.0-18.0) mg/dL Creatinine 1.7 H (0.6-1.0) mg/dL Est Cr Clr Drug Dosing 23.55 mL/min Estimated GFR (MDRD) 29.1 ml/min Glucose 100 (74-106) mg/dL Calcium 7.6 L (8.5-10.1) mg/dL Total Bilirubin 0.2 (0.2-1.0) mg/dL AST 32 (15-37) IU/L ALT 21 (14-63) IU/L Alkaline Phosphatase 147 H (46-116) U/L Total Protein 5.3 L (6.4-8.2) g/dL Albumin 2.1 L (3.4-5.0) g/dL Globulin 3.2 (2.6-4.0) g/dL Albumin/Globulin Ratio 0.7 L (0.9-1.6) Urine Color YELLOW Urine Appearance HAZY Urine pH 6.0 (5.0-8.0) Ur Specific [place] 1.020 (1.001-1.035) Urine Protein 30 H (NEGATIVE) mg/dL Urine Glucose (UA) NEGATIVE (NEGATIVE) mg/dL Urine Ketones NEGATIVE (NEGATIVE) mg/dL Urine Occult Blood SMALL H (NEGATIVE) Urine Nitrite POSITIVE H (NEGATIVE) Urine Bilirubin NEGATIVE (NEGATIVE) Urine Urobilinogen 0.2 (<2.0) EU/dL Ur Leukocyte Esterase SMALL H (NEGATIVE) Urine RBC 2-5 (0-2/HPF) Urine WBC 10-20 (0-5/HPF) Ur Epithelial Cells FEW (NONE-FEW) Urine Bacteria 3+ H (NEGATIVE) Meds: Medications Generic Name Dose Route Start Last Admin Trade Name Freq PRN Reason Stop Dose Admin Sodium Chloride 10 ml 05/07/19 18:39 Saline Flush FLUSH ASDIRECTED PRN Keep Vein Open Sodium Chloride 2.5 ml 05/07/19 18:39 Saline Flush FLUSH ASDIRECTED PRN Keep Vein Open Discontinued Medications Generic Name Dose Route Start Last Admin Trade Name Freq PRN Reason Stop Dose Admin Cefazolin Sodium/Dextrose 1 gm 50 mls @ 100 mls/hr 05/07/19 20:05 05/07/19 20 :37 / Premix IV 05/07/19 20:34 100 mls/hr ONETIME ONE Administration Departure - Departure Time of Disposition: 20:51 Disposition: Refer to Observation Condition: Good Clinical Impression: UTI (urinary tract infection) Anemia Qualifiers: Anemia type: unspecified type Qualified Code(s): D64.9 - Anemia, unspecified - Discharge Information Sepsis Event Note - Evaluation Sepsis Screening Result: No Definite Risk - Focused Exam Vital Signs: Vital Signs Temp Pulse Resp BP Pulse Ox 05/07/19 20:04 100.7 F H 73 18 110/54 L 96 05/07/19 18:44 98.1 F 92 16 143/70 H 97 Date Exam was Performed: 05/07/19 Time Exam was Performed: 20:44 - My Orders Last 24 Hours: My Active Orders 05/07/19 20:09 CULTURE BLOOD [BC] Stat CULTURE BLOOD [BC] Stat Blood Culture x2 Reflex Set [OM.PC] Stat Blood Culture x2 Reflex Set [OM.PC] Stat 05/07/19 20:10 CULTURE BLOOD [BC] Stat CULTURE BLOOD [BC] Stat 05/07/19 20:12 RED BLOOD CELLS LP [BBK] Stat Transfuse Red Blood Cells [COMM] Stat - Assessment/Plan Last 24 Hours: My Active Orders 05/07/19 20:09 CULTURE BLOOD [BC] Stat CULTURE BLOOD [BC] Stat Blood Culture x2 Reflex Set [OM.PC] Stat Blood Culture x2 Reflex Set [OM.PC] Stat 05/07/19 20:10 CULTURE BLOOD [BC] Stat CULTURE BLOOD [BC] Stat 05/07/19 20:12 RED BLOOD CELLS LP [BBK] Stat Transfuse Red Blood Cells [COMM] Stat
--- NOTE | 2019-05-07 19:47 | CR ---
HISTORY: Shortness of breath COMPARISON: 12/26/2018 FINDINGS: A portable erect AP view of the chest was obtained at 19 00 hours. During the interval, the right apical pneumothorax has resolved. There is new mild blunting of the right costophrenic angle consistent with a new small right pleural effusion. The previously seen moderate consolidation of the left lower lobe and mild left pleural effusion have resolved. There is moderate density located along the left lateral lung base, blunting the left costophrenic angle. This could be residual effusion or scarring from previous inflammatory disease. Overall, this is improved compared to the previous study. The rest of the chest remains clear. Again seen is a right subclavian infusion port with its tip in satisfactory position in the superior vena cava at the cavoatrial junction. There is no sign of pneumothorax on the right. The heart remains normal in size. The mediastinum is normal in appearance. The osseous structures are normal in appearance for the patient`s age. IMPRESSION: Moderate pleural density located along the lateral lower left chest, blunting the left costophrenic angle, scarring versus loculated effusion. This is improved compared to the mild pleural effusion and moderate consolidation of the left lower lobe seen on the previous study. Resolution of previously seen right apical pneumothorax. New tiny right pleural effusion. Dictated by Yugn Bond MD @ May 07 2019 7:41PM Signed by Dr. Yung Bond @ May 07 2019 7:45PM
[2019-05-07] MEDS ORDERED: ceFAZolin 1 GM in Premix Bag 1 BAG IV ONE (20:05)
[2019-05-07] MEDS ORDERED: Ondansetron 4 MG/2 ML SDV IVPUSH PRN (21:40)
[2019-05-07] MEDS ORDERED: cefTRIAXone 1 GM in Premix Bag 1 BAG IV SCH (22:00)
[2019-05-08] MEDS ORDERED: cefTRIAXone 1 GM in Premix Bag 1 BAG IV SCH (05:00)
[2019-05-08 07:04] LABS: CARBON DIOXIDE,CO2 19.8 mmol/L (21.0-32.0); POTASSIUM,K 3.7 mmol/L (3.5-5.1)
--- NOTE | 2019-05-08 07:51 | PCM.HP.2 ---
H&P History of Present Illness - General Date of Service: 05/08/19 Admit Problem/Dx: Admission Diagnosis/Problem Admission Diagnosis/Problem Anemia Source of Information: Patient, Old Records History Limitations: Reports: No Limitations - History of Present Illness Initial Comments - Free Text/Narative: This 79 year old female with pmh of colon cancer s/p colectomy and chemotherapy presented to the ED last evening with complaints of severe fatigue and felt she needed blood. She reports she had her last round of chemotherapy 3 weeks ago [address] Porter, oncology in [place] 1 week ago and felt she needed blood then, but they told her, her counts were good. She saw her urologist yesterday and they urged her to get blood, so she came to the ED. She denies overt bleeding, but reports hemorrhoids bleed small amounts time to time. No appetite change, no heartburn or chest pain. No dyspnea. She reports severe fatigue and would be extremely tired after any activity. She denies blood in urine. She otherwise is doing well. She is to follow up with Dr Porter in the next week or so and no scheduled chemotherapy at this time. Reports a cough, which came around Manjit time. Denies bloody sputum. In the ED Hgb 7.5 BUN 29, Cr 1.7. CXR revealed moderate pleural density, either scarring or loculated effusion, but this has improved compared to previous exams. UA revealed +3 bacteria, 10-20 WBC +nitrite and small leukocyte esterase. She was Started on PRBCs and five Rocephin in the ED. UC and BC obtained. She will be admitted for symptomatic anemia and UTI. She was just seen by Oncology on 05/04, hgb 7.9 at that time. No transfusion noted. She now has entered surveillance and follow up 3 months with labwork. - Related Data Allergies/Adverse Reactions: Allergies Allergy/AdvReac Type Severity Reaction Status Date / Time Sulfa (Sulfonamide Allergy Mild Hives Verified 05/07/19 21:13 Antibiotics) sulfamethoxazole Allergy Mild Hives Verified 05/07/19 21:13 [From Bactrim] trimethoprim [From Bactrim] Allergy Mild Hives Verified 05/07/19 21:13 Home Medications: Home Meds Citalopram [Citalopram HBr] 20 mg PO DAILY 12/25/18 [History] Metoprolol Tartrate 25 mg PO BID 12/25/18 [History] Ondansetron [Zofran ODT] 4 mg PO ASDIRECTED PRN 12/25/18 [History] Pantoprazole [ProTONIX] 20 mg PO DAILY 12/25/18 [History] cephALEXin [Keflex] 500 mg PO BID #8 cap 05/08/19 [Rx] Past Medical History - Past Health History Medical/Surgical History: Denies Medical/Surgical History HEENT History: Reports: Cataract, Impaired Vision, Other (See Below) Other HEENT History: Wears glasses. Cardiovascular History: Reports: Hypertension Respiratory History: Reports: Pneumothorax (s/p port placement) Other OB/BYN History: Hysterectomy. Musculoskeletal History: Reports: None Psychiatric History: Reports: None Hematologic History: Reports: Anemia Oncologic (Cancer) History: Reports: Colon - Infectious Disease History Infectious Disease History: Reports: Chicken Pox - Past Surgical History Cardiovascular Surgical History: Reports: Other (See Below) (port placement) GI Surgical History: Reports: Colon, Colonoscopy, Other (See Below) Other GI Surgeries/Procedures: Colon Resection. Social & Family History - Family History Family Medical History: Noncontributory HEENT: Reports: Cataract, Impaired Vision Respiratory: Reports: COPD Oncologic: Reports: Leukemia, Lung - Tobacco Use Smoking Status *Q: Never Smoker Second Hand Smoke Exposure: No - Caffeine Use Caffeine Use: Reports: None - Alcohol Use Alcohol Use History: No - Recreational Drug Use Recreational Drug Use: No H&P Review of Systems - Review of Systems: Review Of Systems: See Below General: Reports: Malaise, Weakness (generalized), Fatigue HEENT: Reports: No Symptoms. Denies: Headaches, Sinus Congestion Pulmonary: Reports: No Symptoms. Denies: Shortness of Breath Cardiovascular: Reports: No Symptoms. Denies: Chest Pain Gastrointestinal: Reports: No Symptoms. Denies: Abdominal Pain, Black Stool, Bloody Stool, Nausea, Vomiting Genitourinary: Reports: No Symptoms. Denies: Dysuria, Frequency, Burning Skin: Reports: No Symptoms Psychiatric: Reports: No Symptoms. Denies: Confusion, Depression Hematologic/Lymphatic: Reports: No Symptoms Immunologic: Reports: No Symptoms Exam - Exam Exam: See Below - Vital Signs Vital Signs: Last Vital Signs Temp 100.4 F 05/08/19 06:44 Pulse 68 05/08/19 06:44 Resp 15 05/08/19 06:44 BP 133/65 05/08/19 06:44 Pulse Ox 94 L 05/08/19 04:00 Weight: 58.014 kg - Exam General: Alert, Oriented, Cooperative HEENT: Conjunctiva Clear, Posterior Pharynx Clear Neck: Supple Lungs: Clear to Auscultation, Normal Respiratory Effort Cardiovascular: Regular Rate, Regular Rhythm GI/Abdominal Exam: Normal Bowel Sounds, Soft, Non-Tender Extremities: Normal Inspection, Normal Range of Motion, Non-Tender, No Pedal Edema Neuro Extensive - Mental Status: Alert, Oriented x3 Neuro Extensive - Motor, Sensory, Reflexes: CN II-XII Intact Psychiatric: Alert, Normal Affect, Normal Mood - Patient Data Lab Results Last 24 hrs: Laboratory Results - last 24 hr 05/07/19 05/07/19 05/07/19 Range/Units 18:56 18:56 18:56 WBC 3.40 L (4.0-11.0) K/uL RBC 2.40 L (4.30-5.90) M/uL Hgb 7.5 L (12.0-16.0) g/dL Hct 24.0 L (36.0-46.0) % MCV 100.0 H (80.0-98.0) fL MCH 31.3 (27.0-32.0) pg MCHC 31.3 (31.0-37.0) g/dL RDW Std Deviation 74.5 H (28.0-62.0) fl RDW Coeff of Mirian 20 H (11.0-15.0) % Plt Count 174 (150-400) K/uL MPV 10.50 (7.40-12.00) fL Neut % (Auto) (48.0-80.0) % Lymph % (Auto) (16.0-40.0) % [place] % (Auto) (0.0-15.0) % Eos % (Auto) (0.0-7.0) % Baso % (Auto) (0.0-1.5) % Neut # (Auto) (1.4-5.7) K/uL Lymph # (Auto) (0.6-2.4) K/uL [place] # (Auto) (0.0-0.8) K/uL Eos # (Auto) (0.0-0.7) K/uL Baso # (Auto) (0.0-0.1) K/uL Add Manual Diff YES Neutrophils % (Manual) 58 (48.0-80.0) % Lymphocytes % (Manual) 19 (16.0-40.0) % Monocytes % (Manual) 22 H (0.0-15.0) % Basophils % (Manual) 1 (0.0-1.5) % Nucleated RBC % 0.0 /100WBC Absolute Seg Neuts 2.0 (1.4-5.7) Lymphocytes # (Manual) 0.6 (0.6-2.4) Monocytes # (Manual) 0.7 (0.0-0.8) Basophils # (Manual) 0.0 (0.0-0.1) Nucleated RBCs # 0 K/uL Poikilocytosis 1+ SLIGHT Sodium 138 (136-145) mmol/L Potassium 3.7 (3.5-5.1) mmol/L Chloride 108 H (98-107) mmol/L Carbon Dioxide 19.1 L (21.0-32.0) mmol/L BUN 29 H (7.0-18.0) mg/dL Creatinine 1.7 H (0.6-1.0) mg/dL Est Cr Clr Drug Dosing 23.55 mL/min Estimated GFR (MDRD) 29.1 ml/min Glucose 100 (74-106) mg/dL Calcium 7.6 L (8.5-10.1) mg/dL Total Bilirubin 0.2 (0.2-1.0) mg/dL AST 32 (15-37) IU/L ALT 21 (14-63) IU/L Alkaline Phosphatase 147 H (46-116) U/L Total Protein 5.3 L (6.4-8.2) g/dL Albumin 2.1 L (3.4-5.0) g/dL Globulin 3.2 (2.6-4.0) g/dL Albumin/Globulin Ratio 0.7 L (0.9-1.6) Urine Color Urine Appearance Urine pH (5.0-8.0) Ur Specific [place] (1.001-1.035) Urine Protein (NEGATIVE) mg/dL Urine Glucose (UA) (NEGATIVE) mg/dL Urine Ketones (NEGATIVE) mg/dL Urine Occult Blood (NEGATIVE) Urine Nitrite (NEGATIVE) Urine Bilirubin (NEGATIVE) Urine Urobilinogen (<2.0) EU/dL Ur Leukocyte Esterase (NEGATIVE) Urine RBC (0-2/HPF) Urine WBC (0-5/HPF) Ur Epithelial Cells (NONE-FEW) Urine Bacteria (NEGATIVE) Blood Type A POSITIVE Antibody Screen NEGATIVE Crossmatch See Detail 05/07/19 05/08/19 05/08/19 Range/Units 19:00 06:33 06:33 WBC 2.58 L (4.0-11.0) K/uL RBC 3.07 L (4.30-5.90) M/uL Hgb 9.4 L (12.0-16.0) g/dL Hct 28.7 L (36.0-46.0) % MCV 93.5 (80.0-98.0) fL MCH 30.6 (27.0-32.0) pg MCHC 32.8 (31.0-37.0) g/dL RDW Std Deviation 69.6 H (28.0-62.0) fl RDW Coeff of Mirian 21 H (11.0-15.0) % Plt Count 132 L (150-400) K/uL MPV 10.10 (7.40-12.00) fL Neut % (Auto) 52.7 (48.0-80.0) % Lymph % (Auto) 26.4 (16.0-40.0) % [place] % (Auto) 19.0 H (0.0-15.0) % Eos % (Auto) 0.0 (0.0-7.0) % Baso % (Auto) 1.9 H (0.0-1.5) % Neut # (Auto) 1.4 (1.4-5.7) K/uL Lymph # (Auto) 0.7 (0.6-2.4) K/uL [place] # (Auto) 0.5 (0.0-0.8) K/uL Eos # (Auto) 0.0 (0.0-0.7) K/uL Baso # (Auto) 0.1 (0.0-0.1) K/uL Add Manual Diff Neutrophils % (Manual) (48.0-80.0) % Lymphocytes % (Manual) (16.0-40.0) % Monocytes % (Manual) (0.0-15.0) % Basophils % (Manual) (0.0-1.5) % Nucleated RBC % 0.0 /100WBC Absolute Seg Neuts (1.4-5.7) Lymphocytes # (Manual) (0.6-2.4) Monocytes # (Manual) (0.0-0.8) Basophils # (Manual) (0.0-0.1) Nucleated RBCs # 0 K/uL Poikilocytosis Sodium 137 (136-145) mmol/L Potassium 3.7 (3.5-5.1) mmol/L Chloride 108 H (98-107) mmol/L Carbon Dioxide 19.8 L (21.0-32.0) mmol/L BUN 26 H (7.0-18.0) mg/dL Creatinine 1.5 H (0.6-1.0) mg/dL Est Cr Clr Drug Dosing 26.69 mL/min Estimated GFR (MDRD) 33.6 ml/min Glucose 89 (74-106) mg/dL Calcium 7.3 L (8.5-10.1) mg/dL Total Bilirubin (0.2-1.0) mg/dL AST (15-37) IU/L ALT (14-63) IU/L Alkaline Phosphatase (46-116) U/L Total Protein (6.4-8.2) g/dL Albumin (3.4-5.0) g/dL Globulin (2.6-4.0) g/dL Albumin/Globulin Ratio (0.9-1.6) Urine Color YELLOW Urine Appearance HAZY Urine pH 6.0 (5.0-8.0) Ur Specific [place] 1.020 (1.001-1.035) Urine Protein 30 H (NEGATIVE) mg/dL Urine Glucose (UA) NEGATIVE (NEGATIVE) mg/dL Urine Ketones NEGATIVE (NEGATIVE) mg/dL Urine Occult Blood SMALL H (NEGATIVE) Urine Nitrite POSITIVE H (NEGATIVE) Urine Bilirubin NEGATIVE (NEGATIVE) Urine Urobilinogen 0.2 (<2.0) EU/dL Ur Leukocyte Esterase SMALL H (NEGATIVE) Urine RBC 2-5 (0-2/HPF) Urine WBC 10-20 (0-5/HPF) Ur Epithelial Cells FEW (NONE-FEW) Urine Bacteria 3+ H (NEGATIVE) Blood Type Antibody Screen Crossmatch Result Diagrams: 05/08/19 06:33 05/08/19 06:33 Sepsis Event Note - Evaluation Sepsis Screening Result: No Definite Risk - Focused Exam Vital Signs: Vital Signs Temp Temp Pulse Resp BP Pulse Ox 05/08/19 06:44 100.4 F 68 15 133/65 05/08/19 05:44 98.9 F 66 16 140/77 05/08/19 04:00 95.5 F 66 16 119/58 L 94 L 05/08/19 02:50 98.9 F 65 15 132/65 05/08/19 02:35 99.1 F 79 15 123/62 05/08/19 02:13 98.9 F 67 14 104/58 L 05/07/19 23:13 98.8 F 72 16 112/53 L 05/07/19 22:59 98.9 F 89 15 121/55 L 05/07/19 21:36 98 F 85 16 145/74 H 95 05/07/19 20:45 100 F 72 18 122/59 L 97 05/07/19 20:04 100.7 F H 73 18 110/54 L 96 Date Exam was Performed: 05/08/19 Time Exam was Performed: 11:39 *Q Meaningful Use (ADM) - VTE *Q VTE Pharmacological Contraindications *Q: Risk of Bleeding - Problem List (1) Anemia SNOMED Code(s): 919236341 ICD Code: D64.9 - ANEMIA, UNSPECIFIED Status: Acute Current Visit: Yes Qualifiers: Anemia type: unspecified type Qualified Code(s): D64.9 - Anemia, unspecified (2) UTI (urinary tract infection) SNOMED Code(s): 35718356 ICD Code: N39.0 - URINARY TRACT INFECTION, SITE NOT SPECIFIED Status: Acute Current Visit: Yes (3) Colon cancer SNOMED Code(s): 619544570 ICD Code: C18.9 - MALIGNANT NEOPLASM OF COLON, UNSPECIFIED Status: Chronic Current Visit: Yes (4) History of recent chemotherapy SNOMED Code(s): 334630047 ICD Code: [id number] - Status: Chronic Current Visit: Yes (5) Hx of colectomy SNOMED Code(s): 250225639 ICD Code: Z90.49 - ACQUIRED ABSENCE OF OTHER SPECIFIED PARTS OF DIGESTIVE TRACT Status: Chronic Current Visit: Yes Problem List Initiated/Reviewed/Updated: Yes Orders Last 24hrs: Active Orders 24 hr Category Date Time Status Admission Status [Patient Status] [ADT] Stat ADT 05/07/19 20:13 Active Telemetry Monitoring [Cardiac Monitoring] [RC] Q8H Care 05/07/19 20:36 Active Regular Diet [DIET] Diet 05/08/19 Breakfast Active CULTURE BLOOD [BC] Stat Lab 05/07/19 20:20 Received CULTURE BLOOD [BC] Stat Lab 05/07/19 20:20 Received CULTURE URINE [RM] Stat Lab 05/07/19 19:00 Received Citalopram [Celexa] Med 05/08/19 09:00 Active 20 mg PO DAILY Metoprolol Tartrate [Lopressor] Med 05/08/19 09:00 Active 25 mg PO BID Ondansetron [Zofran] Med 05/07/19 21:40 Active 4 mg IVPUSH Q4H PRN Pantoprazole [ProTONIX] Med 05/08/19 09:00 Active 20 mg PO DAILY Sodium Chloride 0.9% [Saline Flush] Med 05/07/19 21:39 Active 10 ml FLUSH ASDIRECTED PRN Sodium Chloride 0.9% [Saline Flush] Med 05/07/19 21:39 Active 2.5 ml FLUSH ASDIRECTED PRN cefTRIAXone [Rocephin in Dextrose,Iso-Osm 1 GM/50 ML] 1 Med 05/07/19 22:00 Active gm Premix Bag 1 bag IV Q24H Blood Culture x2 Reflex Set [OM.PC] Stat Oth 05/07/19 20:09 Ordered Blood Culture x2 Reflex Set [OM.PC] Stat Oth 05/07/19 20:09 Ordered Saline Lock Insert [OM.PC] Routine Oth 05/07/19 21:39 Ordered Saline Lock Insert [OM.PC] Stat Oth 05/07/19 18:39 Ordered Transfuse Red Blood Cells [COMM] Stat Oth 05/07/19 20:12 Ordered Medication Orders Citalopram Hydrobromide (Celexa) 20 mg PO DAILY MARCOS Ceftriaxone Sodium/Dextrose 1 (gm/ Premix) 50 mls @ 100 mls/hr IV Q24H MARCOS Last Admin: 05/07/19 22:00 Dose: 100 mls/hr Metoprolol Tartrate (Lopressor) 25 mg PO BID MARCOS Ondansetron HCl (Zofran) 4 mg IVPUSH Q4H PRN PRN Reason: Nausea/Vomiting Pantoprazole Sodium (Protonix) 20 mg PO DAILY MARCOS Sodium Chloride (Saline Flush) 10 ml FLUSH ASDIRECTED PRN PRN Reason: Keep Vein Open Sodium Chloride (Saline Flush) 2.5 ml FLUSH ASDIRECTED PRN PRN Reason: Keep Vein Open Assessment/Plan Comment:: This 79 year old female admitted with symptomatic anemia and UTI 1. Symptomatic anemia: recently completed FOLFOX. Transfused PRBCs, 2 units overnight. hgb 9.4 She reports feeling significantly better and is requesting to go home. Arrange for outpatient follow up to monitor hgb. 2. UTI: UC pending. Continue Rocephin. Discharge Plan: Nieves is feeling much better this morning, Hgb is 9.4. She is requesting discharge home today. She denies any concerns. She will be discharged home today with Keflex for UTI. She is to follow up with PCP next week. She is to return to the ED or clinic if concerns should arise. - Mortality Measure Prognosis:: Good
[2019-05-08] MEDS ORDERED: Citalopram 20 MG Tab PO SCH (09:00)
[2019-05-08] MEDS ORDERED: Metoprolol Tartrate 25 MG Tab PO SCH (09:00)
[2019-05-08] MEDS ORDERED: Pantoprazole 40 MG Tab.CR PO SCH (09:00)
== END 2019-05-08 12:50 | disposition home or self-care (01) ==
LOC: MW.ED 18:37 → MW.MS 20:20
PROVIDERS: ADMIT Internal Medicine; ATTEND Internal Medicine
DX: D64.9 Anemia, unspecified (principal); N39.0 Urinary tract infection, site not specified; C18.9 Malignant neoplasm of colon, unspecified; I10 Essential (primary) hypertension; Z88.2 Allergy status to sulfonamides; Z88.1 Allergy status to other antibiotic agents; Z90.49 Acquired absence of other specified parts of digestive tract; Z92.21 Personal history of antineoplastic chemotherapy
CPT/HCPCS: 36415; 36430; 71045; 80048; 80053; 81001; 85025; 86850; 86900; 86901; 86920; 86921; 86922; 87040; 87086; 87088; 87186; 93005; 96365; 96376; 99285; A9270; G0378; J0690; J0696; J1642; P9016; 96374; 96375; 99284

== ENCOUNTER 2019-06-13 20:49 | Observation (INO) | payer MEDICARE, BC ==
[2019-06-13] MEDS ORDERED: Sodium Chloride 0.9% 10 ML Syringe FLUSH PRN (21:17)
[2019-06-13] MEDS ORDERED: Sodium Chloride 0.9% 2.5 ML Syringe FLUSH PRN (21:17)
[2019-06-13] MEDS ORDERED: Pantoprazole 80 MG in Sodium Chloride 0.9% 20 ML IVPUSH ONE (21:18)
--- NOTE | 2019-06-13 21:23 | EDM.PDOC ---
ED HPI GENERAL MEDICAL PROBLEM - General Chief Complaint: Abdominal Pain Stated Complaint: STOMACH PAINS Time Seen by Provider: 06/13/19 21:06 - History of Present Illness INITIAL COMMENTS - FREE TEXT/NARRATIVE: HISTORY AND PHYSICAL: History of present illness: The patient is a 79-year-old female with a history of hypertension colon cancer for which she has had a colectomy and chemotherapy and follows with an oncologist in [facility] and whose last chemotherapy was the first week of April and who presents with vague mid abdominal pain tingling in her hands and feet that have all been ongoing today which she says is signs of anemia and need for blood transfusion. The patient says that she has had all of these symptoms before and when they seem to get worse she is usually anemic. Patient had an admission here May 07 until May 08 for symptomatic anemia and a UTI and she says she finished her antibiotics. She tells me she has not followed up with her oncologist since that time and is scheduled to see Dr. Wilson at [facility]. She tells me that she has had no fevers chills upper respiratory symptoms coughing chest pain or shortness of breath and she is eating and drinking normally. She says her stools are very mushy today and she has had more than her usual amount but it is not black or bloody. She told me that she did not take anything for the pain specifically in the tingling that she is experiencing is in both hands and feet and that is not new or different for her and it does come and go. She has no weakness no lightheadedness no dizziness and she did not pass out or blackout. She has no flank pain and says that the discomfort she is feeling in her abdomen is in the middle and it is just an achy-like sensation and does not localize right or left. She has no flank pain. She is very adamant in my interview of her and evaluation of her that she is anemic and that is what is causing all the symptoms as this is happened multiple times before. She is not sure where her therapy is going with respect to her colon cancer as she has not yet met with her oncologist in the last 2 months. The patient tells me she is on a chronic antacid , protonix, and she did not take anything extra or more for tonight's discomfort. She insists that the symptoms of the tingling in her hands and feet and her abdominal pain are due to the chemotherapy that is still in her system and she has had these experiences before and she is also convinced that this is the cause of her abdominal discomfort. Her primary concern is of anemia The patient denies that she has had any bleeding such as bleeding gums nosebleeds blood in her urine blood black or bloody stools over the last few days. She says it in the past when she has been anemic she has not had a source and according to the computer on the last admission she did not have any active bleeding source at that time either. Review of systems: As per history of present illness and below otherwise all systems reviewed and negative. Past medical history: As per history of present illness and as reviewed below otherwise noncontributory. Surgical history: As per history of present illness and as reviewed below otherwise noncontributory. Social history: No reported history of drug or alcohol abuse. Family history: As per history of present illness and as reviewed below otherwise noncontributory. Physical exam: General: Well-developed well-nourished lady who is quite talkative in the ED moves easily. She is in absolutely no distress and vital signs are noted by me HEENT: Atraumatic, normocephalic, pupils reactive, negative for conjunctival pallor but they are light pink and slightly diminshed no scleral icterus, mucous membranes moist, throat clear, neck supple, nontender, trachea midline. Lungs: Clear to auscultation, breath sounds equal bilaterally, chest nontender. Heart: S1S2, regular, negative for clicks, rubs, or JVD. Abdomen: Soft, nondistended, nontender. Well-healed scars are appreciated on the abdominal wall and there is normal active bowel sounds and no tympany on percussion. On deep palpation I cannot appreciate or reproduce the pain nor is there any rebound or guarding. Negative for masses or hepatosplenomegaly. Negative for costovertebral tenderness. Pelvis: Stable nontender. Genitourinary: Deferred. Rectal: Deferred. Extremities: Atraumatic, negative for cords or calf pain. Neurovascular unremarkable. Neuro: Awake, alert, oriented. Cranial nerves II through XII unremarkable. Cerebellum unremarkable. Motor and sensory unremarkable throughout. Exam nonfocal. Diagnostics: EKG CBC CMP amylase lipase UA with reflex INR CT scan of the abdomen pelvis type and screen Repeat confirmatory BMP Therapeutics: IV O2 monitor IV fluids Protonix half an amp of D50, insulin IV push, calcium gluconate, On patient's last admission on June 07 she had an admission hemoglobin of 7.5 and she was running about 7.9 with her oncologist. She was transfused on that admission for the symptomatic anemia and her discharge hemoglobin was 9.4. Today her hemoglobin is 10.6. This information has been discussed with the patient. The patient is aware of her testing results including her elevated potassium and she says she is not taking any potassium supplementation and does not eat a lot of potassium rich foods. I will connect with Dr. Garcia who will evaluate her for admission here and I will give her the above medications for her hyperkalemia discussed with him the use of Kayexalate acCording to the CT scan the patient has had only had a colon resection and not a complete colectomy and I will give this information to Dr. Garcia. We will refrain giving Kayexalate per Dr Garcia. He Is here in the emergency department at 2340 seeing the patient and agrees with observation admission. Impression: hyperkalemia h/o of colon cancer and anemia stable Definitive disposition and diagnosis as appropriate pending reevaluation and review of above. abdomen Pain Score (Numeric/FACES): 5 - Related Data Allergies Allergy/AdvReac Type Severity Reaction Status Date / Time Sulfa (Sulfonamide Allergy Mild Hives Verified 06/13/19 21:08 Antibiotics) sulfamethoxazole Allergy Mild Hives Verified 06/13/19 21:08 [From Bactrim] trimethoprim [From Bactrim] Allergy Mild Hives Verified 06/13/19 21:08 Home Meds: Home Meds Pantoprazole [ProTONIX] 20 mg PO DAILY 12/25/18 [History] Folic Acid [FA-8] 0.8 mg PO DAILY 06/13/19 [History] Magnesium 500 mg PO DAILY 06/13/19 [History] Past Medical History - Past Health History Medical/Surgical History: Denies Medical/Surgical History HEENT History: Reports: Cataract, Impaired Vision, Other (See Below) Other HEENT History: Wears glasses. 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 Musculoskeletal History: Reports: None Psychiatric History: Reports: None Hematologic History: Reports: Anemia Oncologic (Cancer) History: Reports: Colon - Infectious Disease History Infectious Disease History: Reports: Chicken Pox - Past Surgical History Cardiovascular Surgical History: Reports: Other (See Below) GI Surgical History: Reports: Colon, Colonoscopy, Other (See Below) Other GI Surgeries/Procedures: Colon Resection; Colon CA Social & Family History - Family History Family Medical History: Noncontributory HEENT: Reports: Cataract, Impaired Vision Respiratory: Reports: COPD Oncologic: Reports: Leukemia, Lung - Tobacco Use Smoking Status *Q: Unknown Ever Smoked - Caffeine Use Caffeine Use: Reports: None ED ROS GENERAL - Review of Systems Review Of Systems: Comprehensive ROS is negative, except as noted in HPI. ED EXAM, GENERAL - Physical Exam Exam: See Below (See dictation) Course - Vital Signs Last Recorded V/S: Last Vital Signs Temp 36.6 C 06/13/19 21:06 Pulse 100 06/13/19 21:06 Resp 18 06/13/19 21:06 BP 126/76 06/13/19 21:06 Pulse Ox 97 06/13/19 21:06 - Orders/Labs/Meds Orders: Active Orders 24 hr Category Date Time Status Cardiac Monitoring [RC] . DIRECTED Care 06/13/19 21:15 Active EKG Documentation Completion [RC] STAT Care 06/13/19 21:15 Active Oxygen Therapy, ED [RC] ASDIRECTED Care 06/13/19 21:15 Active Pulse Oximetry [RC] ASDIRECTED Care 06/13/19 21:15 Active Sodium Chloride 0.9% @ 100 MLS/HR(1,000ml) Med 06/13/19 23:45 Ordered Sodium Chloride 0.9% [Normal Saline] 1,000 ml IV ASDIRECTED Sodium Chloride 0.9% [Normal Saline] 1,000 ml Med 06/13/19 21:30 Active IV ASDIRECTED Sodium Chloride 0.9% [Saline Flush] Med 06/13/19 21:17 Active 10 ml FLUSH ASDIRECTED PRN Sodium Chloride 0.9% [Saline Flush] Med 06/13/19 21:17 Active 2.5 ml FLUSH ASDIRECTED PRN Saline Lock Insert [OM.PC] Stat Oth 06/13/19 21:15 Ordered Medication Orders Sodium Chloride (Normal Saline) 1,000 mls @ 100 mls/hr IV ASDIRECTED MARCOS Last Admin: 06/13/19 21:41 Dose: 100 mls/hr Sodium Chloride (Normal Saline) 1,000 mls @ 100 mls/hr IV ASDIRECTED MARCOS Sodium Chloride (Saline Flush) 10 ml FLUSH ASDIRECTED PRN PRN Reason: Keep Vein Open Sodium Chloride (Saline Flush) 2.5 ml FLUSH ASDIRECTED PRN PRN Reason: Keep Vein Open Labs: Laboratory Tests 06/13/19 06/13/19 06/13/19 Range/Units 21:40 21:40 21:40 WBC 3.70 L (4.0-11.0) K/uL RBC 3.41 L (4.30-5.90) M/uL Hgb 10.6 L (12.0-16.0) g/dL Hct 33.7 L (36.0-46.0) % MCV 98.8 H (80.0-98.0) fL MCH 31.1 (27.0-32.0) pg MCHC 31.5 (31.0-37.0) g/dL RDW Std Deviation 61.9 (28.0-62.0) fl RDW Coeff of Mirian 17 H (11.0-15.0) % Plt Count 353 (150-400) K/uL MPV 9.30 (7.40-12.00) fL Neut % (Auto) 58.1 (48.0-80.0) % Lymph % (Auto) 23.8 (16.0-40.0) % [place] % (Auto) 13.5 (0.0-15.0) % Eos % (Auto) 3.2 (0.0-7.0) % Baso % (Auto) 1.4 (0.0-1.5) % Neut # (Auto) 2.2 (1.4-5.7) K/uL Lymph # (Auto) 0.9 (0.6-2.4) K/uL [place] # (Auto) 0.5 (0.0-0.8) K/uL Eos # (Auto) 0.1 (0.0-0.7) K/uL Baso # (Auto) 0.1 (0.0-0.1) K/uL Nucleated RBC % 0.0 /100WBC Nucleated RBCs # 0 K/uL INR 0.93 Sodium 133 L (136-145) mmol/L Potassium 7.1 H* (3.5-5.1) mmol/L Chloride 103 (98-107) mmol/L Carbon Dioxide 20.5 L (21.0-32.0) mmol/L BUN 49 H (7.0-18.0) mg/dL Creatinine 1.7 H (0.6-1.0) mg/dL Est Cr Clr Drug Dosing 24.05 mL/min Estimated GFR (MDRD) 29.1 ml/min Glucose 92 (74-106) mg/dL POC Glucose (60-110) mg/dL Calcium 9.1 (8.5-10.1) mg/dL Total Bilirubin 0.2 (0.2-1.0) mg/dL AST 38 H (15-37) IU/L ALT 30 (14-63) IU/L Alkaline Phosphatase 266 H (46-116) U/L Total Protein 8.3 H (6.4-8.2) g/dL Albumin 3.0 L (3.4-5.0) g/dL Globulin 5.3 H (2.6-4.0) g/dL Albumin/Globulin Ratio 0.6 L (0.9-1.6) Amylase 112 (25-115) U/L Lipase 307 (73-393) U/L Urine Color Urine Appearance Urine pH (5.0-8.0) Ur Specific [place] (1.001-1.035) Urine Protein (NEGATIVE) mg/dL Urine Glucose (UA) (NEGATIVE) mg/dL Urine Ketones (NEGATIVE) mg/dL Urine Occult Blood (NEGATIVE) Urine Nitrite (NEGATIVE) Urine Bilirubin (NEGATIVE) Urine Urobilinogen (<2.0) EU/dL Ur Leukocyte Esterase (NEGATIVE) Blood Type Antibody Screen 06/13/19 06/13/19 06/13/19 Range/Units 21:40 21:52 22:25 WBC (4.0-11.0) K/uL RBC (4.30-5.90) M/uL Hgb (12.0-16.0) g/dL Hct (36.0-46.0) % MCV (80.0-98.0) fL MCH (27.0-32.0) pg MCHC (31.0-37.0) g/dL RDW Std Deviation (28.0-62.0) fl RDW Coeff of Mirian (11.0-15.0) % Plt Count (150-400) K/uL MPV (7.40-12.00) fL Neut % (Auto) (48.0-80.0) % Lymph % (Auto) (16.0-40.0) % [place] % (Auto) (0.0-15.0) % Eos % (Auto) (0.0-7.0) % Baso % (Auto) (0.0-1.5) % Neut # (Auto) (1.4-5.7) K/uL Lymph # (Auto) (0.6-2.4) K/uL [place] # (Auto) (0.0-0.8) K/uL Eos # (Auto) (0.0-0.7) K/uL Baso # (Auto) (0.0-0.1) K/uL Nucleated RBC % /100WBC Nucleated RBCs # K/uL INR Sodium 134 L (136-145) mmol/L Potassium 7.1 H* (3.5-5.1) mmol/L Chloride 105 (98-107) mmol/L Carbon Dioxide 21.0 (21.0-32.0) mmol/L BUN 49 H (7.0-18.0) mg/dL Creatinine 1.6 H (0.6-1.0) mg/dL Est Cr Clr Drug Dosing 25.55 mL/min Estimated GFR (MDRD) 31.2 ml/min Glucose 91 (74-106) mg/dL POC Glucose (60-110) mg/dL Calcium 8.6 (8.5-10.1) mg/dL Total Bilirubin (0.2-1.0) mg/dL AST (15-37) IU/L ALT (14-63) IU/L Alkaline Phosphatase (46-116) U/L Total Protein (6.4-8.2) g/dL Albumin (3.4-5.0) g/dL Globulin (2.6-4.0) g/dL Albumin/Globulin Ratio (0.9-1.6) Amylase (25-115) U/L Lipase (73-393) U/L Urine Color YELLOW Urine Appearance CLEAR Urine pH 5.5 (5.0-8.0) Ur Specific [place] 1.020 (1.001-1.035) Urine Protein NEGATIVE (NEGATIVE) mg/dL Urine Glucose (UA) NEGATIVE (NEGATIVE) mg/dL Urine Ketones NEGATIVE (NEGATIVE) mg/dL Urine Occult Blood NEGATIVE (NEGATIVE) Urine Nitrite NEGATIVE (NEGATIVE) Urine Bilirubin NEGATIVE (NEGATIVE) Urine Urobilinogen 0.2 (<2.0) EU/dL Ur Leukocyte Esterase NEGATIVE (NEGATIVE) Blood Type A POSITIVE Antibody Screen NEGATIVE 06/13/19 Range/Units 23:38 WBC (4.0-11.0) K/uL RBC (4.30-5.90) M/uL Hgb (12.0-16.0) g/dL Hct (36.0-46.0) % MCV (80.0-98.0) fL MCH (27.0-32.0) pg MCHC (31.0-37.0) g/dL RDW Std Deviation (28.0-62.0) fl RDW Coeff of Mirian (11.0-15.0) % Plt Count (150-400) K/uL MPV (7.40-12.00) fL Neut % (Auto) (48.0-80.0) % Lymph % (Auto) (16.0-40.0) % [place] % (Auto) (0.0-15.0) % Eos % (Auto) (0.0-7.0) % Baso % (Auto) (0.0-1.5) % Neut # (Auto) (1.4-5.7) K/uL Lymph # (Auto) (0.6-2.4) K/uL [place] # (Auto) (0.0-0.8) K/uL Eos # (Auto) (0.0-0.7) K/uL Baso # (Auto) (0.0-0.1) K/uL Nucleated RBC % /100WBC Nucleated RBCs # K/uL INR Sodium (136-145) mmol/L Potassium (3.5-5.1) mmol/L Chloride (98-107) mmol/L Carbon Dioxide (21.0-32.0) mmol/L BUN (7.0-18.0) mg/dL Creatinine (0.6-1.0) mg/dL Est Cr Clr Drug Dosing mL/min Estimated GFR (MDRD) ml/min Glucose (74-106) mg/dL POC Glucose 106 (60-110) mg/dL Calcium (8.5-10.1) mg/dL Total Bilirubin (0.2-1.0) mg/dL AST (15-37) IU/L ALT (14-63) IU/L Alkaline Phosphatase (46-116) U/L Total Protein (6.4-8.2) g/dL Albumin (3.4-5.0) g/dL Globulin (2.6-4.0) g/dL Albumin/Globulin Ratio (0.9-1.6) Amylase (25-115) U/L Lipase (73-393) U/L Urine Color Urine Appearance Urine pH (5.0-8.0) Ur Specific [place] (1.001-1.035) Urine Protein (NEGATIVE) mg/dL Urine Glucose (UA) (NEGATIVE) mg/dL Urine Ketones (NEGATIVE) mg/dL Urine Occult Blood (NEGATIVE) Urine Nitrite (NEGATIVE) Urine Bilirubin (NEGATIVE) Urine Urobilinogen (<2.0) EU/dL Ur Leukocyte Esterase (NEGATIVE) Blood Type Antibody Screen Meds: Medications Generic Name Dose Route Start Last Admin Trade Name Freq PRN Reason Stop Dose Admin Sodium Chloride 1,000 mls @ 100 mls/hr 06/13/19 21:30 06/13/19 21:41 Normal Saline IV 100 mls/hr ASDIRECTED MARCOS Administration Sodium Chloride 1,000 mls @ 100 mls/hr 06/13/19 23:45 Normal Saline IV ASDIRECTED MARCOS Sodium Chloride 10 ml 06/13/19 21:17 Saline Flush FLUSH ASDIRECTED PRN Keep Vein Open Sodium Chloride 2.5 ml 06/13/19 21:17 Saline Flush FLUSH ASDIRECTED PRN Keep Vein Open Discontinued Medications Generic Name Dose Route Start Last Admin Trade Name Freq PRN Reason Stop Dose Admin Calcium Gluconate 1 gm 06/13/19 22:53 06/13/19 23:40 Calcium Gluconate IVPUSH 06/13/19 22:54 1 gm ONETIME ONE Administration Dextrose/Water 25 ml 06/13/19 22:52 06/13/19 23:34 Dextrose 50% In Water IVPUSH 06/13/19 22:53 25 ml ONETIME ONE Administration Pantoprazole Sodium 80 mg/ 20 mls @ 420 mls/hr 06/13/19 21:18 06/13/19 21:42 Sodium Chloride IVPUSH 06/13/19 21:20 420 mls/hr ONETIME ONE Administration Insulin Human Regular 10 unit 06/13/19 22:53 06/13/19 23:35 Novolin R IVPUSH 06/13/19 22:54 10 units ONETIME ONE Administration Protocol Departure - Departure Time of Disposition: 23:53 Disposition: Refer to Observation Condition: Good Clinical Impression: Hyperkalemia - Discharge Information Referrals: PCP,None [Primary Care Provider] - Forms: ED Department Discharge Sepsis Event Note - Evaluation Sepsis Screening Result: No Definite Risk - Focused Exam Vital Signs: Vital Signs Temp Pulse Resp BP Pulse Ox 06/13/19 21:06 36.6 C 100 18 126/76 97 Date Exam was Performed: 06/13/19 Time Exam was Performed: 23:53 - My Orders Last 24 Hours: My Active Orders 06/13/19 21:15 Cardiac Monitoring [RC] . DIRECTED EKG Documentation Completion [RC] STAT Oxygen Therapy, ED [RC] ASDIRECTED Pulse Oximetry [RC] ASDIRECTED Saline Lock Insert [OM.PC] Stat 06/13/19 21:17 Sodium Chloride 0.9% [Saline Flush] 10 ml FLUSH ASDIRECTED PRN Sodium Chloride 0.9% [Saline Flush] 2.5 ml FLUSH ASDIRECTED PRN 06/13/19 21:30 Sodium Chloride 0.9% [Normal Saline] 1,000 ml IV ASDIRECTED 06/13/19 23:45 Sodium Chloride 0.9% @ 100 MLS/HR(1,000ml) Sodium Chloride 0.9% [Normal Saline] 1,000 ml IV ASDIRECTED - Assessment/Plan Last 24 Hours: My Active Orders 06/13/19 21:15 Cardiac Monitoring [RC] . DIRECTED EKG Documentation Completion [RC] STAT Oxygen Therapy, ED [RC] ASDIRECTED Pulse Oximetry [RC] ASDIRECTED Saline Lock Insert [OM.PC] Stat 06/13/19 21:17 Sodium Chloride 0.9% [Saline Flush] 10 ml FLUSH ASDIRECTED PRN Sodium Chloride 0.9% [Saline Flush] 2.5 ml FLUSH ASDIRECTED PRN 06/13/19 21:30 Sodium Chloride 0.9% [Normal Saline] 1,000 ml IV ASDIRECTED 06/13/19 23:45 Sodium Chloride 0.9% @ 100 MLS/HR(1,000ml) Sodium Chloride 0.9% [Normal Saline] 1,000 ml IV ASDIRECTED
[2019-06-13] MEDS ORDERED: Sodium Chloride 0.9% 1,000 ML IV SCH ×2 (21:30→23:45)
[2019-06-13 22:07] LABS: CARBON DIOXIDE,CO2 20.5 mmol/L (21.0-32.0)
[2019-06-13 22:09] LABS: POTASSIUM,K 7.1 mmol/L (3.5-5.1)
[2019-06-13 22:46] LABS: POTASSIUM,K 7.1 mmol/L (3.5-5.1)
[2019-06-13] MEDS ORDERED: 50% Dextrose in Water 50 ML Syringe IVPUSH ONE (22:52)
[2019-06-13] MEDS ORDERED: Calcium Gluconate 10% 1 GM/10 ML SDV IVPUSH ONE (22:53)
[2019-06-13] MEDS ORDERED: Insulin Regular, Human 100 Units/ML 10 ML Vial IVPUSH ONE (22:53)
--- NOTE | 2019-06-13 23:49 | CT ---
INDICATION: Abdominal pain. TECHNIQUE: Noncontrast CT of the abdomen and pelvis. COMPARISON: None. FINDINGS: Large hiatal hernia/partly intrathoracic stomach. Very small left-sided pleural effusion likely loculated. Clear left lung base. The unenhanced liver is negative for masses or biliary dilatation. The unenhanced spleen is within normal limits. The unenhanced pancreas is unremarkable. Contracted gallbladder which is otherwise negative. Absent left kidney. The left adrenal gland may be absent as well. The right adrenal gland is unremarkable. No hydronephrosis of the right kidney. Two right renal cysts. Vascular calcification within a tortuous abdominal aorta and iliac arteries. No bowel obstruction or ileus. Absent uterus and likely the ovaries. The urinary bladder is largely decompressed. No bowel obstruction or ileus. No ascites. Postsurgical change from partial colonic resection. The included skeleton is negative for fractures. Multilevel degenerative disc disease. IMPRESSION: Postsurgical changes in the abdomen and pelvis. No acute abdominal pelvic process confidently identified. Large hiatal hernia/partly intrathoracic stomach. Please note that all CT scans at this facility use dose modulation, iterative reconstruction, and/or weight-based dosing when appropriate to reduce radiation dose to as low as reasonably achievable. Dictated by Anibal Wolff MD @ Jun 13 2019 11:43PM Signed by Dr. Anibal Wolff @ Jun 13 2019 11:48PM
--- NOTE | 2019-06-14 00:07 | PCM.HP.2 ---
H&P History of Present Illness - General Date of Service: 06/14/19 Admit Problem/Dx: Admission Diagnosis/Problem Admission Diagnosis/Problem Hyperkalemia - History of Present Illness Initial Comments - Free Text/Narative: 79 yo female with pmh of colon cancer s/p colon resection and FolFox chemotherapy who presents to the ED as she thought she might be anemic with symptoms of hand tingling and mild abdominal pain. In the ED she was found to be hyperkalemic with potassium of 7.1. CT scan of the abdomen showed no acute process. She denies any changes to her diet and does not take potassium supplementation. 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 abdomen Pain Score (Numeric/FACES): 5 - Related Data Allergies/Adverse Reactions: Allergies Allergy/AdvReac Type Severity Reaction Status Date / Time Sulfa (Sulfonamide Allergy Mild Hives Verified 06/14/19 03:03 Antibiotics) sulfamethoxazole Allergy Mild Hives Verified 06/14/19 03:03 [From Bactrim] trimethoprim [From Bactrim] Allergy Mild Hives Verified 06/14/19 03:03 Home Medications: Home Meds Pantoprazole [ProTONIX] 20 mg PO DAILY 12/25/18 [History] Folic Acid [FA-8] 0.8 mg PO DAILY 06/13/19 [History] Magnesium 500 mg PO DAILY 06/13/19 [History] Past Medical History - Past Health History Medical/Surgical History: Denies Medical/Surgical History HEENT History: Reports: Cataract, Impaired Vision, Other (See Below) Other HEENT History: Wears glasses. Cardiovascular History: Reports: Hypertension Respiratory History: Reports: Pneumothorax Other OB/BYN History: Hysterectomy. Musculoskeletal History: Reports: None Psychiatric History: Reports: None Hematologic History: Reports: Anemia Oncologic (Cancer) History: Reports: Colon - Infectious Disease History Infectious Disease History: Reports: Chicken Pox - Past Surgical History Cardiovascular Surgical History: Reports: Other (See Below) GI Surgical History: Reports: Colon, Colonoscopy, Other (See Below) Other GI Surgeries/Procedures: Colon Resection; Colon CA Social & Family History - Family History Family Medical History: Noncontributory HEENT: Reports: Cataract, Impaired Vision Respiratory: Reports: COPD Oncologic: Reports: Leukemia, Lung - Tobacco Use Smoking Status *Q: Unknown Ever Smoked - Caffeine Use Caffeine Use: Reports: None H&P Review of Systems - Review of Systems: Review Of Systems: Comprehensive ROS is negative, except as noted in HPI. Exam - Exam Exam: See Below - Vital Signs Vital Signs: Last Vital Signs Temp 36.6 C 06/13/19 21:06 Pulse 100 06/13/19 21:06 Resp 18 06/13/19 21:06 BP 126/76 06/13/19 21:06 Pulse Ox 97 06/13/19 21:06 Weight: 60.781 kg - Exam General: Alert, Oriented HEENT: Mucosa Moist & [place] Lungs: Clear to Auscultation, Normal Respiratory Effort Cardiovascular: Regular Rate, Regular Rhythm GI/Abdominal Exam: Soft, Non-Tender Extremities: Non-Tender, No Pedal Edema Skin: Warm, Dry, Intact - Patient Data Lab Results Last 24 hrs: Laboratory Results - last 24 hr 06/13/19 06/13/19 06/13/19 Range/Units 21:40 21:40 21:40 WBC 3.70 L (4.0-11.0) K/uL RBC 3.41 L (4.30-5.90) M/uL Hgb 10.6 L (12.0-16.0) g/dL Hct 33.7 L (36.0-46.0) % MCV 98.8 H (80.0-98.0) fL MCH 31.1 (27.0-32.0) pg MCHC 31.5 (31.0-37.0) g/dL RDW Std Deviation 61.9 (28.0-62.0) fl RDW Coeff of Mirian 17 H (11.0-15.0) % Plt Count 353 (150-400) K/uL MPV 9.30 (7.40-12.00) fL Neut % (Auto) 58.1 (48.0-80.0) % Lymph % (Auto) 23.8 (16.0-40.0) % [place] % (Auto) 13.5 (0.0-15.0) % Eos % (Auto) 3.2 (0.0-7.0) % Baso % (Auto) 1.4 (0.0-1.5) % Neut # (Auto) 2.2 (1.4-5.7) K/uL Lymph # (Auto) 0.9 (0.6-2.4) K/uL [place] # (Auto) 0.5 (0.0-0.8) K/uL Eos # (Auto) 0.1 (0.0-0.7) K/uL Baso # (Auto) 0.1 (0.0-0.1) K/uL Nucleated RBC % 0.0 /100WBC Nucleated RBCs # 0 K/uL INR 0.93 Sodium 133 L (136-145) mmol/L Potassium 7.1 H* (3.5-5.1) mmol/L Chloride 103 (98-107) mmol/L Carbon Dioxide 20.5 L (21.0-32.0) mmol/L BUN 49 H (7.0-18.0) mg/dL Creatinine 1.7 H (0.6-1.0) mg/dL Est Cr Clr Drug Dosing 24.05 mL/min Estimated GFR (MDRD) 29.1 ml/min Glucose 92 (74-106) mg/dL POC Glucose (60-110) mg/dL Calcium 9.1 (8.5-10.1) mg/dL Total Bilirubin 0.2 (0.2-1.0) mg/dL AST 38 H (15-37) IU/L ALT 30 (14-63) IU/L Alkaline Phosphatase 266 H (46-116) U/L Total Protein 8.3 H (6.4-8.2) g/dL Albumin 3.0 L (3.4-5.0) g/dL Globulin 5.3 H (2.6-4.0) g/dL Albumin/Globulin Ratio 0.6 L (0.9-1.6) Amylase 112 (25-115) U/L Lipase 307 (73-393) U/L Urine Color Urine Appearance Urine pH (5.0-8.0) Ur Specific Stanley (1.001-1.035) Urine Protein (NEGATIVE) mg/dL Urine Glucose (UA) (NEGATIVE) mg/dL Urine Ketones (NEGATIVE) mg/dL Urine Occult Blood (NEGATIVE) Urine Nitrite (NEGATIVE) Urine Bilirubin (NEGATIVE) Urine Urobilinogen (<2.0) EU/dL Ur Leukocyte Esterase (NEGATIVE) Blood Type Antibody Screen 06/13/19 06/13/19 06/13/19 Range/Units 21:40 21:52 22:25 WBC (4.0-11.0) K/uL RBC (4.30-5.90) M/uL Hgb (12.0-16.0) g/dL Hct (36.0-46.0) % MCV (80.0-98.0) fL MCH (27.0-32.0) pg MCHC (31.0-37.0) g/dL RDW Std Deviation (28.0-62.0) fl RDW Coeff of Mirian (11.0-15.0) % Plt Count (150-400) K/uL MPV (7.40-12.00) fL Neut % (Auto) (48.0-80.0) % Lymph % (Auto) (16.0-40.0) % [place] % (Auto) (0.0-15.0) % Eos % (Auto) (0.0-7.0) % Baso % (Auto) (0.0-1.5) % Neut # (Auto) (1.4-5.7) K/uL Lymph # (Auto) (0.6-2.4) K/uL [place] # (Auto) (0.0-0.8) K/uL Eos # (Auto) (0.0-0.7) K/uL Baso # (Auto) (0.0-0.1) K/uL Nucleated RBC % /100WBC Nucleated RBCs # K/uL INR Sodium 134 L (136-145) mmol/L Potassium 7.1 H* (3.5-5.1) mmol/L Chloride 105 (98-107) mmol/L Carbon Dioxide 21.0 (21.0-32.0) mmol/L BUN 49 H (7.0-18.0) mg/dL Creatinine 1.6 H (0.6-1.0) mg/dL Est Cr Clr Drug Dosing 25.55 mL/min Estimated GFR (MDRD) 31.2 ml/min Glucose 91 (74-106) mg/dL POC Glucose (60-110) mg/dL Calcium 8.6 (8.5-10.1) mg/dL Total Bilirubin (0.2-1.0) mg/dL AST (15-37) IU/L ALT (14-63) IU/L Alkaline Phosphatase (46-116) U/L Total Protein (6.4-8.2) g/dL Albumin (3.4-5.0) g/dL Globulin (2.6-4.0) g/dL Albumin/Globulin Ratio (0.9-1.6) Amylase (25-115) U/L Lipase (73-393) U/L Urine Color YELLOW Urine Appearance CLEAR Urine pH 5.5 (5.0-8.0) Ur Specific Stanley 1.020 (1.001-1.035) Urine Protein NEGATIVE (NEGATIVE) mg/dL Urine Glucose (UA) NEGATIVE (NEGATIVE) mg/dL Urine Ketones NEGATIVE (NEGATIVE) mg/dL Urine Occult Blood NEGATIVE (NEGATIVE) Urine Nitrite NEGATIVE (NEGATIVE) Urine Bilirubin NEGATIVE (NEGATIVE) Urine Urobilinogen 0.2 (<2.0) EU/dL Ur Leukocyte Esterase NEGATIVE (NEGATIVE) Blood Type A POSITIVE Antibody Screen NEGATIVE 06/13/19 Range/Units 23:38 WBC (4.0-11.0) K/uL RBC (4.30-5.90) M/uL Hgb (12.0-16.0) g/dL Hct (36.0-46.0) % MCV (80.0-98.0) fL MCH (27.0-32.0) pg MCHC (31.0-37.0) g/dL RDW Std Deviation (28.0-62.0) fl RDW Coeff of Mirian (11.0-15.0) % Plt Count (150-400) K/uL MPV (7.40-12.00) fL Neut % (Auto) (48.0-80.0) % Lymph % (Auto) (16.0-40.0) % [place] % (Auto) (0.0-15.0) % Eos % (Auto) (0.0-7.0) % Baso % (Auto) (0.0-1.5) % Neut # (Auto) (1.4-5.7) K/uL Lymph # (Auto) (0.6-2.4) K/uL [place] # (Auto) (0.0-0.8) K/uL Eos # (Auto) (0.0-0.7) K/uL Baso # (Auto) (0.0-0.1) K/uL Nucleated RBC % /100WBC Nucleated RBCs # K/uL INR Sodium (136-145) mmol/L Potassium (3.5-5.1) mmol/L Chloride (98-107) mmol/L Carbon Dioxide (21.0-32.0) mmol/L BUN (7.0-18.0) mg/dL Creatinine (0.6-1.0) mg/dL Est Cr Clr Drug Dosing mL/min Estimated GFR (MDRD) ml/min Glucose (74-106) mg/dL POC Glucose 106 (60-110) mg/dL Calcium (8.5-10.1) mg/dL Total Bilirubin (0.2-1.0) mg/dL AST (15-37) IU/L ALT (14-63) IU/L Alkaline Phosphatase (46-116) U/L Total Protein (6.4-8.2) g/dL Albumin (3.4-5.0) g/dL Globulin (2.6-4.0) g/dL Albumin/Globulin Ratio (0.9-1.6) Amylase (25-115) U/L Lipase (73-393) U/L Urine Color Urine Appearance Urine pH (5.0-8.0) Ur Specific Stanley (1.001-1.035) Urine Protein (NEGATIVE) mg/dL Urine Glucose (UA) (NEGATIVE) mg/dL Urine Ketones (NEGATIVE) mg/dL Urine Occult Blood (NEGATIVE) Urine Nitrite (NEGATIVE) Urine Bilirubin (NEGATIVE) Urine Urobilinogen (<2.0) EU/dL Ur Leukocyte Esterase (NEGATIVE) Blood Type Antibody Screen Result Diagrams: 06/13/19 21:40 06/14/19 14:30 Sepsis Event Note - Evaluation Sepsis Screening Result: No Definite Risk - Focused Exam Vital Signs: Vital Signs Temp Pulse Resp BP Pulse Ox 06/13/19 21:06 36.6 C 100 18 126/76 97 Date Exam was Performed: 06/14/19 Time Exam was Performed: 16:07 Problem List Initiated/Reviewed/Updated: Yes Orders Last 24hrs: Active Orders 24 hr Category Date Time Status Patient Status [ADT] Stat ADT 06/13/19 23:54 Active Antiembolic Devices [RC] PER UNIT ROUTINE Care 06/14/19 00:00 Ordered Blood Glucose Check, Bedside [RC] Q2HR Care 06/13/19 23:58 Ordered Cardiac Monitoring [RC] . DIRECTED Care 06/13/19 21:15 Active Communication Order [RC] ROUTINE Care 06/13/19 23:57 Ordered EKG Documentation Completion [RC] STAT Care 06/13/19 21:15 Active Oxygen Therapy [RC] PRN Care 06/13/19 23:58 Ordered Oxygen Therapy, ED [RC] ASDIRECTED Care 06/13/19 21:15 Active Pulse Oximetry [RC] ASDIRECTED Care 06/13/19 21:15 Active Up ad Steph [RC] ASDIRECTED Care 06/13/19 23:58 Ordered VTE/DVT Education [RC] PER UNIT ROUTINE Care 06/13/19 23:58 Ordered Vital Signs [RC] Q4H Care 06/13/19 23:58 Ordered Regular Diet [DIET] Diet 06/13/19 Breakfast Ordered BMP [BASIC METABOLIC PANEL,BMP] [CHEM] Stat Lab 06/14/19 02:00 Ordered Heparin Sodium Med 06/13/19 23:45 Ordered 5,000 units SUBCUT Q8H Sodium Chloride 0.9% [Normal Saline] 1,000 ml Med 06/13/19 21:30 Active IV ASDIRECTED Sodium Chloride 0.9% [Normal Saline] 1,000 ml Med 06/13/19 23:45 Active IV ASDIRECTED Sodium Chloride 0.9% [Saline Flush] Med 06/13/19 21:17 Active 10 ml FLUSH ASDIRECTED PRN Sodium Chloride 0.9% [Saline Flush] Med 06/13/19 21:17 Active 2.5 ml FLUSH ASDIRECTED PRN Saline Lock Insert [OM.PC] Stat Oth 06/13/19 21:15 Ordered Sequential Compression Device [OM.PC] Per Unit Routine Oth 06/13/19 23:59 Ordered Resuscitation Status Routine Resus Stat 06/13/19 23:58 Ordered Medication Orders Sodium Chloride (Normal Saline) 1,000 mls @ 100 mls/hr IV ASDIRECTED MARCOS Last Admin: 06/13/19 21:41 Dose: 100 mls/hr Sodium Chloride (Normal Saline) 1,000 mls @ 100 mls/hr IV ASDIRECTED MARCOS Last Admin: 06/13/19 23:53 Dose: 100 mls/hr Sodium Chloride (Saline Flush) 10 ml FLUSH ASDIRECTED PRN PRN Reason: Keep Vein Open Sodium Chloride (Saline Flush) 2.5 ml FLUSH ASDIRECTED PRN PRN Reason: Keep Vein Open Assessment/Plan Comment:: 79 yo female admitted for hyperkalemia. EKG showed no peaked t-waves. She was given Glucose and insulin in the ED. We will recheck BMP on the medical floor and monitor on telemetry.
[2019-06-14] MEDS: Heparin Sodium 5,000 Units/ML Vial SUBCUT SCH ×4 (01:25→23:17)
[2019-06-14 02:23] LABS: CARBON DIOXIDE,CO2 19.4 mmol/L (21.0-32.0); POTASSIUM,K 6.3 mmol/L (3.5-5.1)
[2019-06-14 06:56] LABS: CARBON DIOXIDE,CO2 21.1 mmol/L (21.0-32.0); POTASSIUM,K 6.3 mmol/L (3.5-5.1)
[2019-06-14] MEDS ORDERED: Sodium Chloride 0.9% 1,000 ML IV SCH (09:30)
[2019-06-14] MEDS ORDERED: 50% Dextrose in Water 50 ML Syringe IVPUSH ONE ×3 (09:31→18:16)
[2019-06-14] MEDS ORDERED: Insulin Aspart 100 Units/ML 3 ML Pen SUBCUT ONE (09:32)
[2019-06-14] MEDS ORDERED: Dextrose 5%-0.45% NaCl 1,000 ML IV ONE (11:34)
[2019-06-14 12:28] LABS: POTASSIUM,K 6.5 mmol/L (3.5-5.1)
[2019-06-14] MEDS ORDERED: Sodium Polystyrene Sulfonate 15 GM/60 ML Susp 60 ML Bot PO ONE (15:45)
--- NOTE | 2019-06-14 16:11 | PCM.PN ---
- General Info Date of Service: 06/14/19 - Review of Systems Systems Review Comment:: denies any chest pain, no shortness of breath, no palpitations. - Patient Data Vitals - Most Recent: Last Vital Signs Temp 36.2 C 06/14/19 11:00 Pulse 70 06/14/19 11:00 Resp 20 06/14/19 11:00 BP 124/62 06/14/19 11:00 Pulse Ox 97 06/14/19 11:00 Weight - Most Recent: 60.781 kg I&O - Last 24 Hours: Intake & Output 06/14/19 06/14/19 06/14/19 06:59 14:59 22:59 Intake Total 240 268 920 Output Total 800 1200 Balance -560 268 -280 Lab Results Last 24 Hours: Laboratory Results - last 24 hr 06/13/19 06/13/19 06/13/19 Range/Units 21:40 21:40 21:40 WBC 3.70 L (4.0-11.0) K/uL RBC 3.41 L (4.30-5.90) M/uL Hgb 10.6 L (12.0-16.0) g/dL Hct 33.7 L (36.0-46.0) % MCV 98.8 H (80.0-98.0) fL MCH 31.1 (27.0-32.0) pg MCHC 31.5 (31.0-37.0) g/dL RDW Std Deviation 61.9 (28.0-62.0) fl RDW Coeff of Mirian 17 H (11.0-15.0) % Plt Count 353 (150-400) K/uL MPV 9.30 (7.40-12.00) fL Neut % (Auto) 58.1 (48.0-80.0) % Lymph % (Auto) 23.8 (16.0-40.0) % [place] % (Auto) 13.5 (0.0-15.0) % Eos % (Auto) 3.2 (0.0-7.0) % Baso % (Auto) 1.4 (0.0-1.5) % Neut # (Auto) 2.2 (1.4-5.7) K/uL Lymph # (Auto) 0.9 (0.6-2.4) K/uL [place] # (Auto) 0.5 (0.0-0.8) K/uL Eos # (Auto) 0.1 (0.0-0.7) K/uL Baso # (Auto) 0.1 (0.0-0.1) K/uL Nucleated RBC % 0.0 /100WBC Nucleated RBCs # 0 K/uL INR 0.93 Sodium 133 L (136-145) mmol/L Potassium 7.1 H* (3.5-5.1) mmol/L Chloride 103 (98-107) mmol/L Carbon Dioxide 20.5 L (21.0-32.0) mmol/L BUN 49 H (7.0-18.0) mg/dL Creatinine 1.7 H (0.6-1.0) mg/dL Est Cr Clr Drug Dosing 24.05 mL/min Estimated GFR (MDRD) 29.1 ml/min Glucose 92 (74-106) mg/dL POC Glucose (60-110) mg/dL Calcium 9.1 (8.5-10.1) mg/dL Total Bilirubin 0.2 (0.2-1.0) mg/dL AST 38 H (15-37) IU/L ALT 30 (14-63) IU/L Alkaline Phosphatase 266 H (46-116) U/L Total Protein 8.3 H (6.4-8.2) g/dL Albumin 3.0 L (3.4-5.0) g/dL Globulin 5.3 H (2.6-4.0) g/dL Albumin/Globulin Ratio 0.6 L (0.9-1.6) Amylase 112 (25-115) U/L Lipase 307 (73-393) U/L Urine Color Urine Appearance Urine pH (5.0-8.0) Ur Specific [place] (1.001-1.035) Urine Protein (NEGATIVE) mg/dL Urine Glucose (UA) (NEGATIVE) mg/dL Urine Ketones (NEGATIVE) mg/dL Urine Occult Blood (NEGATIVE) Urine Nitrite (NEGATIVE) Urine Bilirubin (NEGATIVE) Urine Urobilinogen (<2.0) EU/dL Ur Leukocyte Esterase (NEGATIVE) Blood Type Antibody Screen 06/13/19 06/13/19 06/13/19 Range/Units 21:40 21:52 22:25 WBC (4.0-11.0) K/uL RBC (4.30-5.90) M/uL Hgb (12.0-16.0) g/dL Hct (36.0-46.0) % MCV (80.0-98.0) fL MCH (27.0-32.0) pg MCHC (31.0-37.0) g/dL RDW Std Deviation (28.0-62.0) fl RDW Coeff of Mirian (11.0-15.0) % Plt Count (150-400) K/uL MPV (7.40-12.00) fL Neut % (Auto) (48.0-80.0) % Lymph % (Auto) (16.0-40.0) % [place] % (Auto) (0.0-15.0) % Eos % (Auto) (0.0-7.0) % Baso % (Auto) (0.0-1.5) % Neut # (Auto) (1.4-5.7) K/uL Lymph # (Auto) (0.6-2.4) K/uL C[place] # (Auto) (0.0-0.8) K/uL Eos # (Auto) (0.0-0.7) K/uL Baso # (Auto) (0.0-0.1) K/uL Nucleated RBC % /100WBC Nucleated RBCs # K/uL INR Sodium 134 L (136-145) mmol/L Potassium 7.1 H* (3.5-5.1) mmol/L Chloride 105 (98-107) mmol/L Carbon Dioxide 21.0 (21.0-32.0) mmol/L BUN 49 H (7.0-18.0) mg/dL Creatinine 1.6 H (0.6-1.0) mg/dL Est Cr Clr Drug Dosing 25.55 mL/min Estimated GFR (MDRD) 31.2 ml/min Glucose 91 (74-106) mg/dL POC Glucose (60-110) mg/dL Calcium 8.6 (8.5-10.1) mg/dL Total Bilirubin (0.2-1.0) mg/dL AST (15-37) IU/L ALT (14-63) IU/L Alkaline Phosphatase (46-116) U/L Total Protein (6.4-8.2) g/dL Albumin (3.4-5.0) g/dL Globulin (2.6-4.0) g/dL Albumin/Globulin Ratio (0.9-1.6) Amylase (25-115) U/L Lipase (73-393) U/L Urine Color YELLOW Urine Appearance CLEAR Urine pH 5.5 (5.0-8.0) Ur Specific [place] 1.020 (1.001-1.035) Urine Protein NEGATIVE (NEGATIVE) mg/dL Urine Glucose (UA) NEGATIVE (NEGATIVE) mg/dL Urine Ketones NEGATIVE (NEGATIVE) mg/dL Urine Occult Blood NEGATIVE (NEGATIVE) Urine Nitrite NEGATIVE (NEGATIVE) Urine Bilirubin NEGATIVE (NEGATIVE) Urine Urobilinogen 0.2 (<2.0) EU/dL Ur Leukocyte Esterase NEGATIVE (NEGATIVE) Blood Type A POSITIVE Antibody Screen NEGATIVE 06/13/19 06/14/19 06/14/19 Range/Units 23:38 01:30 02:01 WBC (4.0-11.0) K/uL RBC (4.30-5.90) M/uL Hgb (12.0-16.0) g/dL Hct (36.0-46.0) % MCV (80.0-98.0) fL MCH (27.0-32.0) pg MCHC (31.0-37.0) g/dL RDW Std Deviation (28.0-62.0) fl RDW Coeff of Mirian (11.0-15.0) % Plt Count (150-400) K/uL MPV (7.40-12.00) fL Neut % (Auto) (48.0-80.0) % Lymph % (Auto) (16.0-40.0) % [place] % (Auto) (0.0-15.0) % Eos % (Auto) (0.0-7.0) % Baso % (Auto) (0.0-1.5) % Neut # (Auto) (1.4-5.7) K/uL Lymph # (Auto) (0.6-2.4) K/uL Custer # (Auto) (0.0-0.8) K/uL Eos # (Auto) (0.0-0.7) K/uL Baso # (Auto) (0.0-0.1) K/uL Nucleated RBC % /100WBC Nucleated RBCs # K/uL INR Sodium 137 (136-145) mmol/L Potassium 6.3 H (3.5-5.1) mmol/L Chloride 107 (98-107) mmol/L Carbon Dioxide 19.4 L (21.0-32.0) mmol/L BUN 46 H (7.0-18.0) mg/dL Creatinine 1.7 H (0.6-1.0) mg/dL Est Cr Clr Drug Dosing 23.42 mL/min Estimated GFR (MDRD) 29.1 ml/min Glucose 143 H (74-106) mg/dL POC Glucose 106 95 (60-110) mg/dL Calcium 9.0 (8.5-10.1) mg/dL Total Bilirubin (0.2-1.0) mg/dL AST (15-37) IU/L ALT (14-63) IU/L Alkaline Phosphatase (46-116) U/L Total Protein (6.4-8.2) g/dL Albumin (3.4-5.0) g/dL Globulin (2.6-4.0) g/dL Albumin/Globulin Ratio (0.9-1.6) Amylase (25-115) U/L Lipase (73-393) U/L Urine Color Urine Appearance Urine pH (5.0-8.0) Ur Specific [place] (1.001-1.035) Urine Protein (NEGATIVE) mg/dL Urine Glucose (UA) (NEGATIVE) mg/dL Urine Ketones (NEGATIVE) mg/dL Urine Occult Blood (NEGATIVE) Urine Nitrite (NEGATIVE) Urine Bilirubin (NEGATIVE) Urine Urobilinogen (<2.0) EU/dL Ur Leukocyte Esterase (NEGATIVE) Blood Type Antibody Screen 06/14/19 06/14/19 06/14/19 Range/Units 03:41 05:33 05:50 WBC (4.0-11.0) K/uL RBC (4.30-5.90) M/uL Hgb (12.0-16.0) g/dL Hct (36.0-46.0) % MCV (80.0-98.0) fL MCH (27.0-32.0) pg MCHC (31.0-37.0) g/dL RDW Std Deviation (28.0-62.0) fl RDW Coeff of Mirian (11.0-15.0) % Plt Count (150-400) K/uL MPV (7.40-12.00) fL Neut % (Auto) (48.0-80.0) % Lymph % (Auto) (16.0-40.0) % [place] % (Auto) (0.0-15.0) % Eos % (Auto) (0.0-7.0) % Baso % (Auto) (0.0-1.5) % Neut # (Auto) (1.4-5.7) K/uL Lymph # (Auto) (0.6-2.4) K/uL [place] # (Auto) (0.0-0.8) K/uL Eos # (Auto) (0.0-0.7) K/uL Baso # (Auto) (0.0-0.1) K/uL Nucleated RBC % /100WBC Nucleated RBCs # K/uL INR Sodium 137 (136-145) mmol/L Potassium 6.3 H (3.5-5.1) mmol/L Chloride 108 H (98-107) mmol/L Carbon Dioxide 21.1 (21.0-32.0) mmol/L BUN 46 H (7.0-18.0) mg/dL Creatinine 1.6 H (0.6-1.0) mg/dL Est Cr Clr Drug Dosing 24.88 mL/min Estimated GFR (MDRD) 31.2 ml/min Glucose 92 (74-106) mg/dL POC Glucose 72 61 (60-110) mg/dL Calcium 9.1 (8.5-10.1) mg/dL Total Bilirubin (0.2-1.0) mg/dL AST (15-37) IU/L ALT (14-63) IU/L Alkaline Phosphatase (46-116) U/L Total Protein (6.4-8.2) g/dL Albumin (3.4-5.0) g/dL Globulin (2.6-4.0) g/dL Albumin/Globulin Ratio (0.9-1.6) Amylase (25-115) U/L Lipase (73-393) U/L Urine Color Urine Appearance Urine pH (5.0-8.0) Ur Specific [place] (1.001-1.035) Urine Protein (NEGATIVE) mg/dL Urine Glucose (UA) (NEGATIVE) mg/dL Urine Ketones (NEGATIVE) mg/dL Urine Occult Blood (NEGATIVE) Urine Nitrite (NEGATIVE) Urine Bilirubin (NEGATIVE) Urine Urobilinogen (<2.0) EU/dL Ur Leukocyte Esterase (NEGATIVE) Blood Type Antibody Screen 06/14/19 06/14/19 06/14/19 Range/Units 06:04 07:32 09:31 WBC (4.0-11.0) K/uL RBC (4.30-5.90) M/uL Hgb (12.0-16.0) g/dL Hct (36.0-46.0) % MCV (80.0-98.0) fL MCH (27.0-32.0) pg MCHC (31.0-37.0) g/dL RDW Std Deviation (28.0-62.0) fl RDW Coeff of Mirian (11.0-15.0) % Plt Count (150-400) K/uL MPV (7.40-12.00) fL Neut % (Auto) (48.0-80.0) % Lymph % (Auto) (16.0-40.0) % [place] % (Auto) (0.0-15.0) % Eos % (Auto) (0.0-7.0) % Baso % (Auto) (0.0-1.5) % Neut # (Auto) (1.4-5.7) K/uL Lymph # (Auto) (0.6-2.4) K/uL [place] # (Auto) (0.0-0.8) K/uL Eos # (Auto) (0.0-0.7) K/uL Baso # (Auto) (0.0-0.1) K/uL Nucleated RBC % /100WBC Nucleated RBCs # K/uL INR Sodium (136-145) mmol/L Potassium (3.5-5.1) mmol/L Chloride (98-107) mmol/L Carbon Dioxide (21.0-32.0) mmol/L BUN (7.0-18.0) mg/dL Creatinine (0.6-1.0) mg/dL Est Cr Clr Drug Dosing mL/min Estimated GFR (MDRD) ml/min Glucose (74-106) mg/dL POC Glucose 105 76 81 (60-110) mg/dL Calcium (8.5-10.1) mg/dL Total Bilirubin (0.2-1.0) mg/dL AST (15-37) IU/L ALT (14-63) IU/L Alkaline Phosphatase (46-116) U/L Total Protein (6.4-8.2) g/dL Albumin (3.4-5.0) g/dL Globulin (2.6-4.0) g/dL Albumin/Globulin Ratio (0.9-1.6) Amylase (25-115) U/L Lipase (73-393) U/L Urine Color Urine Appearance Urine pH (5.0-8.0) Ur Specific [place] (1.001-1.035) Urine Protein (NEGATIVE) mg/dL Urine Glucose (UA) (NEGATIVE) mg/dL Urine Ketones (NEGATIVE) mg/dL Urine Occult Blood (NEGATIVE) Urine Nitrite (NEGATIVE) Urine Bilirubin (NEGATIVE) Urine Urobilinogen (<2.0) EU/dL Ur Leukocyte Esterase (NEGATIVE) Blood Type Antibody Screen 06/14/19 06/14/19 06/14/19 Range/Units 11:28 11:46 12:07 WBC (4.0-11.0) K/uL RBC (4.30-5.90) M/uL Hgb (12.0-16.0) g/dL Hct (36.0-46.0) % MCV (80.0-98.0) fL MCH (27.0-32.0) pg MCHC (31.0-37.0) g/dL RDW Std Deviation (28.0-62.0) fl RDW Coeff of Mirian (11.0-15.0) % Plt Count (150-400) K/uL MPV (7.40-12.00) fL Neut % (Auto) (48.0-80.0) % Lymph % (Auto) (16.0-40.0) % [place] % (Auto) (0.0-15.0) % Eos % (Auto) (0.0-7.0) % Baso % (Auto) (0.0-1.5) % Neut # (Auto) (1.4-5.7) K/uL Lymph # (Auto) (0.6-2.4) K/uL [place] # (Auto) (0.0-0.8) K/uL Eos # (Auto) (0.0-0.7) K/uL Baso # (Auto) (0.0-0.1) K/uL Nucleated RBC % /100WBC Nucleated RBCs # K/uL INR Sodium 137 (136-145) mmol/L Potassium 6.5 H (3.5-5.1) mmol/L Chloride 107 (98-107) mmol/L Carbon Dioxide 21.0 (21.0-32.0) mmol/L BUN 44 H (7.0-18.0) mg/dL Creatinine 1.5 H (0.6-1.0) mg/dL Est Cr Clr Drug Dosing 26.54 mL/min Estimated GFR (MDRD) 33.6 ml/min Glucose 146 H (74-106) mg/dL POC Glucose 21 L 196 H (60-110) mg/dL Calcium 8.8 (8.5-10.1) mg/dL Total Bilirubin (0.2-1.0) mg/dL AST (15-37) IU/L ALT (14-63) IU/L Alkaline Phosphatase (46-116) U/L Total Protein (6.4-8.2) g/dL Albumin (3.4-5.0) g/dL Globulin (2.6-4.0) g/dL Albumin/Globulin Ratio (0.9-1.6) Amylase (25-115) U/L Lipase (73-393) U/L Urine Color Urine Appearance Urine pH (5.0-8.0) Ur Specific [place] (1.001-1.035) Urine Protein (NEGATIVE) mg/dL Urine Glucose (UA) (NEGATIVE) mg/dL Urine Ketones (NEGATIVE) mg/dL Urine Occult Blood (NEGATIVE) Urine Nitrite (NEGATIVE) Urine Bilirubin (NEGATIVE) Urine Urobilinogen (<2.0) EU/dL Ur Leukocyte Esterase (NEGATIVE) Blood Type Antibody Screen 06/14/19 06/14/19 06/14/19 Range/Units 12:20 13:23 14:30 WBC (4.0-11.0) K/uL RBC (4.30-5.90) M/uL Hgb (12.0-16.0) g/dL Hct (36.0-46.0) % MCV (80.0-98.0) fL MCH (27.0-32.0) pg MCHC (31.0-37.0) g/dL RDW Std Deviation (28.0-62.0) fl RDW Coeff of Mirian (11.0-15.0) % Plt Count (150-400) K/uL MPV (7.40-12.00) fL Neut % (Auto) (48.0-80.0) % Lymph % (Auto) (16.0-40.0) % [place] % (Auto) (0.0-15.0) % Eos % (Auto) (0.0-7.0) % Baso % (Auto) (0.0-1.5) % Neut # (Auto) (1.4-5.7) K/uL Lymph # (Auto) (0.6-2.4) K/uL [place] # (Auto) (0.0-0.8) K/uL Eos # (Auto) (0.0-0.7) K/uL Baso # (Auto) (0.0-0.1) K/uL Nucleated RBC % /100WBC Nucleated RBCs # K/uL INR Sodium (136-145) mmol/L Potassium 7.0 H (3.5-5.1) mmol/L Chloride (98-107) mmol/L Carbon Dioxide (21.0-32.0) mmol/L BUN (7.0-18.0) mg/dL Creatinine (0.6-1.0) mg/dL Est Cr Clr Drug Dosing mL/min Estimated GFR (MDRD) ml/min Glucose (74-106) mg/dL POC Glucose 131 H 100 (60-110) mg/dL Calcium (8.5-10.1) mg/dL Total Bilirubin (0.2-1.0) mg/dL AST (15-37) IU/L ALT (14-63) IU/L Alkaline Phosphatase (46-116) U/L Total Protein (6.4-8.2) g/dL Albumin (3.4-5.0) g/dL Globulin (2.6-4.0) g/dL Albumin/Globulin Ratio (0.9-1.6) Amylase (25-115) U/L Lipase (73-393) U/L Urine Color Urine Appearance Urine pH (5.0-8.0) Ur Specific [place] (1.001-1.035) Urine Protein (NEGATIVE) mg/dL Urine Glucose (UA) (NEGATIVE) mg/dL Urine Ketones (NEGATIVE) mg/dL Urine Occult Blood (NEGATIVE) Urine Nitrite (NEGATIVE) Urine Bilirubin (NEGATIVE) Urine Urobilinogen (<2.0) EU/dL Ur Leukocyte Esterase (NEGATIVE) Blood Type Antibody Screen 06/14/19 06/14/19 Range/Units 14:35 15:46 WBC (4.0-11.0) K/uL RBC (4.30-5.90) M/uL Hgb (12.0-16.0) g/dL Hct (36.0-46.0) % MCV (80.0-98.0) fL MCH (27.0-32.0) pg MCHC (31.0-37.0) g/dL RDW Std Deviation (28.0-62.0) fl RDW Coeff of Mirian (11.0-15.0) % Plt Count (150-400) K/uL MPV (7.40-12.00) fL Neut % (Auto) (48.0-80.0) % Lymph % (Auto) (16.0-40.0) % [place] % (Auto) (0.0-15.0) % Eos % (Auto) (0.0-7.0) % Baso % (Auto) (0.0-1.5) % Neut # (Auto) (1.4-5.7) K/uL Lymph # (Auto) (0.6-2.4) K/uL [place] # (Auto) (0.0-0.8) K/uL Eos # (Auto) (0.0-0.7) K/uL Baso # (Auto) (0.0-0.1) K/uL Nucleated RBC % /100WBC Nucleated RBCs # K/uL INR Sodium (136-145) mmol/L Potassium (3.5-5.1) mmol/L Chloride (98-107) mmol/L Carbon Dioxide (21.0-32.0) mmol/L BUN (7.0-18.0) mg/dL Creatinine (0.6-1.0) mg/dL Est Cr Clr Drug Dosing mL/min Estimated GFR (MDRD) ml/min Glucose (74-106) mg/dL POC Glucose 135 H 122 H (60-110) mg/dL Calcium (8.5-10.1) mg/dL Total Bilirubin (0.2-1.0) mg/dL AST (15-37) IU/L ALT (14-63) IU/L Alkaline Phosphatase (46-116) U/L Total Protein (6.4-8.2) g/dL Albumin (3.4-5.0) g/dL Globulin (2.6-4.0) g/dL Albumin/Globulin Ratio (0.9-1.6) Amylase (25-115) U/L Lipase (73-393) U/L Urine Color Urine Appearance Urine pH (5.0-8.0) Ur Specific [place] (1.001-1.035) Urine Protein (NEGATIVE) mg/dL Urine Glucose (UA) (NEGATIVE) mg/dL Urine Ketones (NEGATIVE) mg/dL Urine Occult Blood (NEGATIVE) Urine Nitrite (NEGATIVE) Urine Bilirubin (NEGATIVE) Urine Urobilinogen (<2.0) EU/dL Ur Leukocyte Esterase (NEGATIVE) Blood Type Antibody Screen Med Orders - Current: Current Medications Heparin Sodium (Porcine) (Heparin Sodium) 5,000 units SUBCUT Q8H MARCOS Last Admin: 06/14/19 15:56 Dose: 5,000 units Sodium Chloride (Normal Saline) 1,000 mls @ 125 mls/hr IV ASDIRECTED MARCOS Last Admin: 06/14/19 09:27 Dose: 125 mls/hr Dextrose/Sodium Chloride (Dextrose 5%-1/2 Ns) 1,000 mls @ 150 mls/hr IV ONETIME ONE Stop: 06/14/19 18:13 Last Admin: 06/14/19 11:41 Dose: 150 mls/hr Insulin Human Regular 100 unit (/ Sodium Chloride) 100 mls @ 1 mls/hr IV TITRATE MARCOS; Protocol Sodium Chloride (Saline Flush) 10 ml FLUSH ASDIRECTED PRN PRN Reason: Keep Vein Open Sodium Chloride (Saline Flush) 2.5 ml FLUSH ASDIRECTED PRN PRN Reason: Keep Vein Open Discontinued Medications Calcium Gluconate (Calcium Gluconate) 1 gm IVPUSH ONETIME ONE Stop: 06/13/19 22:54 Last Admin: 06/13/19 23:40 Dose: 1 gm Dextrose/Water (Dextrose 50% In Water) 25 ml IVPUSH ONETIME ONE Stop: 06/13/19 22:53 Last Admin: 06/13/19 23:34 Dose: 25 ml Dextrose/Water (Dextrose 50% In Water) 50 ml IVPUSH ONETIME ONE Stop: 06/14/19 09:32 Last Admin: 06/14/19 09:41 Dose: 50 ml Dextrose/Water (Dextrose 50% In Water) 50 ml IVPUSH ONETIME ONE Stop: 06/14/19 11:33 Last Admin: 06/14/19 11:38 Dose: 50 ml Sodium Chloride (Normal Saline) 1,000 mls @ 100 mls/hr IV ASDIRECTED [facility] Last Admin: 06/13/19 21:41 Dose: 100 mls/hr Pantoprazole Sodium 80 mg/ (Sodium Chloride) 20 mls @ 420 mls/hr IVPUSH ONETIME ONE Stop: 06/13/19 21:20 Last Admin: 06/13/19 21:42 Dose: 420 mls/hr Sodium Chloride (Normal Saline) 1,000 mls @ 125 mls/hr IV ASDIRECTED [facility] Last Admin: 06/13/19 23:53 Dose: 100 mls/hr Insulin Aspart (Novolog) 10 unit SUBCUT ONETIME ONE Stop: 06/14/19 09:33 Last Admin: 06/14/19 09:39 Dose: 10 units Insulin Human Regular (Novolin R) 10 unit IVPUSH ONETIME ONE; Protocol Stop: 06/13/19 22:54 Last Admin: 06/13/19 23:35 Dose: 10 units Sodium Polystyrene Sulfonate (Kayexalate) 15 gm PO ONETIME ONE Stop: 06/14/19 15:46 Last Admin: 06/14/19 15:51 Dose: 15 gm - Exam General: Alert, Oriented Lungs: Clear to Auscultation, Normal Respiratory Effort Cardiovascular: Regular Rate, Regular Rhythm Extremities: Non-Tender, No Pedal Edema Skin: Warm, Dry, Intact Sepsis Event Note - Evaluation Sepsis Screening Result: No Definite Risk - Focused Exam Vital Signs: Vital Signs Temp Pulse Resp BP Pulse Ox 06/14/19 11:00 36.2 C 70 20 124/62 97 06/14/19 07:35 36.1 C 83 18 116/63 96 Date Exam was Performed: 06/14/19 Time Exam was Performed: 16:07 - Problem List Review Problem List Initiated/Reviewed/Updated: Yes - My Orders Last 24 Hours: My Active Orders 06/13/19 23:45 Heparin Sodium 5,000 units SUBCUT Q8H 06/13/19 23:57 Communication Order [RC] ROUTINE 06/13/19 23:58 Blood Glucose Check, Bedside [RC] Q2HR Oxygen Therapy [RC] PRN Telemetry Monitoring [Cardiac Monitoring] [RC] Q8H Up ad Steph [RC] ASDIRECTED VTE/DVT Education [RC] DAILY Vital Signs [RC] Q4H Resuscitation Status Routine 06/13/19 23:59 Sequential Compression Device [OM.PC] Per Unit Routine 06/14/19 00:00 Antiembolic Devices [RC] PER UNIT ROUTINE 06/14/19 09:30 Sodium Chloride 0.9% [Normal Saline] 1,000 ml IV ASDIRECTED 06/14/19 11:34 Dextrose 5%-0.45% NaCl [Dextrose 5%-1/2 NS] 1,000 ml IV ONETIME 06/14/19 16:04 Transfer Patient (Change bed) [ADT] Routine 06/14/19 16:15 Insulin Regular, Human [NovoLIN R] 100 unit Sodium Chloride 0.9% [Normal Saline] 99 ml IV TITRATE - Plan Plan:: 79 yo female admitted for hyperkalemia. EKG showed no peaked t-waves. Despite several boluses of glucose and insulin, patient's potassium remains elevated. Will tray kayexelate and insulin drip to avoid lows from insulin boluses.
[2019-06-14] MEDS ORDERED: Dextrose 5%-0.45% NaCl 1,000 ML IV SCH (17:49)
[2019-06-14] MEDS ORDERED: Calcium Gluconate 10% 1 GM/10 ML SDV IVPUSH ONE (18:07)
[2019-06-14] MEDS ORDERED: Furosemide 40 MG in Sodium Chloride 0.9% 50 ML IV STA (18:08)
[2019-06-14] MEDS ORDERED: Furosemide 40 MG/4 ML VIAL IVPUSH ONE (18:23)
--- NOTE | 2019-06-14 18:24 | PN ---
THC Physician - Brief Progress [id number]/02/2020 18[facility] [place] [facility] - ELSIN CASSIDY SANTIAGO.Date of Service 06/14/2019 18:11HPI/Events of Note eICU Admission [id number] F with PMH of colon CA s/p colon resection and FolFox chemotherapy who p resents with mild abdominal pain. Patient found to have K+ 7.1, given calcium gluconate + D50 + insu immanuel, but K+ still 7.0 this afternoon. Patient seen on camera, comfortable. Discussed with bedside romero james and reviewed notes in the EMR. CT abd/pelvis showed no acute issues and no hydronephrosis. 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 Kayexalate 15grams PO x 1 ordered and plan was to s tart insulin drip since IV insulin boluses dropped patient's BS.eICU Recommendations:1. Give D50, if BS > 100, start insulin drip per Dr. Anderson orders.2. Give calcium gluconate 1 gram IV x 1.3. Zaldivar e IVF to D5NS at 150ml/hr and give Lasix 40mg IV x 1.4. Check plasma K+ at 1900, if K+ still > 5.5, may need another Lasix +/- D50 + insulin.5. Change diet to renal diet.6. Heparin + SC for DVT proph ylaxis.7. May need to start fludrocortisone if hyperkalemia persists.Thank you for allowing us to pa gonzalez in the care of your patient.Interventions Major-Electrolyte abnormality - evaluation and man agementIntermediate-Communication with other healthcare providers and/or family, Diagnostic test eval uation, Medication change / dose adjustmentElectronically Signed by: CHARMAINE HOUGH) on 020 18:23
[2019-06-14] MEDS: Dextrose 5%-0.9% NaCl 1,000 ML IV SCH (18:59)
[2019-06-15] MEDS: Dextrose 5%-0.9% NaCl 1,000 ML IV SCH ×2 (02:42→10:59)
[2019-06-15] MEDS ORDERED: Calcium Carbonate 500 MG Tab.Chew PO PRN (03:52)
--- NOTE | 2019-06-15 03:55 | PN ---
THC Physician - Brief Progress [id number]/03/2020 03:53[facility] Carla, SANDEEP - CARMEN ([facility]) - CASSIDY PETERSONDate of Service 06/15/2019 03:53HPI/Events of Note Improving K+Repeat AM labs orderedHas some heartburn, TUMS requested and orderedInterventions Mi nor-Routine modifications to care plan (e.g. PRN medications for pain, fever)
[2019-06-15 06:21] LABS: CARBON DIOXIDE,CO2 22.6 mmol/L (21.0-32.0); POTASSIUM,K 5.1 mmol/L (3.5-5.1)
[2019-06-15] MEDS: Heparin Sodium 5,000 Units/ML Vial SUBCUT SCH ×3 (07:25→23:09)
--- NOTE | 2019-06-15 09:16 | PN ---
THC Physician - Brief Progress [id number]/03/2020 09:14[facility] Carla Taylor, SANDEEP [facility] - ELS[facility] KENNEDYCASSIDY BallardCamDate of Service 06/15/2019 09:14HPI/Events of Note eICU Admission [id number] F with PMH of colon CA s/p colon resection and FolFox chemotherapy who p resents with mild abdominal pain. Patient found to have K+ 7.1, given calcium gluconate + D50 + insul in, but K+ still 7.0, hence transfer to ICU. Patient seen on camera, comfortable. Discussed with be dside nurse and reviewed notes in the EMR. CT abd/pelvis showed no acute issues and no hydronephrosis . Patient has CKD 3/4, creatinine at baseline of 1.7. Insulin drip discontinued.eICU Recommendation s:1. Continue renal diet.2. Heparin + SC for DVT prophylaxis.3. May need to start fludrocortisone if hyperkalemia persists in the future.Thank you for allowing us to particpate in the care of your pa nimesh.Interventions Intermediate-Communication with other healthcare providers and/or family, Electro lyte abnormality - evaluation and managementElectronically Signed by: CHARMAINE OHUGH) on 2019 09:15
[2019-06-15] MEDS ORDERED: Docusate Sodium 100 MG Cap PO PRN (11:16)
--- NOTE | 2019-06-15 11:30 | PCM.PN ---
- General Info Date of Service: 06/15/19 Subjective Update: The patient reports she feels much better and wants to go home. Denies chest pain, shortness of breath, or abdominal pain. Eating and drinking without issue. Telemetry showed SR, occ PAC - Review of Systems General: Reports: No Symptoms HEENT: Reports: No Symptoms Pulmonary: Reports: No Symptoms Cardiovascular: Reports: No Symptoms Gastrointestinal: Reports: No Symptoms Genitourinary: Reports: No Symptoms Musculoskeletal: Reports: No Symptoms Skin: Reports: No Symptoms Neurological: Reports: No Symptoms Psychiatric: Reports: No Symptoms - Patient Data Vitals - Most Recent: Last Vital Signs Temp 97.6 F 06/15/19 08:00 Pulse 70 06/14/19 11:00 Resp 13 06/15/19 11:00 BP 109/59 L 06/15/19 11:00 Pulse Ox 97 06/15/19 11:00 Weight - Most Recent: 53.5 kg I&O - Last 24 Hours: Intake & Output 06/14/19 06/15/19 06/15/19 22:59 06:59 14:59 Intake Total 2134 1843 Output Total 1750 4050 Balance 384 -2207 Lab Results Last 24 Hours: Laboratory Results - last 24 hr 06/14/19 06/14/19 06/14/19 Range/Units 11:28 11:46 12:07 WBC (4.0-11.0) K/uL RBC (4.30-5.90) M/uL Hgb (12.0-16.0) g/dL Hct (36.0-46.0) % MCV (80.0-98.0) fL MCH (27.0-32.0) pg MCHC (31.0-37.0) g/dL RDW Std Deviation (28.0-62.0) fl RDW Coeff of Mirian (11.0-15.0) % Plt Count (150-400) K/uL MPV (7.40-12.00) fL Neut % (Auto) (48.0-80.0) % Lymph % (Auto) (16.0-40.0) % [place] % (Auto) (0.0-15.0) % Eos % (Auto) (0.0-7.0) % Baso % (Auto) (0.0-1.5) % Neut # (Auto) (1.4-5.7) K/uL Lymph # (Auto) (0.6-2.4) K/uL [place] # (Auto) (0.0-0.8) K/uL Eos # (Auto) (0.0-0.7) K/uL Baso # (Auto) (0.0-0.1) K/uL Nucleated RBC % /100WBC Nucleated RBCs # K/uL Sodium 137 (136-145) mmol/L Potassium 6.5 H (3.5-5.1) mmol/L Chloride 107 (98-107) mmol/L Carbon Dioxide 21.0 (21.0-32.0) mmol/L BUN 44 H (7.0-18.0) mg/dL Creatinine 1.5 H (0.6-1.0) mg/dL Est Cr Clr Drug Dosing 26.54 mL/min Estimated GFR (MDRD) 33.6 ml/min Glucose 146 H (74-106) mg/dL POC Glucose 21 L 196 H (60-110) mg/dL Calcium 8.8 (8.5-10.1) mg/dL 06/14/19 06/14/19 06/14/19 Range/Units 12:20 13:23 14:30 WBC (4.0-11.0) K/uL RBC (4.30-5.90) M/uL Hgb (12.0-16.0) g/dL Hct (36.0-46.0) % MCV (80.0-98.0) fL MCH (27.0-32.0) pg MCHC (31.0-37.0) g/dL RDW Std Deviation (28.0-62.0) fl RDW Coeff of Mirian (11.0-15.0) % Plt Count (150-400) K/uL MPV (7.40-12.00) fL Neut % (Auto) (48.0-80.0) % Lymph % (Auto) (16.0-40.0) % [place] % (Auto) (0.0-15.0) % Eos % (Auto) (0.0-7.0) % Baso % (Auto) (0.0-1.5) % Neut # (Auto) (1.4-5.7) K/uL Lymph # (Auto) (0.6-2.4) K/uL [place] # (Auto) (0.0-0.8) K/uL Eos # (Auto) (0.0-0.7) K/uL Baso # (Auto) (0.0-0.1) K/uL Nucleated RBC % /100WBC Nucleated RBCs # K/uL Sodium (136-145) mmol/L Potassium 7.0 H (3.5-5.1) mmol/L Chloride (98-107) mmol/L Carbon Dioxide (21.0-32.0) mmol/L BUN (7.0-18.0) mg/dL Creatinine (0.6-1.0) mg/dL Est Cr Clr Drug Dosing mL/min Estimated GFR (MDRD) ml/min Glucose (74-106) mg/dL POC Glucose 131 H 100 (60-110) mg/dL Calcium (8.5-10.1) mg/dL 06/14/19 06/14/19 06/14/19 Range/Units 14:35 15:46 17:03 WBC (4.0-11.0) K/uL RBC (4.30-5.90) M/uL Hgb (12.0-16.0) g/dL Hct (36.0-46.0) % MCV (80.0-98.0) fL MCH (27.0-32.0) pg MCHC (31.0-37.0) g/dL RDW Std Deviation (28.0-62.0) fl RDW Coeff of Mirian (11.0-15.0) % Plt Count (150-400) K/uL MPV (7.40-12.00) fL Neut % (Auto) (48.0-80.0) % Lymph % (Auto) (16.0-40.0) % [place] % (Auto) (0.0-15.0) % Eos % (Auto) (0.0-7.0) % Baso % (Auto) (0.0-1.5) % Neut # (Auto) (1.4-5.7) K/uL Lymph # (Auto) (0.6-2.4) K/uL [place] # (Auto) (0.0-0.8) K/uL Eos # (Auto) (0.0-0.7) K/uL Baso # (Auto) (0.0-0.1) K/uL Nucleated RBC % /100WBC Nucleated RBCs # K/uL Sodium (136-145) mmol/L Potassium (3.5-5.1) mmol/L Chloride (98-107) mmol/L Carbon Dioxide (21.0-32.0) mmol/L BUN (7.0-18.0) mg/dL Creatinine (0.6-1.0) mg/dL Est Cr Clr Drug Dosing mL/min Estimated GFR (MDRD) ml/min Glucose (74-106) mg/dL POC Glucose 135 H 122 H 96 (60-110) mg/dL Calcium (8.5-10.1) mg/dL 06/14/19 06/14/19 06/14/19 Range/Units 18:02 19:08 21:27 WBC (4.0-11.0) K/uL RBC (4.30-5.90) M/uL Hgb (12.0-16.0) g/dL Hct (36.0-46.0) % MCV (80.0-98.0) fL MCH (27.0-32.0) pg MCHC (31.0-37.0) g/dL RDW Std Deviation (28.0-62.0) fl RDW Coeff of Mirian (11.0-15.0) % Plt Count (150-400) K/uL MPV (7.40-12.00) fL Neut % (Auto) (48.0-80.0) % Lymph % (Auto) (16.0-40.0) % [place] % (Auto) (0.0-15.0) % Eos % (Auto) (0.0-7.0) % Baso % (Auto) (0.0-1.5) % Neut # (Auto) (1.4-5.7) K/uL Lymph # (Auto) (0.6-2.4) K/uL [place] # (Auto) (0.0-0.8) K/uL Eos # (Auto) (0.0-0.7) K/uL Baso # (Auto) (0.0-0.1) K/uL Nucleated RBC % /100WBC Nucleated RBCs # K/uL Sodium (136-145) mmol/L Potassium 6.3 H 5.7 H (3.5-5.1) mmol/L Chloride (98-107) mmol/L Carbon Dioxide (21.0-32.0) mmol/L BUN (7.0-18.0) mg/dL Creatinine (0.6-1.0) mg/dL Est Cr Clr Drug Dosing mL/min Estimated GFR (MDRD) ml/min Glucose (74-106) mg/dL POC Glucose 102 (60-110) mg/dL Calcium (8.5-10.1) mg/dL 06/14/19 06/15/19 06/15/19 Range/Units 21:27 05:50 05:50 WBC 3.33 L (4.0-11.0) K/uL RBC 3.13 L (4.30-5.90) M/uL Hgb 9.6 L (12.0-16.0) g/dL Hct 30.7 L (36.0-46.0) % MCV 98.1 H (80.0-98.0) fL MCH 30.7 (27.0-32.0) pg MCHC 31.3 (31.0-37.0) g/dL RDW Std Deviation 61.1 (28.0-62.0) fl RDW Coeff of Mirian 17 H (11.0-15.0) % Plt Count 310 (150-400) K/uL MPV 8.80 (7.40-12.00) fL Neut % (Auto) 57.7 (48.0-80.0) % Lymph % (Auto) 24.9 (16.0-40.0) % [place] % (Auto) 12.0 (0.0-15.0) % Eos % (Auto) 5.1 (0.0-7.0) % Baso % (Auto) 0.3 (0.0-1.5) % Neut # (Auto) 1.9 (1.4-5.7) K/uL Lymph # (Auto) 0.8 (0.6-2.4) K/uL [place] # (Auto) 0.4 (0.0-0.8) K/uL Eos # (Auto) 0.2 (0.0-0.7) K/uL Baso # (Auto) 0.0 (0.0-0.1) K/uL Nucleated RBC % 0.0 /100WBC Nucleated RBCs # 0 K/uL Sodium 137 (136-145) mmol/L Potassium 5.1 (3.5-5.1) mmol/L Chloride 105 (98-107) mmol/L Carbon Dioxide 22.6 (21.0-32.0) mmol/L BUN 43 H (7.0-18.0) mg/dL Creatinine 1.7 H (0.6-1.0) mg/dL Est Cr Clr Drug Dosing 23.03 mL/min Estimated GFR (MDRD) 29.1 ml/min Glucose 107 H (74-106) mg/dL POC Glucose 119 H (60-110) mg/dL Calcium 8.5 (8.5-10.1) mg/dL 06/15/19 Range/Units 05:53 WBC (4.0-11.0) K/uL RBC (4.30-5.90) M/uL Hgb (12.0-16.0) g/dL Hct (36.0-46.0) % MCV (80.0-98.0) fL MCH (27.0-32.0) pg MCHC (31.0-37.0) g/dL RDW Std Deviation (28.0-62.0) fl RDW Coeff of Mirian (11.0-15.0) % Plt Count (150-400) K/uL MPV (7.40-12.00) fL Neut % (Auto) (48.0-80.0) % Lymph % (Auto) (16.0-40.0) % [place] % (Auto) (0.0-15.0) % Eos % (Auto) (0.0-7.0) % Baso % (Auto) (0.0-1.5) % Neut # (Auto) (1.4-5.7) K/uL Lymph # (Auto) (0.6-2.4) K/uL [place] # (Auto) (0.0-0.8) K/uL Eos # (Auto) (0.0-0.7) K/uL Baso # (Auto) (0.0-0.1) K/uL Nucleated RBC % /100WBC Nucleated RBCs # K/uL Sodium (136-145) mmol/L Potassium (3.5-5.1) mmol/L Chloride (98-107) mmol/L Carbon Dioxide (21.0-32.0) mmol/L BUN (7.0-18.0) mg/dL Creatinine (0.6-1.0) mg/dL Est Cr Clr Drug Dosing mL/min Estimated GFR (MDRD) ml/min Glucose (74-106) mg/dL POC Glucose 109 (60-110) mg/dL Calcium (8.5-10.1) mg/dL Med Orders - Current: Current Medications Calcium Carbonate/Glycine (Tums) 500 mg PO Q2HR PRN PRN Reason: Indigestion Last Admin: 06/15/19 03:57 Dose: 500 mg Docusate Sodium (Colace) 100 mg PO BID PRN PRN Reason: Constipation Heparin Sodium (Porcine) (Heparin Sodium) 5,000 units SUBCUT Q8H [facility]OS Last Admin: 06/15/19 07:25 Dose: 5,000 units Insulin Human Regular 100 unit (/ Sodium Chloride) 100 mls @ 1 mls/hr IV TITRATE MARCOS; Protocol Dextrose/Sodium Chloride (Dextrose 5%-Normal Saline) 1,000 mls @ 150 mls/hr IV ASDIRECTED [facility] Last Admin: 06/15/19 10:59 Dose: 75 mls/hr Sodium Chloride (Saline Flush) 10 ml FLUSH ASDIRECTED PRN PRN Reason: Keep Vein Open Sodium Chloride (Saline Flush) 2.5 ml FLUSH ASDIRECTED PRN PRN Reason: Keep Vein Open Discontinued Medications Calcium Gluconate (Calcium Gluconate) 1 gm IVPUSH ONETIME ONE Stop: 06/13/19 22:54 Last Admin: 06/13/19 23:40 Dose: 1 gm Calcium Gluconate (Calcium Gluconate) 1 gm IVPUSH ONETIME ONE Stop: 06/14/19 18:08 Last Admin: 06/14/19 19:01 Dose: 1 gm Dextrose/Water (Dextrose 50% In Water) 25 ml IVPUSH ONETIME ONE Stop: 06/13/19 22:53 Last Admin: 06/13/19 23:34 Dose: 25 ml Dextrose/Water (Dextrose 50% In Water) 50 ml IVPUSH ONETIME ONE Stop: 06/14/19 09:32 Last Admin: 06/14/19 09:41 Dose: 50 ml Dextrose/Water (Dextrose 50% In Water) 50 ml IVPUSH ONETIME ONE Stop: 06/14/19 11:33 Last Admin: 06/14/19 11:38 Dose: 50 ml Dextrose/Water (Dextrose 50% In Water) 50 ml IVPUSH ONETIME ONE Stop: 06/14/19 18:17 Last Admin: 06/14/19 19:33 Dose: 50 ml Furosemide (Lasix) 40 mg IVPUSH NOW ONE Stop: 06/14/19 18:24 Last Admin: 06/14/19 19:33 Dose: 40 mg Sodium Chloride (Normal Saline) 1,000 mls @ 100 mls/hr IV ASDIRECTED [facility] Last Admin: 06/13/19 21:41 Dose: 100 mls/hr Pantoprazole Sodium 80 mg/ (Sodium Chloride) 20 mls @ 420 mls/hr IVPUSH ONETIME ONE Stop: 06/13/19 21:20 Last Admin: 06/13/19 21:42 Dose: 420 mls/hr Sodium Chloride (Normal Saline) 1,000 mls @ 125 mls/hr IV ASDIRECTED [facility] Last Admin: 06/13/19 23:53 Dose: 100 mls/hr Sodium Chloride (Normal Saline) 1,000 mls @ 125 mls/hr IV ASDIRECTED [facility] Last Admin: 06/14/19 09:27 Dose: 125 mls/hr Dextrose/Sodium Chloride (Dextrose 5%-1/2 Ns) 1,000 mls @ 150 mls/hr IV ONETIME ONE Stop: 06/14/19 18:13 Last Admin: 06/14/19 11:41 Dose: 150 mls/hr Dextrose/Sodium Chloride (Dextrose 5%-1/2 Ns) 1,000 mls @ 150 mls/hr IV ASDIRECTED [facility] Furosemide 40 mg/ Sodium (Chloride) 54 mls @ 100 mls/hr IV NOW STA Stop: 06/14/19 18:40 Last Admin: 06/14/19 19:00 Dose: Not Given Insulin Aspart (Novolog) 10 unit SUBCUT ONETIME ONE Stop: 06/14/19 09:33 Last Admin: 06/14/19 09:39 Dose: 10 units Insulin Human Regular (Novolin R) 10 unit IVPUSH ONETIME ONE; Protocol Stop: 06/13/19 22:54 Last Admin: 06/13/19 23:35 Dose: 10 units Sodium Polystyrene Sulfonate (Kayexalate) 15 gm PO ONETIME ONE Stop: 06/14/19 15:46 Last Admin: 06/14/19 15:51 Dose: 15 gm - Exam General: Alert, Oriented, Cooperative Lungs: Clear to Auscultation, Normal Respiratory Effort Cardiovascular: Regular Rate, Regular Rhythm GI/Abdominal Exam: Normal Bowel Sounds, Soft, Non-Tender, No Distention Extremities: No Pedal Edema Skin: Warm, Dry, Intact Neurological: No New Focal Deficit Psy/Mental Status: Alert, Normal Affect, Normal Mood Sepsis Event Note - Evaluation Sepsis Screening Result: No Definite Risk - Focused Exam Vital Signs: Vital Signs Temp Resp BP Pulse Ox 06/15/19 11:00 13 109/59 L 97 06/15/19 10:00 14 112/69 96 06/15/19 09:00 12 102/63 95 06/15/19 08:00 97.6 F 18 103/67 92 L 06/15/19 07:00 18 109/65 95 06/15/19 06:00 15 108/66 96 06/15/19 05:00 17 110/63 96 06/15/19 04:00 98.2 F 15 109/55 L 96 06/15/19 03:00 15 107/52 L 97 06/15/19 02:00 14 120/62 95 06/15/19 01:00 13 119/64 95 06/15/19 00:00 98.3 F 18 112/89 96 Date Exam was Performed: 06/15/19 Time Exam was Performed: 11:43 - Problem List Review Problem List Initiated/Reviewed/Updated: Yes - My Orders Last 24 Hours: My Active Orders 06/15/19 10:00 Blood Glucose Check, Bedside [RC] Q4H 06/15/19 11:16 Consult to Viscose Cellar Charge Hand [CONS] Routine Docusate Sodium [Colace] 100 mg PO BID PRN - Plan Plan:: 1. Hyperkalemia- resolved- down to 5.1, will recheck this afternoon to make sure not rising back up. Continue D5NS with accuchecks q 4. 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 Consider fludrocortisone if hyperkalemia persists. 2. CKD- slightly worse after lasix yesterday
[2019-06-15 15:38] LABS: CARBON DIOXIDE,CO2 23.1 mmol/L (21.0-32.0); POTASSIUM,K 5.4 mmol/L (3.5-5.1)
[2019-06-15] MEDS ORDERED: Sodium Polystyrene Sulfonate 15 GM/60 ML Susp 60 ML Bot PO ONE (16:00)
[2019-06-16] MEDS: Dextrose 5%-0.9% NaCl 1,000 ML IV SCH ×2 (00:37→16:02)
[2019-06-16] MEDS: Heparin Sodium 5,000 Units/ML Vial SUBCUT SCH ×2 (06:54→16:03)
[2019-06-16 07:32] LABS: CARBON DIOXIDE,CO2 23.4 mmol/L (21.0-32.0); POTASSIUM,K 4.9 mmol/L (3.5-5.1)
--- NOTE | 2019-06-16 08:29 | PCM.PN ---
- General Info Date of Service: 06/16/19 Subjective Update: Patient reports she feels fine and wants to go home. - Review of Systems General: Reports: No Symptoms HEENT: Reports: No Symptoms Pulmonary: Reports: No Symptoms Cardiovascular: Reports: No Symptoms Gastrointestinal: Reports: No Symptoms Genitourinary: Reports: No Symptoms Musculoskeletal: Reports: No Symptoms Skin: Reports: No Symptoms Neurological: Reports: No Symptoms Psychiatric: Reports: No Symptoms - Patient Data Vitals - Most Recent: Last Vital Signs Temp 97.7 F 06/16/19 04:00 Pulse 70 06/14/19 11:00 Resp 18 06/16/19 07:00 BP 114/71 06/16/19 07:00 Pulse Ox 100 06/16/19 07:00 Weight - Most Recent: 55.4 kg I&O - Last 24 Hours: Intake & Output 06/15/19 06/16/19 06/16/19 22:59 06:59 14:59 Intake Total 1800 2228 Output Total 900 1425 500 Balance 900 803 -500 Lab Results Last 24 Hours: Laboratory Results - last 24 hr 06/15/19 06/15/19 06/15/19 Range/Units 10:05 14:43 15:03 WBC (4.0-11.0) K/uL RBC (4.30-5.90) M/uL Hgb (12.0-16.0) g/dL Hct (36.0-46.0) % MCV (80.0-98.0) fL MCH (27.0-32.0) pg MCHC (31.0-37.0) g/dL RDW Std Deviation (28.0-62.0) fl RDW Coeff of Mirian (11.0-15.0) % Plt Count (150-400) K/uL MPV (7.40-12.00) fL Neut % (Auto) (48.0-80.0) % Lymph % (Auto) (16.0-40.0) % [place] % (Auto) (0.0-15.0) % Eos % (Auto) (0.0-7.0) % Baso % (Auto) (0.0-1.5) % Neut # (Auto) (1.4-5.7) K/uL Lymph # (Auto) (0.6-2.4) K/uL [place] # (Auto) (0.0-0.8) K/uL Eos # (Auto) (0.0-0.7) K/uL Baso # (Auto) (0.0-0.1) K/uL Nucleated RBC % /100WBC Nucleated RBCs # K/uL Sodium 136 (136-145) mmol/L Potassium 5.4 H (3.5-5.1) mmol/L Chloride 105 (98-107) mmol/L Carbon Dioxide 23.1 (21.0-32.0) mmol/L BUN 44 H (7.0-18.0) mg/dL Creatinine 1.6 H (0.6-1.0) mg/dL Est Cr Clr Drug Dosing 24.47 mL/min Estimated GFR (MDRD) 31.2 ml/min Glucose 89 (74-106) mg/dL POC Glucose 98 90 (60-110) mg/dL Calcium 8.7 (8.5-10.1) mg/dL 06/15/19 06/15/19 06/16/19 Range/Units 18:59 23:12 03:14 WBC (4.0-11.0) K/uL RBC (4.30-5.90) M/uL Hgb (12.0-16.0) g/dL Hct (36.0-46.0) % MCV (80.0-98.0) fL MCH (27.0-32.0) pg MCHC (31.0-37.0) g/dL RDW Std Deviation (28.0-62.0) fl RDW Coeff of Mirian (11.0-15.0) % Plt Count (150-400) K/uL MPV (7.40-12.00) fL Neut % (Auto) (48.0-80.0) % Lymph % (Auto) (16.0-40.0) % [place] % (Auto) (0.0-15.0) % Eos % (Auto) (0.0-7.0) % Baso % (Auto) (0.0-1.5) % Neut # (Auto) (1.4-5.7) K/uL Lymph # (Auto) (0.6-2.4) K/uL [place] # (Auto) (0.0-0.8) K/uL Eos # (Auto) (0.0-0.7) K/uL Baso # (Auto) (0.0-0.1) K/uL Nucleated RBC % /100WBC Nucleated RBCs # K/uL Sodium (136-145) mmol/L Potassium (3.5-5.1) mmol/L Chloride (98-107) mmol/L Carbon Dioxide (21.0-32.0) mmol/L BUN (7.0-18.0) mg/dL Creatinine (0.6-1.0) mg/dL Est Cr Clr Drug Dosing mL/min Estimated GFR (MDRD) ml/min Glucose (74-106) mg/dL POC Glucose 121 H 81 86 (60-110) mg/dL Calcium (8.5-10.1) mg/dL 06/16/19 06/16/19 Range/Units 07:06 07:06 WBC 2.64 L (4.0-11.0) K/uL RBC 3.09 L (4.30-5.90) M/uL Hgb 9.5 L (12.0-16.0) g/dL Hct 30.6 L (36.0-46.0) % MCV 99.0 H (80.0-98.0) fL MCH 30.7 (27.0-32.0) pg MCHC 31.0 (31.0-37.0) g/dL RDW Std Deviation 62.7 H (28.0-62.0) fl RDW Coeff of Mirian 17 H (11.0-15.0) % Plt Count 319 (150-400) K/uL MPV 9.00 (7.40-12.00) fL Neut % (Auto) 41.8 L (48.0-80.0) % Lymph % (Auto) 39.0 (16.0-40.0) % [place] % (Auto) 11.7 (0.0-15.0) % Eos % (Auto) 6.4 (0.0-7.0) % Baso % (Auto) 1.1 (0.0-1.5) % Neut # (Auto) 1.1 L (1.4-5.7) K/uL Lymph # (Auto) 1.0 (0.6-2.4) K/uL [place] # (Auto) 0.3 (0.0-0.8) K/uL Eos # (Auto) 0.2 (0.0-0.7) K/uL Baso # (Auto) 0.0 (0.0-0.1) K/uL Nucleated RBC % 0.0 /100WBC Nucleated RBCs # 0 K/uL Sodium 141 (136-145) mmol/L Potassium 4.9 (3.5-5.1) mmol/L Chloride 109 H (98-107) mmol/L Carbon Dioxide 23.4 (21.0-32.0) mmol/L BUN 39 H (7.0-18.0) mg/dL Creatinine 1.5 H (0.6-1.0) mg/dL Est Cr Clr Drug Dosing 26.69 mL/min Estimated GFR (MDRD) 33.6 ml/min Glucose 79 (74-106) mg/dL POC Glucose (60-110) mg/dL Calcium 8.4 L (8.5-10.1) mg/dL Med Orders - Current: Current Medications Calcium Carbonate/Glycine (Tums) 500 mg PO Q2HR PRN PRN Reason: Indigestion Last Admin: 06/15/19 03:57 Dose: 500 mg Docusate Sodium (Colace) 100 mg PO BID PRN PRN Reason: Constipation Last Admin: 06/15/19 11:50 Dose: 100 mg Heparin Sodium (Porcine) (Heparin Sodium) 5,000 units SUBCUT Q8H [facility] Last Admin: 06/16/19 06:54 Dose: 5,000 units Insulin Human Regular 100 unit (/ Sodium Chloride) 100 mls @ 1 mls/hr IV TITRATE MARCOS; Protocol Dextrose/Sodium Chloride (Dextrose 5%-Normal Saline) 1,000 mls @ 150 mls/hr IV ASDIRECTED [facility] Last Admin: 06/16/19 00:37 Dose: 75 mls/hr Sodium Chloride (Saline Flush) 10 ml FLUSH ASDIRECTED PRN PRN Reason: Keep Vein Open Sodium Chloride (Saline Flush) 2.5 ml FLUSH ASDIRECTED PRN PRN Reason: Keep Vein Open Discontinued Medications Calcium Gluconate (Calcium Gluconate) 1 gm IVPUSH ONETIME ONE Stop: 06/13/19 22:54 Last Admin: 06/13/19 23:40 Dose: 1 gm Calcium Gluconate (Calcium Gluconate) 1 gm IVPUSH ONETIME ONE Stop: 06/14/19 18:08 Last Admin: 06/14/19 19:01 Dose: 1 gm Dextrose/Water (Dextrose 50% In Water) 25 ml IVPUSH ONETIME ONE Stop: 06/13/19 22:53 Last Admin: 06/13/19 23:34 Dose: 25 ml Dextrose/Water (Dextrose 50% In Water) 50 ml IVPUSH ONETIME ONE Stop: 06/14/19 09:32 Last Admin: 06/14/19 09:41 Dose: 50 ml Dextrose/Water (Dextrose 50% In Water) 50 ml IVPUSH ONETIME ONE Stop: 06/14/19 11:33 Last Admin: 06/14/19 11:38 Dose: 50 ml Dextrose/Water (Dextrose 50% In Water) 50 ml IVPUSH ONETIME ONE Stop: 06/14/19 18:17 Last Admin: 06/14/19 19:33 Dose: 50 ml Furosemide (Lasix) 40 mg IVPUSH NOW ONE Stop: 06/14/19 18:24 Last Admin: 06/14/19 19:33 Dose: 40 mg Sodium Chloride (Normal Saline) 1,000 mls @ 100 mls/hr IV ASDIRECTELY-[facility] Last Admin: 06/13/19 21:41 Dose: 100 mls/hr Pantoprazole Sodium 80 mg/ (Sodium Chloride) 20 mls @ 420 mls/hr IVPUSH ONETIME ONE Stop: 06/13/19 21:20 Last Admin: 06/13/19 21:42 Dose: 420 mls/hr Sodium Chloride (Normal Saline) 1,000 mls @ 125 mls/hr IV ASDIRECTELY-[facility] Last Admin: 06/13/19 23:53 Dose: 100 mls/hr Sodium Chloride (Normal Saline) 1,000 mls @ 125 mls/hr IV ASDIRECTED [facility] Last Admin: 06/14/19 09:27 Dose: 125 mls/hr Dextrose/Sodium Chloride (Dextrose 5%-1/2 Ns) 1,000 mls @ 150 mls/hr IV ONETIME ONE Stop: 06/14/19 18:13 Last Admin: 06/14/19 11:41 Dose: 150 mls/hr Dextrose/Sodium Chloride (Dextrose 5%-1/2 Ns) 1,000 mls @ 150 mls/hr IV ASDIRECTED [facility] Furosemide 40 mg/ Sodium (Chloride) 54 mls @ 100 mls/hr IV NOW STA Stop: 06/14/19 18:40 Last Admin: 06/14/19 19:00 Dose: Not Given Insulin Aspart (Novolog) 10 unit SUBCUT ONETIME ONE Stop: 06/14/19 09:33 Last Admin: 06/14/19 09:39 Dose: 10 units Insulin Human Regular (Novolin R) 10 unit IVPUSH ONETIME ONE; Protocol Stop: 06/13/19 22:54 Last Admin: 06/13/19 23:35 Dose: 10 units Sodium Polystyrene Sulfonate (Kayexalate) 15 gm PO ONETIME ONE Stop: 06/14/19 15:46 Last Admin: 06/14/19 15:51 Dose: 15 gm Sodium Polystyrene Sulfonate (Kayexalate) 15 gm PO ONETIME ONE Stop: 06/15/19 16:01 Last Admin: 06/15/19 16:27 Dose: 15 gm - Exam Quality Assessment: No: Supplemental Oxygen General: Alert, Oriented, Cooperative Lungs: Clear to Auscultation, Normal Respiratory Effort Cardiovascular: Regular Rate, Regular Rhythm GI/Abdominal Exam: Normal Bowel Sounds, Soft, Non-Tender, No Distention Extremities: No Pedal Edema Skin: Warm, Dry Neurological: No New Focal Deficit Psy/Mental Status: Alert, Normal Affect, Normal Mood Sepsis Event Note - Evaluation Sepsis Screening Result: No Definite Risk - Focused Exam Vital Signs: Vital Signs Temp Resp BP Pulse Ox 06/16/19 07:00 18 114/71 100 06/16/19 06:00 12 101/54 L 97 06/16/19 05:00 12 111/57 L 97 06/16/19 04:00 97.7 F 13 96/60 98 06/16/19 03:00 12 107/50 L 98 06/16/19 02:00 13 101/48 L 94 L 06/16/19 01:00 15 96/48 L 95 06/16/19 00:00 97.5 F 14 114/57 L 100 06/15/19 23:00 12 113/52 L 99 06/15/19 22:00 12 114/57 L 97 06/15/19 21:00 16 110/60 100 Date Exam was Performed: 06/16/19 Time Exam was Performed: 10:23 - Problem List Review Problem List Initiated/Reviewed/Updated: Yes - My Orders Last 24 Hours: My Active Orders 06/15/19 10:00 Blood Glucose Check, Bedside [RC] Q4H 06/15/19 11:16 Consult to Knitted Garment Finisher [CONS] Routine Docusate Sodium [Colace] 100 mg PO BID PRN 06/16/19 07:06 ACTH, PLASMA [REF] AM MISC TEST AM 06/16/19 15:00 BASIC METABOLIC PANEL,BMP [CHEM] Routine - Plan Plan:: 1. Hyperkalemia-spiked up to 5.4 yesterday, given Kayexalate and this AM is 4.9. Serum cortisol and ACTH drawn to rule out adrenal insufficiency, that lab work won't be back for a week. Recheck BMP this afternoon, if K climbing, give Kayexalate, if trending down, consider discharge with close PCP follow up. Continue D5NS with accuchecks q 4. Knitted Garment Finisher met with patient yesterday. Consider fludrocortisone if hyperkalemia persists. 2. 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
--- NOTE | 2019-06-16 10:03 | PN ---
THC Physician - Brief Progress [id number]/04/2020 09:59[facility] Carla [place], [place] [facility] KENNEDYElio CASSIDY Ronny.Date of Service 06/16/2019 09:59HPI/Events of Note eICU Progress [id number] admitted for hyperkalemia. History obtained primarily from review of EMR.C amera exam: Laying in bed. Vitals monitor off on my reviewVitals: reviewedLabs: reviewedRadiology: re viewedMeds: reviewedeICU Impression and Recommendations:Hyperkalemia, resolvedNo new recommendations at this timeContinue low K dietDVT and GI prophylaxis as appropriate.We are available to assist in fu rther clarification, or implementation of any of the above recommendations if desired by primary serv ice.Thank you for allowing us to participate in the care of this patient.The above note transcribed w ith the assistance of dictation software. Please excuse any errors.Interventions Major-Electrolyte ab normality - evaluation and management 10: 03
[2019-06-16 16:01] LABS: CARBON DIOXIDE,CO2 24.4 mmol/L (21.0-32.0); POTASSIUM,K 4.9 mmol/L (3.5-5.1)
--- NOTE | 2019-06-16 17:59 | PCM.DCSUM1 ---
Discharge Summary - Hospital Course HPI Initial Comments: Admission Date: 06/13/19 Discharge Date: 06/16/19 Admission Diagnosis: 1. Hyperkalemia 2. Hx of colon cancer s/p colon resection and left nephrectomy Discharge Diagnosis: 1. Hyperkalemia-resolved 2. Hx of colon cancer s/p colon resection and left nephrectomy Procedures: None Consults: Corporate Development Intern Hospital Course: 79 yo female with pmh of colon cancer s/p colon resection and left nephrectomy (Feb 2019) who presented to the ED with symptoms of hand tingling and mild abdominal pain. In the ED she was found to be hyperkalemic with potassium of 7.1. CT scan of the abdomen showed no acute process. EKG did not show peaked T waves. She was given glucose and insulin in ED. She was admitted to the ICU and monitored on telemetry without any significant events. She was given several boluses of glucose and insulin as well as Kayexalate. She did have improvement at one dose of IV Lasix but this made her kidney function slightly worse. Once those effects had worn off, the potassium started to climb again. She was given another dose of Kayexalate. She was placed on renal diet and the materials branch chief educated her on this diet for when she is discharged. Cortisol/ACTH were drawn, results pending at discharge. By day of discharge, the potassium had corrected and were stable. She was asking to go home. Disposition: Home Discharge Condition: vitals stable, tolerating oral diet, ambulating without difficulty, symptom improvement Discharge Instructions: renal diet as tolerated, activity as tolerated, take medications as prescribed. Symptoms to report to physician include fever/chills , chest pain, shortness of breath, abdominal pain, erythema, drainage/discharge , or not improving as expected. Follow up in 2 days for potassium check. Discharge Medications: Follow-up: 1. Dr. Wang 06/18/[address] Garcia 06/29/19 3. Outpatient nephrology referral - Discharge Data Discharge Date: 06/16/19 Discharge Disposition: Home, Self-Care 01 Condition: Stable - Referral to Home Health Primary Care Physician: PCP None - Patient Summary/Data Consults: Consultations 06/15/19 11:16 Consult to Corporate Development Intern [CONS] Routine - Patient Instructions Diet: Renal Diet Activity: As Tolerated Showering/Bathing: May Shower Notify Provider of: Fever, Increased Pain, Swelling and Redness, Drainage, Nausea and/or Vomiting Other/Special Instructions: Additional symptoms include chest pain, shortness of breath, palpitations, or abdominal pain. Keep appt with Dr. Wang on so he can recheck your potassium level. - Discharge Plan *PRESCRIPTION DRUG MONITORING PROGRAM REVIEWED*: No *COPY OF PRESCRIPTION DRUG MONITORING REPORT IN PATIENT CHRIS: No Home Medications: Home Meds Pantoprazole [ProTONIX] 20 mg PO DAILY 12/25/18 [History] Folic Acid [FA-8] 0.8 mg PO DAILY 06/13/19 [History] Magnesium 500 mg PO DAILY 06/13/19 [History] Patient Handouts: Hyperkalemia, Dialysis Diet Referrals: [facility] [Outside] Con Wang MD [Ordering Only Provider] - 06/18/19 10:00 am (This was not able to be made with Dr. Mcdermott, due to his full schedule. Arrive at 945 with a photo ID and insurance card. ) Neftali Wilson MD [Physician] - 06/29/19 10:15 am - Discharge Summary/Plan Comment DC Time >30 min.: No - Patient Data Vitals - Most Recent: Last Vital Signs Temp 97.0 F 06/16/19 17:36 Pulse 68 06/16/19 17:36 Resp 16 06/16/19 17:36 BP 145/79 H 06/16/19 17:36 Pulse Ox 98 06/16/19 17:36 Weight - Most Recent: 55.4 kg I&O - Last 24 hours: Intake & Output 06/16/19 06/16/19 06/16/19 06:59 14:59 22:59 Intake Total 2228 Output Total 1425 500 Balance 803 -500 Lab Results - Last 24 hrs: Laboratory Results - last 24 hr 06/15/19 06/15/19 06/15/19 Range/Units 10:05 14:43 18:59 WBC (4.0-11.0) K/uL RBC (4.30-5.90) M/uL Hgb (12.0-16.0) g/dL Hct (36.0-46.0) % MCV (80.0-98.0) fL MCH (27.0-32.0) pg MCHC (31.0-37.0) g/dL RDW Std Deviation (28.0-62.0) fl RDW Coeff of Mirian (11.0-15.0) % Plt Count (150-400) K/uL MPV (7.40-12.00) fL Neut % (Auto) (48.0-80.0) % Lymph % (Auto) (16.0-40.0) % [place] % (Auto) (0.0-15.0) % Eos % (Auto) (0.0-7.0) % Baso % (Auto) (0.0-1.5) % Neut # (Auto) (1.4-5.7) K/uL Lymph # (Auto) (0.6-2.4) K/uL [place] # (Auto) (0.0-0.8) K/uL Eos # (Auto) (0.0-0.7) K/uL Baso # (Auto) (0.0-0.1) K/uL Nucleated RBC % /100WBC Nucleated RBCs # K/uL Sodium (136-145) mmol/L Potassium (3.5-5.1) mmol/L Chloride (98-107) mmol/L Carbon Dioxide (21.0-32.0) mmol/L BUN (7.0-18.0) mg/dL Creatinine (0.6-1.0) mg/dL Est Cr Clr Drug Dosing mL/min Estimated GFR (MDRD) ml/min Glucose (74-106) mg/dL POC Glucose 98 90 121 H (60-110) mg/dL Calcium (8.5-10.1) mg/dL 06/15/19 06/16/19 06/16/19 Range/Units 23:12 03:14 07:04 WBC (4.0-11.0) K/uL RBC (4.30-5.90) M/uL Hgb (12.0-16.0) g/dL Hct (36.0-46.0) % MCV (80.0-98.0) fL MCH (27.0-32.0) pg MCHC (31.0-37.0) g/dL RDW Std Deviation (28.0-62.0) fl RDW Coeff of Mirian (11.0-15.0) % Plt Count (150-400) K/uL MPV (7.40-12.00) fL Neut % (Auto) (48.0-80.0) % Lymph % (Auto) (16.0-40.0) % [place] % (Auto) (0.0-15.0) % Eos % (Auto) (0.0-7.0) % Baso % (Auto) (0.0-1.5) % Neut # (Auto) (1.4-5.7) K/uL Lymph # (Auto) (0.6-2.4) K/uL [place] # (Auto) (0.0-0.8) K/uL Eos # (Auto) (0.0-0.7) K/uL Baso # (Auto) (0.0-0.1) K/uL Nucleated RBC % /100WBC Nucleated RBCs # K/uL Sodium (136-145) mmol/L Potassium (3.5-5.1) mmol/L Chloride (98-107) mmol/L Carbon Dioxide (21.0-32.0) mmol/L BUN (7.0-18.0) mg/dL Creatinine (0.6-1.0) mg/dL Est Cr Clr Drug Dosing mL/min Estimated GFR (MDRD) ml/min Glucose (74-106) mg/dL POC Glucose 81 86 86 (60-110) mg/dL Calcium (8.5-10.1) mg/dL 06/16/19 06/16/19 06/16/19 Range/Units 07:06 07:06 11:09 WBC 2.64 L (4.0-11.0) K/uL RBC 3.09 L (4.30-5.90) M/uL Hgb 9.5 L (12.0-16.0) g/dL Hct 30.6 L (36.0-46.0) % MCV 99.0 H (80.0-98.0) fL MCH 30.7 (27.0-32.0) pg MCHC 31.0 (31.0-37.0) g/dL RDW Std Deviation 62.7 H (28.0-62.0) fl RDW Coeff of Mirian 17 H (11.0-15.0) % Plt Count 319 (150-400) K/uL MPV 9.00 (7.40-12.00) fL Neut % (Auto) 41.8 L (48.0-80.0) % Lymph % (Auto) 39.0 (16.0-40.0) % [place] % (Auto) 11.7 (0.0-15.0) % Eos % (Auto) 6.4 (0.0-7.0) % Baso % (Auto) 1.1 (0.0-1.5) % Neut # (Auto) 1.1 L (1.4-5.7) K/uL Lymph # (Auto) 1.0 (0.6-2.4) K/uL [place] # (Auto) 0.3 (0.0-0.8) K/uL Eos # (Auto) 0.2 (0.0-0.7) K/uL Baso # (Auto) 0.0 (0.0-0.1) K/uL Nucleated RBC % 0.0 /100WBC Nucleated RBCs # 0 K/uL Sodium 141 (136-145) mmol/L Potassium 4.9 (3.5-5.1) mmol/L Chloride 109 H (98-107) mmol/L Carbon Dioxide 23.4 (21.0-32.0) mmol/L BUN 39 H (7.0-18.0) mg/dL Creatinine 1.5 H (0.6-1.0) mg/dL Est Cr Clr Drug Dosing 26.69 mL/min Estimated GFR (MDRD) 33.6 ml/min Glucose 79 (74-106) mg/dL POC Glucose 84 (60-110) mg/dL Calcium 8.4 L (8.5-10.1) mg/dL 06/16/19 06/16/19 Range/Units 15:22 15:36 WBC (4.0-11.0) K/uL RBC (4.30-5.90) M/uL Hgb (12.0-16.0) g/dL Hct (36.0-46.0) % MCV (80.0-98.0) fL MCH (27.0-32.0) pg MCHC (31.0-37.0) g/dL RDW Std Deviation (28.0-62.0) fl RDW Coeff of Mirian (11.0-15.0) % Plt Count (150-400) K/uL MPV (7.40-12.00) fL Neut % (Auto) (48.0-80.0) % Lymph % (Auto) (16.0-40.0) % [place] % (Auto) (0.0-15.0) % Eos % (Auto) (0.0-7.0) % Baso % (Auto) (0.0-1.5) % Neut # (Auto) (1.4-5.7) K/uL Lymph # (Auto) (0.6-2.4) K/uL [place] # (Auto) (0.0-0.8) K/uL Eos # (Auto) (0.0-0.7) K/uL Baso # (Auto) (0.0-0.1) K/uL Nucleated RBC % /100WBC Nucleated RBCs # K/uL Sodium 139 (136-145) mmol/L Potassium 4.9 (3.5-5.1) mmol/L Chloride 108 H (98-107) mmol/L Carbon Dioxide 24.4 (21.0-32.0) mmol/L BUN 40 H (7.0-18.0) mg/dL Creatinine 1.4 H (0.6-1.0) mg/dL Est Cr Clr Drug Dosing 28.60 mL/min Estimated GFR (MDRD) 36.4 ml/min Glucose 84 (74-106) mg/dL POC Glucose 63 (60-110) mg/dL Calcium 8.4 L (8.5-10.1) mg/dL Med Orders - Current: Current Medications Calcium Carbonate/Glycine (Tums) 500 mg PO Q2HR PRN PRN Reason: Indigestion Last Admin: 06/15/19 03:57 Dose: 500 mg Docusate Sodium (Colace) 100 mg PO BID PRN PRN Reason: Constipation Last Admin: 06/15/19 11:50 Dose: 100 mg Heparin Sodium (Porcine) (Heparin Sodium) 5,000 units SUBCUT Q8H MARCOS Last Admin: 06/16/19 16:03 Dose: 5,000 units Heparin Sodium (Porcine) (Heparin Lock Flush 100 Units/Ml) 500 units FLUSH ONETIME ONE Stop: 06/16/19 17:56 Insulin Human Regular 100 unit (/ Sodium Chloride) 100 mls @ 1 mls/hr IV TITRATE MARCOS; Protocol Dextrose/Sodium Chloride (Dextrose 5%-Normal Saline) 1,000 mls @ 150 mls/hr IV ASDIRECTED MARCOS Last Admin: 06/16/19 16:02 Dose: 75 mls/hr Sodium Chloride (Saline Flush) 10 ml FLUSH ASDIRECTED PRN PRN Reason: Keep Vein Open Sodium Chloride (Saline Flush) 2.5 ml FLUSH ASDIRECTED PRN PRN Reason: Keep Vein Open Discontinued Medications Calcium Gluconate (Calcium Gluconate) 1 gm IVPUSH ONETIME ONE Stop: 06/13/19 22:54 Last Admin: 06/13/19 23:40 Dose: 1 gm Calcium Gluconate (Calcium Gluconate) 1 gm IVPUSH ONETIME ONE Stop: 06/14/19 18:08 Last Admin: 06/14/19 19:01 Dose: 1 gm Dextrose/Water (Dextrose 50% In Water) 25 ml IVPUSH ONETIME ONE Stop: 06/13/19 22:53 Last Admin: 06/13/19 23:34 Dose: 25 ml Dextrose/Water (Dextrose 50% In Water) 50 ml IVPUSH ONETIME ONE Stop: 06/14/19 09:32 Last Admin: 06/14/19 09:41 Dose: 50 ml Dextrose/Water (Dextrose 50% In Water) 50 ml IVPUSH ONETIME ONE Stop: 06/14/19 11:33 Last Admin: 06/14/19 11:38 Dose: 50 ml Dextrose/Water (Dextrose 50% In Water) 50 ml IVPUSH ONETIME ONE Stop: 06/14/19 18:17 Last Admin: 06/14/19 19:33 Dose: 50 ml Furosemide (Lasix) 40 mg IVPUSH NOW ONE Stop: 06/14/19 18:24 Last Admin: 06/14/19 19:33 Dose: 40 mg Sodium Chloride (Normal Saline) 1,000 mls @ 100 mls/hr IV ASDIRECTED MARCOS Last Admin: 06/13/19 21:41 Dose: 100 mls/hr Pantoprazole Sodium 80 mg/ (Sodium Chloride) 20 mls @ 420 mls/hr IVPUSH ONETIME ONE Stop: 06/13/19 21:20 Last Admin: 06/13/19 21:42 Dose: 420 mls/hr Sodium Chloride (Normal Saline) 1,000 mls @ 125 mls/hr IV ASDIRECTED MARCOS Last Admin: 06/13/19 23:53 Dose: 100 mls/hr Sodium Chloride (Normal Saline) 1,000 mls @ 125 mls/hr IV ASDIRECTED MARCOS Last Admin: 06/14/19 09:27 Dose: 125 mls/hr Dextrose/Sodium Chloride (Dextrose 5%-1/2 Ns) 1,000 mls @ 150 mls/hr IV ONETIME ONE Stop: 06/14/19 18:13 Last Admin: 06/14/19 11:41 Dose: 150 mls/hr Dextrose/Sodium Chloride (Dextrose 5%-1/2 Ns) 1,000 mls @ 150 mls/hr IV ASDIRECTED MARCOS Furosemide 40 mg/ Sodium (Chloride) 54 mls @ 100 mls/hr IV NOW STA Stop: 06/14/19 18:40 Last Admin: 06/14/19 19:00 Dose: Not Given Insulin Aspart (Novolog) 10 unit SUBCUT ONETIME ONE Stop: 06/14/19 09:33 Last Admin: 06/14/19 09:39 Dose: 10 units Insulin Human Regular (Novolin R) 10 unit IVPUSH ONETIME ONE; Protocol Stop: 06/13/19 22:54 Last Admin: 06/13/19 23:35 Dose: 10 units Sodium Polystyrene Sulfonate (Kayexalate) 15 gm PO ONETIME ONE Stop: 06/14/19 15:46 Last Admin: 06/14/19 15:51 Dose: 15 gm Sodium Polystyrene Sulfonate (Kayexalate) 15 gm PO ONETIME ONE Stop: 06/15/19 16:01 Last Admin: 06/15/19 16:27 Dose: 15 gm
== END 2019-06-16 19:00 | disposition home or self-care (01) ==
LOC: MW.ED 20:49 → MW.MS 23:54 → MW.ICU 06-14 16:26 → MW.MS 06-16 10:29
PROVIDERS: ADMIT Internal Medicine; ATTEND Internal Medicine
DX: E87.5 Hyperkalemia (principal); I12.9 Hypertensive chronic kidney disease with stage 1 through stage 4 chronic kidney disease, or unspecified chronic kidney disease; N18.4 Chronic kidney disease, stage 4 (severe); D64.9 Anemia, unspecified; Z90.49 Acquired absence of other specified parts of digestive tract; Z90.5 Acquired absence of kidney; Z88.2 Allergy status to sulfonamides; Z85.038 Personal history of other malignant neoplasm of large intestine; Z79.899 Other long term (current) drug therapy
CPT/HCPCS: 36415; 74176; 80048; 80053; 81003; 82024; 82150; 82533; 82962; 83690; 84132; 85025; 85610; 86850; 86900; 86901; 93005; A9270; C9113; J0610; J1642; J1644; J1815; J1940; J7030; J7042; J7050

== ENCOUNTER 2019-12-03 09:48 | Emergency (ER) | payer MEDICARE, BC ==
--- NOTE | 2019-12-03 09:57 | EDM.PDOC ---
ED HPI GENERAL MEDICAL PROBLEM - General Chief Complaint: General Stated Complaint: ARTHRITIS PAIN Time Seen by Provider: 12/03/19 09:53 Source of Information: Reports: Patient History Limitations: Reports: No Limitations - History of Present Illness INITIAL COMMENTS - FREE TEXT/NARRATIVE: 79-year-old female with history of aortitis, aortic aneurysm, pneumothorax, pneumonia, colon cancer, nephrectomy, rheumatoid arthritis presents with neck pain, bilateral shoulder pain, bilateral arm pain. Pain has been worsening over the last 3 days. Over the last 2 nights she has not been able to sleep secondary to pain. She denies fever, chills, nausea, vomiting, chest pain, shortness of breath, abdominal pain, new weakness or tingling or numbness in her bilateral upper extremities. Her PCP is Dr. Wilson at [facility]. ROS: A 10-point review of systems, other than pertinent positives and negatives as stated per HPI, is otherwise negative PHYSICAL EXAM General: AOx4, GCS = 15, mild distress HEENT: dry mucous membrane Neck: supple, no meningismus, no Kernig or Brudzinski, mild C-spine ttp Cardiac: S1S2 RRR Respiratory: CTAB, no crackles or rales, no wheezing Abdomen: Soft, nontender, no rebound or guarding, nondistended, no pulsatile mass. Back: nontender Musculoskeletal: Bilateral shoulder tenderness, NVI distally, no deformity, pulses sym B/L UE. Neuro: No focal deficits Onset: Today generalized Pain Score (Numeric/FACES): 10 - Related Data Allergies Allergy/AdvReac Type Severity Reaction Status Date / Time Sulfa (Sulfonamide Allergy Mild Hives Verified 12/03/19 10:05 Antibiotics) sulfamethoxazole Allergy Mild Hives Verified 12/03/19 10:05 [From Bactrim] trimethoprim [From Bactrim] Allergy Mild Hives Verified 12/03/19 10:05 Home Meds: Home Meds Aspirin [Adult Low Dose Aspirin EC] 81 mg PO DAILY 09/09/18 [History] Citalopram Hydrobromide [Celexa] 20 mg PO DAILY 09/09/18 [History] Metoprolol Tartrate [Lopressor] 25 mg PO BID 09/09/18 [History] Ondansetron [Zofran] 4 mg PO ASDIRECTED PRN 09/09/18 [History] Folic Acid [FA-8] 0.8 mg PO DAILY 06/13/19 [History] Furosemide [Lasix] mg PO DAILY 12/03/19 [History] Iron 18 mg PO DAILY 12/03/19 [History] Past Medical History - Past Health History Medical/Surgical History: Denies Medical/Surgical History HEENT History: Reports: Cataract, Impaired Vision, Other (See Below) Other HEENT History: wears glasses Cardiovascular History: Reports: Hypertension, Heart Valve Replacement Other Cardiovascular History: hx of aortic valve replacement (2018) Respiratory History: Reports: None, Pneumothorax Gastrointestinal History: Reports: GERD, Hiatal Hernia Genitourinary History: Reports: Acute Renal Failure, Dialysis Other Genitourinary History: hx of left kidney rupture during Aortic valve replacement TRUCK PACKER History: Reports: None Other TRUCK PACKER History: Hysterectomy. Musculoskeletal History: Reports: None, RA Neurological History: Reports: None Psychiatric History: Reports: None, Other (See Below) Other Psychiatric History: takes Citalopram to help with RA Endocrine/Metabolic History: Reports: None Hematologic History: Reports: Anemia, Blood Transfusion(s) Immunologic History: Reports: None Oncologic (Cancer) History: Reports: Colon, None Dermatologic History: Reports: None - Infectious Disease History Infectious Disease History: Reports: Chicken Pox, Measles - Past Surgical History Cardiovascular Surgical History: Reports: Other (See Below), Valve Replacement GI Surgical History: Reports: Colonoscopy, Colon, None, Other (See Below) Social & Family History - Family History Family Medical History: Noncontributory HEENT: Reports: Cataract, Impaired Vision Respiratory: Reports: COPD Oncologic: Reports: Leukemia, Lung - Caffeine Use Caffeine Use: Reports: None ED ROS GENERAL - Review of Systems Review Of Systems: Comprehensive ROS is negative, except as noted in HPI. ED EXAM, GENERAL - Physical Exam Exam: See Below (see dictation) EKG INTERPRETATION EKG Interpretation Comments: 90 Bpm, NSR, normal QRS interval, no STEMI. EKG and rhythm strip interpreted by me at [facility] Course - Vital Signs Last Recorded V/S: Last Vital Signs Temp 97.0 F 12/03/19 10:08 Pulse 70 12/03/19 12:00 Resp 17 12/03/19 10:08 BP 103/51 L 12/03/19 12:00 Pulse Ox 96 12/03/19 12:00 - Orders/Labs/Meds Orders: Active Orders 24 hr Category Date Time Status Cardiac Monitoring [RC] . DIRECTED Care 12/03/19 10:32 Active EKG Documentation Completion [RC] STAT Care 12/03/19 10:33 Active Sodium Chloride 0.9% [Saline Flush] Med 12/03/19 10:32 Active 10 ml FLUSH ASDIRECTED PRN Sodium Chloride 0.9% [Saline Flush] Med 12/03/19 10:32 Active 2.5 ml FLUSH ASDIRECTED PRN Saline Lock Insert [OM.PC] Stat Oth 12/03/19 10:32 Ordered Medication Orders Sodium Chloride (Saline Flush) 10 ml FLUSH ASDIRECTED PRN PRN Reason: Keep Vein Open Last Admin: 12/03/19 10:53 Dose: 10 ml Documented by: SORIN Sodium Chloride (Saline Flush) 2.5 ml FLUSH ASDIRECTED PRN PRN Reason: Keep Vein Open Last Admin: 12/03/19 10:53 Dose: 2.5 ml Documented by: SORIN Labs: Laboratory Tests 12/03/19 12/03/19 12/03/19 Range/Units 10:56 11:04 11:04 WBC 7.04 (4.0-11.0) K/uL RBC 4.01 L (4.30-5.90) M/uL Hgb 12.1 (12.0-16.0) g/dL Hct 37.0 (36.0-46.0) % MCV 92.3 (80.0-98.0) fL MCH 30.2 (27.0-32.0) pg MCHC 32.7 (31.0-37.0) g/dL RDW Std Deviation 48.7 (28.0-62.0) fl RDW Coeff of Mirian 14 (11.0-15.0) % Plt Count 320 (150-400) K/uL MPV 9.50 (7.40-12.00) fL Neut % (Auto) 83.0 H (48.0-80.0) % Lymph % (Auto) 7.8 L (16.0-40.0) % Bulloch % (Auto) 7.8 (0.0-15.0) % Eos % (Auto) 1.0 (0.0-7.0) % Baso % (Auto) 0.4 (0.0-1.5) % Neut # (Auto) 5.8 H (1.4-5.7) K/uL Lymph # (Auto) 0.6 (0.6-2.4) K/uL Bulloch # (Auto) 0.6 (0.0-0.8) K/uL Eos # (Auto) 0.1 (0.0-0.7) K/uL Baso # (Auto) 0.0 (0.0-0.1) K/uL Nucleated RBC % 0.0 /100WBC Nucleated RBCs # 0 K/uL INR APTT (18.6-31.3) SEC Lactate (0.20-2.00) mmol/L Sodium 136 (136-145) mmol/L Potassium 4.4 (3.5-5.1) mmol/L Chloride 101 (98-107) mmol/L Carbon Dioxide 24.6 (21.0-32.0) mmol/L BUN 62 H (7.0-18.0) mg/dL Creatinine 1.9 H (0.6-1.0) mg/dL Est Cr Clr Drug Dosing 20.19 mL/min Estimated GFR (MDRD) 25.6 ml/min Glucose 109 H (74-106) mg/dL Calcium 9.2 (8.5-10.1) mg/dL Phosphorus 4.1 (2.6-4.7) mg/dL Magnesium 2.0 (1.8-2.4) mg/dL Total Bilirubin 0.5 (0.2-1.0) mg/dL AST 18 (15-37) IU/L ALT 17 (14-63) IU/L Alkaline Phosphatase 163 H (46-116) U/L Creatine Kinase 59 (26-308) U/L Troponin I < 0.050 (0.000-0.056) ng/mL Total Protein 8.2 (6.4-8.2) g/dL Albumin 3.6 (3.4-5.0) g/dL Globulin 4.6 H (2.6-4.0) g/dL Albumin/Globulin Ratio 0.8 L (0.9-1.6) Urine Color YELLOW Urine Appearance CLEAR Urine pH 5.5 (5.0-8.0) Ur Specific Cochrane 1.015 (1.001-1.035) Urine Protein NEGATIVE (NEGATIVE) mg/dL Urine Glucose (UA) NEGATIVE (NEGATIVE) mg/dL Urine Ketones NEGATIVE (NEGATIVE) mg/dL Urine Occult Blood NEGATIVE (NEGATIVE) Urine Nitrite NEGATIVE (NEGATIVE) Urine Bilirubin NEGATIVE (NEGATIVE) Urine Urobilinogen 0.2 (<2.0) EU/dL Ur Leukocyte Esterase NEGATIVE (NEGATIVE) 12/03/19 12/03/19 Range/Units 11:04 11:04 WBC (4.0-11.0) K/uL RBC (4.30-5.90) M/uL Hgb (12.0-16.0) g/dL Hct (36.0-46.0) % MCV (80.0-98.0) fL MCH (27.0-32.0) pg MCHC (31.0-37.0) g/dL RDW Std Deviation (28.0-62.0) fl RDW Coeff of Mirian (11.0-15.0) % Plt Count (150-400) K/uL MPV (7.40-12.00) fL Neut % (Auto) (48.0-80.0) % Lymph % (Auto) (16.0-40.0) % Bulloch % (Auto) (0.0-15.0) % Eos % (Auto) (0.0-7.0) % Baso % (Auto) (0.0-1.5) % Neut # (Auto) (1.4-5.7) K/uL Lymph # (Auto) (0.6-2.4) K/uL Bulloch # (Auto) (0.0-0.8) K/uL Eos # (Auto) (0.0-0.7) K/uL Baso # (Auto) (0.0-0.1) K/uL Nucleated RBC % /100WBC Nucleated RBCs # K/uL INR 0.95 APTT 26.1 (18.6-31.3) SEC Lactate 0.5 (0.20-2.00) mmol/L Sodium (136-145) mmol/L Potassium (3.5-5.1) mmol/L Chloride (98-107) mmol/L Carbon Dioxide (21.0-32.0) mmol/L BUN (7.0-18.0) mg/dL Creatinine (0.6-1.0) mg/dL Est Cr Clr Drug Dosing mL/min Estimated GFR (MDRD) ml/min Glucose (74-106) mg/dL Calcium (8.5-10.1) mg/dL Phosphorus (2.6-4.7) mg/dL Magnesium (1.8-2.4) mg/dL Total Bilirubin (0.2-1.0) mg/dL AST (15-37) IU/L ALT (14-63) IU/L Alkaline Phosphatase (46-116) U/L Creatine Kinase (26-308) U/L Troponin I (0.000-0.056) ng/mL Total Protein (6.4-8.2) g/dL Albumin (3.4-5.0) g/dL Globulin (2.6-4.0) g/dL Albumin/Globulin Ratio (0.9-1.6) Urine Color Urine Appearance Urine pH (5.0-8.0) Ur Specific Cochrane (1.001-1.035) Urine Protein (NEGATIVE) mg/dL Urine Glucose (UA) (NEGATIVE) mg/dL Urine Ketones (NEGATIVE) mg/dL Urine Occult Blood (NEGATIVE) Urine Nitrite (NEGATIVE) Urine Bilirubin (NEGATIVE) Urine Urobilinogen (<2.0) EU/dL Ur Leukocyte Esterase (NEGATIVE) Meds: Medications Generic Name Dose Route Start Last Admin Trade Name Freq PRN Reason Stop Dose Admin Sodium Chloride 10 ml 12/03/19 10:32 12/03/19 10:53 Saline Flush FLUSH 10 ml ASDIRECTED PRN Administration Keep Vein Open Sodium Chloride 2.5 ml 12/03/19 10:32 12/03/19 10:53 Saline Flush FLUSH 2.5 ml ASDIRECTED PRN Administration Keep Vein Open Discontinued Medications Generic Name Dose Route Start Last Admin Trade Name Freq PRN Reason Stop Dose Admin Dexamethasone 8 mg 12/03/19 13:39 Dexamethasone IVPUSH 12/03/19 13:40 ONETIME ONE Lactated Ringer's 1,000 mls @ 999 mls/hr 12/03/19 10:32 12/03/19 10:51 Ringers, Lactated IV 12/03/19 11:32 999 mls/hr .BOLUS ONE Administration Morphine Sulfate 4 mg 12/03/19 10:32 12/03/19 10:52 Morphine IVPUSH 12/03/19 10:33 4 mg ONETIME ONE Administration - Re-Assessments/Exams Free Text/Narrative Re-Assessment/Exam: 12/03/19 09:56 After treatments and a prolonged observation period in the ER, the patient improved clinically and is stable for discharge. I performed a repeat examin ation and the patient has not demonstrated any new abnormal findings. Patient exhibits normal vital signs and has exhibited a normal gait. I advised the patient to return to the ER for reevaluation if symptoms worsened, and to follow up with their [facility] for reassessment of her kidney function. I notified patient of incidental findings on their CT scan of thr right kidney lesion, and the need for follow-up with nephrology for further work-up to monitor this or determine significance of finding. Pt voiced understanding and questions were answered. MEDICAL DECISION MAKING: I reviewed the patients past medical records, lab and radiographic findings. I discussed the case with the patient. My differential diagnosis included: Cervical degenerative disc disease. Her creatinine today = 1.9, increased from 1.4 on 06/16/2019, CT also demonstrated a lesion to the right kidney. She sees her call center representative Dr. Churchill in [place] on 12/18. I instructed her to follow-up with Dr. Churchill regarding her right kidney lesion and worsening kidney function today. Departure - Departure Time of Disposition: 13:41 Disposition: Home, Self-Care 01 Condition: Good Clinical Impression: Chronic kidney disease, Degenerative cervical disc - Discharge Information *PRESCRIPTION DRUG MONITORING PROGRAM REVIEWED*: Not Applicable *COPY OF PRESCRIPTION DRUG MONITORING REPORT IN PATIENT CHRIS: Not Applicable Instructions: Food Basics for Chronic Kidney Disease, Degenerative Disk Disease, Preventing Chronic Kidney Disease Referrals: Neftali Wilson MD [Primary Care Provider] - 1 Week Forms: ED Department Discharge Additional Instructions: The following information is given to patients seen in the emergency department who are being discharged to home. This information is to outline your options for follow-up care. We provide all patients seen in our emergency department with a follow-up referral. The need for follow-up, as well as the timing and circumstances, are variable depending upon the specifics of your emergency department visit. If you don't have a primary care physician on staff, we will provide you with a referral. We always advise you to contact your personal physician following an emergency department visit to inform them of the circumstance of the visit and for follow-up with them and/or the need for any referrals to a consulting specialist. The emergency department will also refer you to a specialist when appropriate. This referral assures that you have the opportunity for follow-up care with a specialist. All of these measure are taken in an effort to provide you with optimal care, which includes your follow-up. Under all circumstances we always encourage you to contact your private physician who remains a resource for coordinating your care. When calling for follow-up care, please make the office aware that this follow-up is from your recent emergency room visit. If for any reason you are refused follow-up, please contact the [facility] Emergency Department at and asked to speak to the emergency department charge nurse. If you do not have a primary care doctor, please follow up with the clinics below within 3-5 days. [facility] [address] [place] [id number] [address] Sepsis Event Note (ED) - Focused Exam Vital Signs: Vital Signs Temp Pulse Resp BP Pulse Ox 12/03/19 12:00 70 103/51 L 96 12/03/19 11:46 75 109/55 L 98 12/03/19 10:08 97.0 F 92 17 112/54 L 93 L - My Orders Last 24 Hours: My Active Orders 12/03/19 10:32 Cardiac Monitoring [RC] . DIRECTED Sodium Chloride 0.9% [Saline Flush] 10 ml FLUSH ASDIRECTED PRN Sodium Chloride 0.9% [Saline Flush] 2.5 ml FLUSH ASDIRECTED PRN Saline Lock Insert [OM.PC] Stat 12/03/19 10:33 EKG Documentation Completion [RC] STAT - Assessment/Plan Last 24 Hours: My Active Orders 12/03/19 10:32 Cardiac Monitoring [RC] . DIRECTED Sodium Chloride 0.9% [Saline Flush] 10 ml FLUSH ASDIRECTED PRN Sodium Chloride 0.9% [Saline Flush] 2.5 ml FLUSH ASDIRECTED PRN Saline Lock Insert [OM.PC] Stat 12/03/19 10:33 EKG Documentation Completion [RC] STAT
[2019-12-03] MEDS ORDERED: Lactated Ringers 1,000 ML IV ONE (10:32)
[2019-12-03] MEDS ORDERED: Morphine 4 MG/ML Syringe IVPUSH ONE (10:32)
[2019-12-03] MEDS ORDERED: Sodium Chloride 0.9% 2.5 ML Syringe FLUSH PRN (10:32)
[2019-12-03] MEDS ORDERED: Sodium Chloride 0.9% 10 ML Syringe FLUSH PRN (10:32)
[2019-12-03 11:57] LABS: BLOOD UREA NITROGEN,BUN 62 mg/dL (7.0-18.0); CARBON DIOXIDE,CO2 24.6 mmol/L (21.0-32.0); CHLORIDE,CL 101 mmol/L (98-107); GLUCOSE RANDOM 109 mg/dL (74-106); POTASSIUM,K 4.4 mmol/L (3.5-5.1); SODIUM,NA 136 mmol/L (136-145)
--- NOTE | 2019-12-03 12:47 | CT ---
CT cervical spine Technique: Multiple axial sections were obtained from above C1 inferiorly to the bottom of T4. Reconstructed sagittal and coronal images were reviewed. Findings: Mild spondylolisthesis is noted C4-5 which is due to degenerative apophyseal change. Other degenerative apophyseal change is seen throughout the cervical spine. Mild disc space narrowing is noted at C5-6 with moderate to severe disc space narrowing at C6-7. Slight posterior spurring is noted at C6-7. Anterior osteophytes are seen within the cervical spine most prominent at C6-7. Ligamentum nuchal calcification is seen. Neural foramina are fairly well patent. No fracture is appreciated. Fairly severe degenerative change is noted within the left temporomandibular joint. Bony structures are osteopenic. Impression: 1. Degenerative change as described above. 2. Nothing acute is appreciated on CT study of the cervical spine. Diagnostic code #2 This report was dictated in MDT
--- NOTE | 2019-12-03 12:57 | CT ---
CT abdomen and pelvis Technique: Moderately large hiatal hernia is noted. Nothing acute is seen within the visualized lung bases. Liver contains no discrete abnormality. Spleen size is normal. Gallbladder contains several small gallstones. Adrenal glands show no discrete nodule. Right kidney shows a cyst measuring 2.8 cm. Left kidney not visualized with surgical clips presumably from prior left nephrectomy. Hyperdense lesion is noted off the inferior right kidney measuring 1.7 cm. Differential with solid lesion versus hemorrhagic cyst. Right ureter shows no dilatation or abnormal calcifications. Prior bowel surgery noted within the upper abdomen from prior right-sided hemicolectomy. Aorta shows atherosclerotic calcification with ectasia without focal aneurysm. Atherosclerotic change continues into ectatic common iliac arteries. No pelvic mass or adenopathy is seen. No free fluid or inflammatory change is seen. Bone window settings were reviewed which shows scattered degenerative change within the spine. No acute osseous finding is appreciated. Mild scoliosis is noted. Impression: 1. Ectatic aorta with atherosclerotic change without aneurysm. 2. Prior left nephrectomy and prior right hemicolectomy. 3. 1.7 cm hyperdense lesion within the inferior right kidney. Uncertain if this represents solid abnormality or represents a hemorrhagic cyst. MRI would be needed to differentiate if patient can receive contrast. 4. Other findings as noted above believed to be chronic. Nothing acute is appreciated. Diagnostic code #3 This report was dictated in MDT
--- NOTE | 2019-12-03 12:57 | CT ---
CT chest Technique: Multiple axial sections were obtained from above the lung apices inferiorly through the lung bases. Intravenous contrast was not utilized. Comparison: No prior chest imaging. Ectatic ascending aorta is seen measuring 3.8 cm. Descending aorta is ectatic measuring 2.9 cm. Slightly prominent pericardial recess is seen which is a normal variant. Atherosclerotic calcification is noted within the aorta. Infusion port is seen entering from the right side. Moderately large hiatal hernia is noted. No pericardial thickening is seen. Lungs are clear with no acute parenchymal change. No pulmonary nodule is noted. Slight pleural thickening is seen within the left base which is most likely chronic. Slight parenchymal densities are seen within the left base felt to represent areas of adjacent parenchymal scarring. No acute pleural effusions are noted. Bone window settings were reviewed showing mild degenerative change spine. Bilateral unfused os acromiale is are noted shoulders. Impression: 1. Ectatic ascending and descending aorta. 2. Other findings believed to be chronic. Nothing acute is appreciated. Diagnostic code #2 This report was dictated in MDT
[2019-12-03] MEDS ORDERED: Dexamethasone 10 MG/ML SDV IVPUSH ONE (13:39)
== END 2019-12-03 14:00 | disposition home or self-care (01) ==
LOC: MW.ED 09:48
DX: M50.322 Other cervical disc degeneration at C5-C6 level (principal); M50.323 Other cervical disc degeneration at C6-C7 level; I12.9 Hypertensive chronic kidney disease with stage 1 through stage 4 chronic kidney disease, or unspecified chronic kidney disease; N18.9 Chronic kidney disease, unspecified; Z88.2 Allergy status to sulfonamides; Z79.82 Long term (current) use of aspirin; Z79.899 Other long term (current) drug therapy
CPT/HCPCS: 36415; 71250; 72125; 74176; 80053; 81003; 82550; 83605; 83735; 84100; 84484; 85025; 85610; 85730; 93005; 96374; 96375; 99284; J1100; J2270; J7120

== ENCOUNTER 2021-11-06 04:23 | Emergency (ER) | payer MEDICARE, BC ==
[2021-11-06] MEDS ORDERED: Metoclopramide 10 MG/2 ML SDV IM ONE (04:45)
[2021-11-06] MEDS ORDERED: Pantoprazole 40 MG Tab.CR PO STA (04:50)
[2021-11-06 05:15] LABS: CARBON DIOXIDE,CO2 19.9 mmol/L (21.0-32.0); POTASSIUM,K 4.5 mmol/L (3.5-5.1)
[2021-11-06] MEDS ORDERED: Pantoprazole 40 MG Tab.CR PO SCH (21:00)
== END 2021-11-06 05:59 | disposition home or self-care (01) ==
LOC: MW.ED 04:23
DX: K21.9 Gastro-esophageal reflux disease without esophagitis (principal); I10 Essential (primary) hypertension; Z88.2 Allergy status to sulfonamides; Z88.1 Allergy status to other antibiotic agents; Z79.82 Long term (current) use of aspirin
CPT/HCPCS: 36415; 80053; 82150; 85025; 96372; 99284; A9270; J2765; 99283

== ENCOUNTER 2021-11-20 12:39 | Day surgery (SDC) | payer MEDICARE, BC ==
[~2021-11-20 12:39] MED LIST: cefOXitin 2 GM in Premix Bag 1 BAG IV ONE
[2021-11-20] MEDS: Lactated Ringers 1,000 ML IV SCH (13:02)
[2021-11-20] MEDS ORDERED: Propofol 200 MG/20 ML SDV ONE (14:45)
[2021-11-20] MEDS ORDERED: Ondansetron 4 MG/2 ML SDV IVPUSH PRN (16:22)
[2021-11-20] MEDS ORDERED: Acetaminophen 325 MG Tab PO PRN (16:22)
[2021-11-20] MEDS ORDERED: Lactated Ringers 1,000 ML IV SCH (16:30)
== END 2021-11-20 17:25 | disposition home or self-care (01) ==
LOC: MW.SDS 12:39
PROVIDERS: ATTEND Surgery
DX: K31.89 Other diseases of stomach and duodenum (principal); K29.00 Acute gastritis without bleeding; K21.00 Gastro-esophageal reflux disease with esophagitis, without bleeding; K44.9 Diaphragmatic hernia without obstruction or gangrene; Z88.2 Allergy status to sulfonamides; Z88.8 Allergy status to other drugs, medicaments and biological substances; Z98.890 Other specified postprocedural states; Z79.899 Other long term (current) drug therapy
CPT/HCPCS: 00731; 99100; J2704; J7120

== ENCOUNTER 2021-11-22 16:06 | Emergency (ER) | payer MEDICARE, BC ==
[2021-11-22] MEDS ORDERED: Sodium Chloride 0.9% 500 ML IV ONE (16:19)
[2021-11-22] MEDS ORDERED: Ondansetron 4 MG/2 ML SDV IVPUSH ONE (16:19)
[2021-11-22] MEDS ORDERED: Alum Hydro/Mag Hydro/Simeth XS 15 ML, Metoclopramide 5 MG, Lidocaine 2% 5 ML PO ONE ×3 (16:20)
[2021-11-22 17:13] LABS: BLOOD UREA NITROGEN,BUN 17 mg/dL (7.0-18.0); CARBON DIOXIDE,CO2 21.1 mmol/L (21.0-32.0); CHLORIDE,CL 101 mmol/L (98-107); GLUCOSE RANDOM 101 mg/dL (74-106); LIPASE 89 U/L (73-393); POTASSIUM,K 4.1 mmol/L (3.5-5.1); SODIUM,NA 135 mmol/L (136-145)
[2021-11-22 17:14] LABS: ESTIMATED GFR 28 mL/min (>60)
== END 2021-11-22 18:16 | disposition home or self-care (01) ==
LOC: MW.ED 16:06
DX: K44.9 Diaphragmatic hernia without obstruction or gangrene (principal); R11.2 Nausea with vomiting, unspecified; I10 Essential (primary) hypertension; Z88.2 Allergy status to sulfonamides; Z79.899 Other long term (current) drug therapy; Z90.710 Acquired absence of both cervix and uterus; Z20.822 Contact with and (suspected) exposure to COVID-19
CPT/HCPCS: 36415; 80053; 83690; 83735; 85025; 96374; 99284; A9270; J2405; J7030; U0002

== ENCOUNTER 2024-05-18 08:59 | Emergency (ER) | payer MEDICARE, BC ==
[2024-05-18 10:56] LABS: BASOPHILS ABSOLUTE AUTO 0.03 K/uL (0.00-0.20); BASOPHILS PERCENT AUTO 0.3 % (0.0-1.0); EOSINOPHILS ABSOLUTE AUTO 0.11 K/uL (0.00-0.45); EOSINOPHILS PERCENT AUTO 1.2 % (0.0-6.0); HEMATOCRIT 37.6 % (37.0-47.0); HEMOGLOBIN 12.4 g/dL (12.0-16.0); IMMATURE GRAN ABSOLUTE AUTO 0.05 K/uL (0.00-0.05); IMMATURE GRAN PERCENT AUTO 0.5 % (0.0-0.4); LYMPHOCYTES ABSOLUTE AUTO 0.63 K/uL (1.00-4.80); LYMPHOCYTES PERCENT AUTO 6.8 % (24.0-44.0); MEAN CORPUSCULAR HEMOGLOBIN 29.6 pg (28.0-32.0); MEAN CORPUSCULAR VOLUME 89.7 fL (83.0-99.0); MEAN PLATELET VOLUME 10.1 fL (9.4-12.3); MONOCYTES ABSOLUTE AUTO 1.18 K/uL (0.00-0.80); MONOCYTES PERCENT AUTO 12.8 % (0.0-8.0); NEUTROPHILS ABSOLUTE AUTO 7.24 K/uL (1.80-7.70); NEUTROPHILS PERCENT AUTO 78.4 % (41.0-71.0); PLATELET COUNT,PLT 202 K/uL (150-400); RED BLOOD CELL COUNT 4.19 M/uL (4.10-5.30); WHITE BLOOD CELL COUNT,WBC 9.24 K/uL (3.9-11.3)
[2024-05-18 11:17] LABS: ALBUMIN 3.1 g/dL (3.4-5.0); CARBON DIOXIDE,CO2 22.6 mmol/L (21.0-32.0); CREATININE 1.5 mg/dL (0.6-1.0); EST CRCL DRUG DOSING (CG) 23.51 mL/min; POTASSIUM,K 4.8 mmol/L (3.5-5.1); PROTEIN TOTAL,TP 6.1 g/dL (6.4-8.2)
[2024-05-18 11:19] LABS: INR 1.05 (0.86-1.11)
[2024-05-18] MEDS: Apixaban 5 MG Tab PO STA (12:53)
== END 2024-05-18 12:58 | disposition home or self-care (01) ==
LOC: MW.ED 08:59
DX: I82.A12 Acute embolism and thrombosis of left axillary vein (principal); I10 Essential (primary) hypertension; Z90.710 Acquired absence of both cervix and uterus; Z95.2 Presence of prosthetic heart valve; Z88.2 Allergy status to sulfonamides; Z88.8 Allergy status to other drugs, medicaments and biological substances; Z79.01 Long term (current) use of anticoagulants; Z79.899 Other long term (current) drug therapy; Z75.8 Other problems related to medical facilities and other health care
CPT/HCPCS: 36415; 80053; 85025; 85610; 93971; 99284; A9270